=== PATIENT | female | born 1950 | race Two or more races ===

== ENCOUNTER 2022-10-13 12:31 | Inpatient (IN) | payer OTHER ==
[~2022-10-13] VITALS: Ht 165.1 cm; Wt 74.8 kg
--- NOTE | 2022-10-13 12:44 | NUR ---
DR OVIEDO AT BEDSIDE
[2022-10-13 13:43] LABS: BASOPHILS % (AUTO) 0.6 % (0.0-2.0); EOSINOPHILS % (AUTO) 2.6 % (0.0-6.0); HEMATOCRIT 32 % (33-45); HEMOGLOBIN 10.5 g/dL (11.5-14.8); LYMPHOCYTES # (AUTO) 0.6 K/uL (0.8-4.8); LYMPHOCYTES % (AUTO) 16.6 % (20.0-44.0); MEAN CORPUSCULAR HGB CONC 33 g/dl (31.0-36.0); MEAN CORPUSCULAR VOLUME 84 fL (82-100); MONOCYTES # (AUTO) 0.2 K/uL (0.1-1.30); MONOCYTES % (AUTO) 7.1 % (2.0-12.0); NEUTROPHILS # (AUTO) 2.4 K/uL (1.8-8.9); NEUTROPHILS % (AUTO) 73.1 % (43.0-81.0); PLATELET COUNT (AUTO) 292 K/uL (150-450); RED BLOOD CELL COUNT(AUTO) 3.83 MIL/uL (4.0-5.2); WHITE BLOOD COUNT (AUTO) 3.3 K/uL (4.3-11.0)
[2022-10-13 14:03] LABS: CARBON DIOXIDE 31 mmol/L (21-32); CHLORIDE 100 mmol/L (98-107); CREATININE 1.2 mg/dL (0.6-1.3); GLUCOSE 83 mg/dL (74-106); POTASSIUM 3.6 mmol/L (3.5-5.1); SODIUM SERUM 139 mmol/L (136-145); UREA NITROGEN, BLOOD 39 mg/dL (7-18)
[2022-10-13 14:08] LABS: ALANINE AMINOTRANSFERASE 30 U/L (12-78); ALBUMIN 2.3 g/dL (3.4-5.0); ALKALINE PHOSPHATASE 182 U/L (46-116); ASPARTATE AMINOTRANSFERASE 20 U/L (15-37); BILIRUBIN,DIRECT 0.1 mg/dL (0.0-0.2); BILIRUBIN,TOTAL 0.2 mg/dL (0.2-1.0); LIPASE 341 U/L (73-393); TOTAL PROTEIN, SERUM 6.7 g/dL (6.4-8.2)
[2022-10-13] MEDS ORDERED: GLIP5TAB13 PO (15:35)
[2022-10-13] MEDS ORDERED: METF-440 PO (15:35)
[2022-10-13] MEDS ORDERED: FURO-144 PO (15:35)
--- NOTE | 2022-10-13 16:31 | NUR ---
RAPID COVID SWAB DONE AND SENT TO LAB
--- NOTE | 2022-10-13 17:08 | NUR ---
SPOKE TRE RUIZ, ASKED US TO RESEND CLINICALS TO #[phone]
--- NOTE | 2022-10-13 18:11 | NUR ---
urine sample obtained sent to lab
[2022-10-13 18:14] LABS: BILIRUBIN,URINE NEGATIVE (NEGATIVE); COLOR,URINE YELLOW (YELLOW); LEUKOCYTE ESTERASE ,URINE NEGATIVE (NEGATIVE); NITRITE, URINE NEGATIVE (NEGATIVE); PROTEIN,URINE 2+ mg/dl (NEGATIVE); UGLUCOSE NEGATIVE (NEGATIVE); UROBILINOGEN,URINE 0.2 EU/dL (0.2)
[2022-10-13 18:39] LABS: BACTERIA,URINE None seen /HPF (None Seen); SQUAMOUS EPITHELIAL CELL,UR 0-2 /HPF (None Seen); WBC,URINE 0-2 /HPF (0-3)
--- NOTE | 2022-10-13 18:45 | NUR ---
Per vlad gonsalez pt will go to [facility], room pending, fax updated ED note (fax [phone])
--- NOTE | 2022-10-13 19:12 | NUR ---
AUTHORIZATION GIVEN TO STAY
[2022-10-13] MEDS ORDERED: DEXTROSE 50%-WATER 50 ML DISP.SYRIN IV PRN (21:00)
[2022-10-13] MEDS ORDERED: IV D5/ 0.9% NACL 1,000 ML IV PRN (21:00)
[2022-10-13] MEDS ORDERED: ACETAMINOPHEN 325 MG TABLET PO PRN (21:00)
[2022-10-13] MEDS ORDERED: *INSULIN REGULAR(HUMULIN R)HUM 100 UNIT/ML VIAL SQ PRN (21:00)
[2022-10-13] MEDS ORDERED: INSULIN REGULAR, HUMAN 100 UNIT/ML 3 ML VIAL SQ PRN (21:00)
[2022-10-13] MEDS ORDERED: ZOLPIDEM TARTRATE 5 MG TABLET PO PRN (21:00)
--- NOTE | 2022-10-13 21:06 | NUR ---
RECLAMATION WORKER AT PT'S BEDSIDE
[2022-10-13 22:19] LABS: CREATININE 1.2 mg/dL (0.6-1.3); POTASSIUM 4.1 mmol/L (3.5-5.1)
--- NOTE | 2022-10-13 22:39 | NUR ---
GOT BED 328-2.
--- NOTE | 2022-10-13 23:11 | NUR ---
REPORT GIVEN TO MELISSA HARRIS.
--- NOTE | 2022-10-13 23:27 | NUR ---
PT TRANSFERRING TO 3W 328-2 VIA ACLS PROTOCOL. VSS. ALL BELONGINGS WITH PT
[2022-10-13 23:30] VITALS: BP 210/97
[2022-10-13] MEDS: FUROSEMIDE 40 MG/4 ML VIAL IV SCH (23:56)
--- NOTE | 2022-10-14 00:11 | NUR ---
admitted from ER alert and orientated X4 Blood sugar 122 at this time no coverage ordered patient stated "yes" she wanted to be given the ordered Lasix when asked lasix given
--- NOTE | 2022-10-14 05:28 | NUR ---
RN CLOSING NOTES: ADMITTED 10/13 @ 2330 FROM THE ER BLOOD SUGAR AT THIS TIME 122 AMBULATES TO THE BATHROOM WITH STANDBY ASSIST CHANGES HER OWN POSITION IN THE BED CALL LIGHT WITHIN REACH AND SHE WILL USE IT TO NOTIFY THE NURSE THE NEED TO USE THE RESTROOM SHE IS ALERT AND ORIENTATED X4
[2022-10-14] MEDS: BLOOD SUGAR DIAGNOSTIC 1 EACH STRIP VI SCH ×5 (05:55→12:20)
[2022-10-14 06:32] LABS: BASOPHILS % (AUTO) 0.9 % (0.0-2.0); EOSINOPHILS % (AUTO) 3.4 % (0.0-6.0); HEMATOCRIT 29 % (33-45); HEMOGLOBIN 9.6 g/dL (11.5-14.8); LYMPHOCYTES % (AUTO) 18.9 % (20.0-44.0); MEAN CORPUSCULAR HGB CONC 33 g/dl (31.0-36.0); MEAN CORPUSCULAR VOLUME 84 fL (82-100); MONOCYTES # (AUTO) 0.4 K/uL (0.1-1.30); MONOCYTES % (AUTO) 8.5 % (2.0-12.0); NEUTROPHILS # (AUTO) 3.5 K/uL (1.8-8.9); NEUTROPHILS % (AUTO) 68.3 % (43.0-81.0); PLATELET COUNT (AUTO) 292 K/uL (150-450); RED BLOOD CELL COUNT(AUTO) 3.43 MIL/uL (4.0-5.2); WHITE BLOOD COUNT (AUTO) 5.2 K/uL (4.3-11.0)
[2022-10-14 07:00] VITALS: BP 146/67
--- NOTE | 2022-10-14 07:25 | NUR ---
MS RN OPENING NOTES RECEIVED PATIENT IN BED AWAKE AND ALERT. A/O X 4. ABLE TO MAKE NEEDS KNOWN. NO S/S OF RESPIRATORY DISTRESS NOTED, ON ROOM AIR.BREATHING EVEN AND UNLABORED. IV ACCESS ON RAC G#20 INTACT WITH IVF OF D5 NS @ 50ML/HR INFUSING WELL. SAFETY MEASURES GIVEN WITH BED LOCKED AND AT LOWEST POSITION. SIDE-RAILS UP X2, CALL LIGHT AND TRAY WITHIN REACH. WILL CONTINUE WITH THE PLAN OF CARE.
[2022-10-14] MEDS: FUROSEMIDE 40 MG/4 ML VIAL IV SCH (08:54)
--- NOTE | 2022-10-14 13:59 | NUR ---
MS UNDER PRESSER NOTES PATIENT DISCHARGE TO HOME IN MEDICALLY STABLE CONDITION, AWAKE, ALERT AND ORIENTED. A/O X 4. ABLE TO MAKE NEEDS KNOWN. NO S/S OF RESPIRATORY DISTRESS NOTED, ON ROOM AIR. BREATHING EVEN AND UNLABORED. PATIENT HAD VOIDED EARLIER OF THE DAY. ALL BELONGINGS UPON ADMISSION HAD BEEN ACCOUNTED FOR. DISCHARGE INSTRUCTIONS DISCUSSED WITH PATIENT AND DISCHARGE PACKET HANDED OVER. CHARGE NURSE AWARE OF THE DISCHARGE.
== END 2022-10-14 14:00 | disposition home or self-care (01) | DRG 639 ==
LOC: ER 12:43 → TELE 22:46 → MED 10-14 00:20
PROVIDERS: ADMIT Internal Medicine; ATTEND Internal Medicine
DX: E11.649 Type 2 diabetes mellitus with hypoglycemia without coma (principal); Z20.822 Contact with and (suspected) exposure to COVID-19; I10 Essential (primary) hypertension; Z79.84 Long term (current) use of oral hypoglycemic drugs; Z79.899 Other long term (current) drug therapy; D53.9 Nutritional anemia, unspecified
CPT/HCPCS: 36415; 70450-TC; 71045-TC; 80048-TC; 80076-TC; 81001; 82962-TC; 83690-TC; 83735-TC; 83880; 84484-TC; 85025-TC; 87081-TC; C9803; G0378; J1815; J1940; J7042

== ENCOUNTER 2022-11-05 21:19 | Inpatient (IN) | payer OTHER ==
[~2022-11-05] VITALS: Ht 152.4 cm; Wt 78.9 kg
--- NOTE | 2022-11-05 21:20 | NUR ---
BIB DAUGHTER FOR ALTERED MENTAL STATUS AN HOUR AGO. PATIENT IS AAOX0. KNOWN DIABETIC. NON RESPONSIVE TO VERBAL AND NON VERBAL STIMULI. ATTACHED TO MONITOR. VITALS CHECKED. BP 204/121mmHg. DR ANDERSON MADE AWARE
--- NOTE | 2022-11-05 21:23 | NUR ---
IV YAMILET G20 INSERTED ON LEFT AC. BLOOD DRAWN AND SENT TO LAB
--- NOTE | 2022-11-05 21:25 | NUR ---
ACCU CHECK DONE BS OF 19mg/dl. AWARE. TO GIVE D50 50CC IV PUSH
[2022-11-05] MEDS ORDERED: DEXTROSE 50%-WATER 50 ML DISP.SYRIN ONE (21:34)
[2022-11-05] MEDS ORDERED: IV NS 0.9% 250 ML IV ONE (21:47)
[2022-11-05] MEDS ORDERED: IOHEXOL-350 100 ML VIAL IV ONE (21:47)
[2022-11-05] MEDS ORDERED: DEXTROSE 50%-WATER 50 ML DISP.SYRIN IV ONE (22:00)
--- NOTE | 2022-11-05 22:00 | NUR ---
BACK FROM CT
[2022-11-05 22:08] LABS: BASOPHILS % (AUTO) 0.4 % (0.0-2.0); EOSINOPHILS % (AUTO) 2.1 % (0.0-6.0); HEMATOCRIT 34 % (33-45); LYMPHOCYTES # (AUTO) 1.5 K/uL (0.8-4.8); LYMPHOCYTES % (AUTO) 23.2 % (20.0-44.0); MEAN CORPUSCULAR HGB CONC 33 g/dl (31.0-36.0); MEAN CORPUSCULAR VOLUME 82 fL (82-100); MONOCYTES # (AUTO) 0.6 K/uL (0.1-1.30); MONOCYTES % (AUTO) 9.3 % (2.0-12.0); NEUTROPHILS # (AUTO) 4.3 K/uL (1.8-8.9); PLATELET COUNT (AUTO) 293 K/uL (150-450); RED BLOOD CELL COUNT(AUTO) 4.13 MIL/uL (4.0-5.2); WHITE BLOOD COUNT (AUTO) 6.7 K/uL (4.3-11.0)
[2022-11-05 22:17] LABS: CALCIUM, SERUM 8.8 mg/dL (8.5-10.1); CARBON DIOXIDE 33 mmol/L (21-32); CHLORIDE 95 mmol/L (98-107); CREATININE 1.1 mg/dL (0.6-1.3); POTASSIUM 4.2 mmol/L (3.5-5.1); SERUM AMMONIA 5 umol/L (11-32); SODIUM SERUM 132 mmol/L (136-145); UREA NITROGEN, BLOOD 33 mg/dL (7-18)
--- NOTE | 2022-11-05 22:17 | NUR ---
URINE SPECIMEN SENT TO LAB. PATIENT IS MORE ALERT NOW. AAOX4 AFTER D50 50CC IVP
[2022-11-05 22:30] LABS: ALANINE AMINOTRANSFERASE 33 U/L (12-78); ALBUMIN 2.6 g/dL (3.4-5.0); ALKALINE PHOSPHATASE 225 U/L (46-116); ASPARTATE AMINOTRANSFERASE 28 U/L (15-37); BILIRUBIN,DIRECT 0.1 mg/dL (0.0-0.2); BILIRUBIN,TOTAL 0.2 mg/dL (0.2-1.0); TOTAL PROTEIN, SERUM 7.5 g/dL (6.4-8.2)
--- NOTE | 2022-11-05 22:35 | NUR ---
STROKE REASSESSMENT DONE. PATIENT PASSED SWALLOWING EVAL ON REASSESSMENT. LATEST BS IS 55mg/dl
[2022-11-05 22:36] LABS: ALCOHOL, BLOOD < 3 mg/dL (0-0); GLUCOSE 26 mg/dL (74-106)
[2022-11-05 22:41] LABS: THYROID STIMULATING HORMONE 7.046 uIU/mL (0.358-3.74)
[2022-11-05 22:43] LABS: BILIRUBIN,URINE NEGATIVE (NEGATIVE); COLOR,URINE YELLOW (YELLOW); LEUKOCYTE ESTERASE ,URINE NEGATIVE (NEGATIVE); NITRITE, URINE NEGATIVE (NEGATIVE); PROTEIN,URINE 2+ mg/dl (NEGATIVE); UGLUCOSE NEGATIVE (NEGATIVE); UROBILINOGEN,URINE 0.2 EU/dL (0.2)
[2022-11-05 22:47] LABS: BACTERIA,URINE Rare /HPF (None Seen); SQUAMOUS EPITHELIAL CELL,UR Few /HPF (None Seen)
--- NOTE | 2022-11-05 22:50 | NUR ---
COVID SWAB DONE AND SENT TO LAB
[2022-11-05] MEDS ORDERED: IV D5/0.45 NACL 1,000 ML IV ONE (23:00)
[2022-11-05] MEDS ORDERED: LABETALOL HCL IV 100MG VIAL IV ONE (23:00)
--- NOTE | 2022-11-05 23:33 | NUR ---
LABETOLOL 20mg ivp GIVEN FOR BP 197/108mmHg, HR 99bpm
--- NOTE | 2022-11-05 23:49 | NUR ---
Regina kovacs in [facility] - 11/05/22 at 2351 by SILVIA REPORT GIVEN TO MELISSA TRIANA
--- NOTE | 2022-11-05 23:49 | NUR ---
Regina kovacs in ED - 11/05/22 at 2351 by SILVIA INFORMED DAUGHTER SANCHO THAT WE CANNOT TRANSFER PATIENT TO [facility] DUE TO UN AVAILABILITY OF BED. DAUGHTER REQUESTED UPDATE OF MOM'S CONDITION EVERY SHIFT.
--- NOTE | 2022-11-06 00:28 | NUR ---
REPORT GIVEN TO KIMBER LIVINGSTON CM AT [phone]
--- NOTE | 2022-11-06 00:30 | NUR ---
IVF OF D5 0.45NaCl INCREASED TO 150CC/HR.
--- NOTE | 2022-11-06 01:12 | NUR ---
VERBAL AUTH FROM KIMBER OLEARY
--- NOTE | 2022-11-06 02:09 | NUR ---
DR ANDERSON ON THE PHONE WITH DR GARCIA, HOSPITALIST
--- NOTE | 2022-11-06 03:15 | NUR ---
Report given to Demetrio Nuñez. Will transfer Pt to Rm 119-1.
--- NOTE | 2022-11-06 03:56 | NUR ---
SENIOR COPYWRITER NOTE ADMITTED PT FORM ER WITH THE DX OF HYPOGLYCEMIA AND HTN. ON 1L O2 VIA NC O2 SAT 98%. NO DISTRESS OR DISCOMFORT NOTED. DENIES PAIN. SKIN INTACT. A/O X 3. PT ABLE TO AMBULATE WITH ASSISTANCE. LAC # 20 G IVF D 5 1/2 NS INFUSING AT 100 ML/HR, NO S/S OF INFILTRATION NOTED. ALL NEEDS ATTENDED. CONTINUE TO MONITOR HER.
[2022-11-06 04:00] VITALS: BP 164/98
[2022-11-06] MEDS ORDERED: ACETAMINOPHEN 325 MG TABLET PO PRN (05:00)
[2022-11-06] MEDS ORDERED: IV 10% DEXTROSE 1,000 ML IV PRN (05:00)
[2022-11-06] MEDS ORDERED: HYDROCODONE/APAP 10/325MG TABLET PO PRN (05:00)
[2022-11-06] MEDS ORDERED: HYDROCODONE/APAP 5/325MG TABLET PO PRN (05:00)
[2022-11-06] MEDS ORDERED: CLONIDINE HCL 0.1 MG TABLET PO PRN (05:00)
[2022-11-06] MEDS ORDERED: ONDANSETRON HCL/PF 4 MG/2 ML VIAL IV PRN (05:00)
--- NOTE | 2022-11-06 05:00 | NUR ---
BATCH FREEZER OPERATOR NOTE DR GARCIA CALLED AND RECEIVED ADMITTING ORDERS. PT ADMITTED TO TELE AND DX WITH HYPOGLYCEMIA.
[2022-11-06] MEDS ORDERED: BLOOD SUGAR DIAGNOSTIC 1 EACH STRIP IN SCH (06:00)
[2022-11-06] MEDS: hydrALAZINE HCL IV 20 MG VIAL IV PRN (06:05)
[2022-11-06] MEDS: ENOXAPARIN SODIUM 40 MG/0.4 ML DISP.SYRIN SQ SCH (06:05)
[2022-11-06 06:17] LABS: BASOPHILS % (AUTO) 0.4 % (0.0-2.0); EOSINOPHILS % (AUTO) 1.1 % (0.0-6.0); HEMATOCRIT 28 % (33-45); HEMOGLOBIN 9.2 g/dL (11.5-14.8); LYMPHOCYTES # (AUTO) 1.1 K/uL (0.8-4.8); LYMPHOCYTES % (AUTO) 17.5 % (20.0-44.0); MEAN CORPUSCULAR HGB CONC 33 g/dl (31.0-36.0); MEAN CORPUSCULAR VOLUME 82 fL (82-100); MONOCYTES # (AUTO) 0.6 K/uL (0.1-1.30); MONOCYTES % (AUTO) 9.7 % (2.0-12.0); NEUTROPHILS # (AUTO) 4.6 K/uL (1.8-8.9); NEUTROPHILS % (AUTO) 71.3 % (43.0-81.0); PLATELET COUNT (AUTO) 230 K/uL (150-450); RED BLOOD CELL COUNT(AUTO) 3.39 MIL/uL (4.0-5.2); WHITE BLOOD COUNT (AUTO) 6.4 K/uL (4.3-11.0)
--- NOTE | 2022-11-06 06:31 | NUR ---
DINING ROOM HOST/HOSTESS NOTE PT IN NO DISTRESS OR DISCOMFORT, DENIES PAIN. ALL NEEDS ATTENDED. D 10% INFUSING AT 100 ML/HR. NO S/S OF INFILTRATION.
[2022-11-06 06:43] LABS: CALCIUM, SERUM 8.2 mg/dL (8.5-10.1); CARBON DIOXIDE 32 mmol/L (21-32); CHLORIDE 97 mmol/L (98-107); GLUCOSE 82 mg/dL (74-106); MAGNESIUM 1.9 mg/dL (1.8-2.4); PHOSPHORUS 4.4 mg/dL (2.5-4.9); SODIUM SERUM 133 mmol/L (136-145); UREA NITROGEN, BLOOD 33 mg/dL (7-18)
--- NOTE | 2022-11-06 07:45 | NUR ---
TELE OPENING RN NOTE RECEIVED PATIENT IN BED AWAKE, ALERT AND VERBALLY RESPONSIVE, ON 1L O2 VIA NC, TOLERATING WELL, NO DISTRESS OR DISCOMFORT NOTED. DENIES PAIN. SKIN INTACT. A/O X 3. PT ABLE TO AMBULATE WITH ASSISTANCE. LAC # 20 G IVF D 5 1/2 NS INFUSING AT 100 ML/HR, NO S/S OF INFILTRATION NOTED. ON TELE MONITOR WITH SR HR 86. SAFETY PRECAUTION IN PLACED. CALL LIGHT WITHIN REACH. PLAN OF CARE CONTINUE.
[2022-11-06 08:00] VITALS: BP 129/69
[2022-11-06] MEDS ORDERED: DEXTROSE 50%-WATER 50 ML DISP.SYRIN IV PRN (09:00)
--- NOTE | 2022-11-06 09:02 | NUR ---
RECEIVED NEW ORDER FROM DR. NOEL, TO D/C D10, AND RECHECK BLOOD SUGAR IN 1 HOUR, NOTED AND CARRIED OUT. PLAN OF CARE CONTINUE.
[2022-11-06] MEDS: LISINOPRIL (20MG) 20 MG TABLET PO SCH (09:17)
[2022-11-06] MEDS: AZITHROMYCIN 250 MG TABLET PO SCH (09:17)
[2022-11-06] MEDS ORDERED: METF-440 PO (09:44)
[2022-11-06] MEDS ORDERED: GLIP10TA11 PO (09:44)
[2022-11-06] MEDS ORDERED: ALBU18HF2 IH (09:44)
[2022-11-06] MEDS ORDERED: LISI20TA30 PO (09:44)
[2022-11-06] MEDS ORDERED: FURO40TA5 PO (09:44)
[2022-11-06] MEDS ORDERED: SIMV-46 PO (09:44)
--- NOTE | 2022-11-06 10:32 | NUR ---
RECHECKED BLOOD SUGAR NOTED 69MG/DL, PATIENT IS ALERT, INFORMED DR. NOEL, NO NEW ORDERS. PLAN OF CARE CONTINUE.
[2022-11-06 12:00] VITALS: BP 139/79
[2022-11-06] MEDS: BLOOD SUGAR DIAGNOSTIC 1 EACH STRIP VI SCH ×3 (12:01→21:37)
[2022-11-06] MEDS: PIPERACILLIN /TAZOBACTAM 3.375 G in IV D5W 50 ML IV SCH ×3 (12:19→23:23)
[2022-11-06 16:00] VITALS: BP 141/81
--- NOTE | 2022-11-06 18:51 | NUR ---
TELE CLOSING RN NOTE PATIENT IN BED AWAKE, ALERT AND VERBALLY RESPONSIVE, ON RA, TOLERATING WELL, NO DISTRESS OR DISCOMFORT NOTED. DENIES PAIN. SKIN INTACT. A/O X 3. PT ABLE TO AMBULATE WITH ASSISTANCE. LAC # 20 G PATENT AND INTACT, FLUSHES WELL, NO S/S OF INFILTRATION NOTED. ON TELE MONITOR WITH SR HR 97. SAFETY PRECAUTION IN PLACED. CALL LIGHT WITHIN REACH. WILL ENDORSE TO NIGHT NURSE FOR YUE.
--- NOTE | 2022-11-06 19:30 | NUR ---
TELE OPENING RN NOTE RECEIVED PATIENT IN BED AWAKE, ALERT AND VERBALLY RESPONSIVE, FAMILY ON BEDSIDE. CURRENTLY ON RA, TOLERATING WELL. SATING @ 96%. NO S/SX OF ACUTE RESPI DISTRESS NOTED AT THIS TIME. NO SOB; DENIES PAIN. TELE MONITOR READS SR WITH HR IN THE 90s. IV ACCESS ON LAC # 20g, PATENT, INTACT AND FLUSHES WELL. SL ONLY. ALL SAFETY PRECAUTIONS IN PLACE: BED LOCKED IN LOW POSITION, BED ALARM ON. CALL LIGHT WITHIN REACH. WILL CONTINUE TO MONITOR PT.
[2022-11-06 20:00] VITALS: BP 153/85
[2022-11-06] MEDS: *INSULIN REGULAR(HUMULIN R)HUM 100 UNIT/ML VIAL SQ PRN (21:38)
[2022-11-07] VITALS: BP 143/80
[2022-11-07 04:00] VITALS: BP 141/69
[2022-11-07] MEDS: PIPERACILLIN /TAZOBACTAM 3.375 G in IV D5W 50 ML IV SCH ×4 (05:15→23:05)
[2022-11-07] MEDS: ENOXAPARIN SODIUM 40 MG/0.4 ML DISP.SYRIN SQ SCH (05:21)
--- NOTE | 2022-11-07 06:24 | NUR ---
RN NOTE NO SIGNIFICANT CHANGE T/O THE NIGHT. ALL VSS. DUE MEDS GIVEN. NEEDS MET. TURNED AND REPOSITIONED. WILL ENDORSE TO AM SHIFT NURSE FOR YUE.
--- NOTE | 2022-11-07 07:25 | NUR ---
DIE GRINDER OPENING NOTES Received ipt asleep in bed AOX3. No complaints of pain or discomfort at this time. Pt is currently on RA and tolerating it well. IV access on LAC #20G SL. HOB elevated to pts comfort. Siderails up at all times x2. Bed at its lowest setting and locked. Call light within reach. Will continue current plan of care.
[2022-11-07 07:34] LABS: BASOPHILS % (AUTO) 0.8 % (0.0-2.0); EOSINOPHILS % (AUTO) 2.3 % (0.0-6.0); HEMATOCRIT 27 % (33-45); LYMPHOCYTES % (AUTO) 18.4 % (20.0-44.0); MEAN CORPUSCULAR HGB CONC 33 g/dl (31.0-36.0); MEAN CORPUSCULAR VOLUME 82 fL (82-100); MONOCYTES # (AUTO) 0.7 K/uL (0.1-1.30); MONOCYTES % (AUTO) 12.6 % (2.0-12.0); NEUTROPHILS # (AUTO) 3.7 K/uL (1.8-8.9); NEUTROPHILS % (AUTO) 65.9 % (43.0-81.0); PLATELET COUNT (AUTO) 240 K/uL (150-450); RED BLOOD CELL COUNT(AUTO) 3.29 MIL/uL (4.0-5.2); WHITE BLOOD COUNT (AUTO) 5.6 K/uL (4.3-11.0)
[2022-11-07 07:46] LABS: CALCIUM, SERUM 8.2 mg/dL (8.5-10.1); CARBON DIOXIDE 29 mmol/L (21-32); CHLORIDE 98 mmol/L (98-107); CREATININE 1.4 mg/dL (0.6-1.3); GLUCOSE 99 mg/dL (74-106); MAGNESIUM 2.2 mg/dL (1.8-2.4); POTASSIUM 4.4 mmol/L (3.5-5.1); SODIUM SERUM 133 mmol/L (136-145); UREA NITROGEN, BLOOD 40 mg/dL (7-18)
[2022-11-07 08:00] VITALS: BP 148/86
[2022-11-07] MEDS: BLOOD SUGAR DIAGNOSTIC 1 EACH STRIP VI SCH ×4 (08:01→21:52)
[2022-11-07 08:04] LABS: IRON, SERUM 18 ug/dl (50-175); TOTAL IRON BINDING CAPACITY 248 ug/dl (250-450)
[2022-11-07 08:13] LABS: THYROID STIMULATING HORMONE 5.282 uIU/mL (0.358-3.74)
[2022-11-07] MEDS ORDERED: IV 1/2NS 1000 ML 1,000 ML IV SCH (08:30)
[2022-11-07] MEDS ORDERED: FUROSEMIDE 40 MG/4 ML VIAL IV ONE (09:00)
[2022-11-07] MEDS: FERROUS SULFATE (325 MG) 325 MG/TAB TABLET PO SCH ×2 (09:21→16:53)
[2022-11-07] MEDS: AZITHROMYCIN 250 MG TABLET PO SCH (09:21)
[2022-11-07] MEDS: LISINOPRIL (20MG) 20 MG TABLET PO SCH (09:21)
[2022-11-07] MEDS: INSULIN REGULAR, HUMAN 100 UNIT/ML 3 ML VIAL SQ PRN ×2 (11:40→16:59)
[2022-11-07 12:00] VITALS: BP 146/82
[2022-11-07 16:00] VITALS: BP 144/83
--- NOTE | 2022-11-07 18:30 | NUR ---
CARD CUTTER CLOSING NOTES All due meds and tx given as ordered. Pt tolerated everything well. All needs attended to. Pt is RA and tolerating it well. IV access on LAC 20G patent and intact. HOB elevated to pts comfort. Siderails up at all times x2. Bed at its lowest setting and locked. Call light within reach. Will endorse to oncoming nurse.
--- NOTE | 2022-11-07 19:30 | NUR ---
TELE OPENING RN NOTE RECEIVED PATIENT IN BED AWAKE, ALERT AND VERBALLY RESPONSIVE. CURRENTLY ON RA, TOLERATING WELL. SATING @ 96%. NO S/SX OF ACUTE RESPI DISTRESS NOTED AT THIS TIME. NO SOB; DENIES PAIN. TELE MONITOR READS SR WITH HR IN THE 90s. IV ACCESS ON LAC # 20g, PATENT, INTACT AND FLUSHES WELL. SL ONLY. ALL SAFETY PRECAUTIONS IN PLACE: BED LOCKED IN LOW POSITION, BED ALARM ON. CALL LIGHT WITHIN REACH. WILL CONTINUE TO MONITOR PT.
[2022-11-07 20:00] VITALS: BP 160/70
[2022-11-07] MEDS: *INSULIN REGULAR(HUMULIN R)HUM 100 UNIT/ML VIAL SQ PRN (21:55)
[2022-11-07] MEDS: hydrALAZINE HCL IV 20 MG VIAL IV PRN (22:31)
--- NOTE | 2022-11-07 23:47 | NUR ---
GAVE REPORT TO MELISSA BAJWA.
[2022-11-08] VITALS: BP 139/75
--- NOTE | 2022-11-08 00:26 | NUR ---
RN NOTE RECEIVED PT FROM VAISHALI TORRES.
[2022-11-08 04:00] VITALS: BP 120/66
--- NOTE | 2022-11-08 05:29 | NUR ---
RN NOTE PT REFUSING BED BATH AND LINEN CHANGE AT THIS TIME AND HAS REFUSED ALL SHIFT. EXPLAINED BENEFITS OF BED BATH AND LINEN CHANGE AND PT STILL REFUSED.
[2022-11-08] MEDS: PIPERACILLIN /TAZOBACTAM 3.375 G in IV D5W 50 ML IV SCH (05:45)
--- NOTE | 2022-11-08 06:51 | NUR ---
DIRECTOR DRUG SAFETY CLOSING NOTE PATIENT IN BED AWAKE. A/O X4 AND ABLE TO MAKE NEEDS KNOWN. PT STABLE ON RA, TOLERATING WELL. NO SOB OR S/S OF RESPIRATORY DISTRESS AT THIS TIME. BREATHING EVEN AND UNLABORED. ON EXTERNAL CHARGE GANG WEIGHER READING SR 92 BPM. IV ACCESS LAC 20G SL, INTACT AND PATENT. ALL DUE MEDS GIVEN ORDERED. SAFETY PRECAUTIONS IN PLACE. BED IN LOWEST LOCKED POSITION, HOB ELEVATED, SIDE RAILS UP X2, AND CALL LIGHT AND TABLE WITHIN REACH. ALL NEEDS MET AT THIS TIME AND WILL ENDORSE TO ONCOMING NURSE FOR YUE.
--- NOTE | 2022-11-08 07:30 | NUR ---
OPENING NOTES Received pt asleep in bed AOX3. No complaints of pain or discomfort at this time. Pt is currently on RA and tolerating it well. IV access on LAC #20G SL. HOB elevated to pts comfort. Siderails up at all times x2. Bed at its lowest setting and locked. Call light within reach. Will continue current plan of care.
[2022-11-08 07:57] LABS: CALCIUM, SERUM 8.3 mg/dL (8.5-10.1); CARBON DIOXIDE 29 mmol/L (21-32); CHLORIDE 99 mmol/L (98-107); CREATININE 1.6 mg/dL (0.6-1.3); GLUCOSE 98 mg/dL (74-106); POTASSIUM 4.1 mmol/L (3.5-5.1); SODIUM SERUM 134 mmol/L (136-145); UREA NITROGEN, BLOOD 49 mg/dL (7-18)
[2022-11-08 08:00] VITALS: BP 130/66
[2022-11-08] MEDS: FERROUS SULFATE (325 MG) 325 MG/TAB TABLET PO SCH ×2 (08:17→16:29)
[2022-11-08] MEDS: LISINOPRIL (20MG) 20 MG TABLET PO SCH (08:19)
[2022-11-08] MEDS: BLOOD SUGAR DIAGNOSTIC 1 EACH STRIP VI SCH ×4 (08:27→21:00)
[2022-11-08] MEDS ORDERED: FUROSEMIDE 20 MG/2 ML VIAL IV SCH (09:00)
[2022-11-08] MEDS ORDERED: AMLODIPINE BESYLATE 5 MG TABLET PO SCH (09:00)
[2022-11-08] MEDS ORDERED: FUROSEMIDE 40 MG/4 ML VIAL IV SCH (09:00)
[2022-11-08] MEDS: AMOX/CLAVULANATE 875 MG TABLET PO SCH ×2 (09:20→21:00)
--- NOTE | 2022-11-08 10:45 | NUR ---
THORACENTESIS IS DONE ,12OOCC OUT AND SENT TO THE LAB, CHEST XRAY STAT PER ORDER. PATIENT IS STABLE.
[2022-11-08] MEDS: *INSULIN REGULAR(HUMULIN R)HUM 100 UNIT/ML VIAL SQ PRN ×3 (11:51→21:04)
[2022-11-08 12:00] VITALS: BP 123/70
[2022-11-08 16:00] VITALS: BP 145/71
--- NOTE | 2022-11-08 18:26 | NUR ---
CLOSING NOTE PATIENT IN BED AWAKE. A/O X4 AND ABLE TO MAKE NEEDS KNOWN. PT STABLE ON RA, TOLERATING WELL. NO SOB OR S/S OF RESPIRATORY DISTRESS AT THIS TIME. BREATHING EVEN AND UNLABORED. ON EXTERNAL DECORATIVE GREENS CUTTER READING SR 92 BPM. IV ACCESS LAC 20G SL, INTACT AND PATENT. ALL DUE MEDS GIVEN ORDERED. SAFETY PRECAUTIONS IN PLACE. BED IN LOWEST LOCKED POSITION, HOB ELEVATED, SIDE RAILS UP X2, AND CALL LIGHT AND TABLE WITHIN REACH. ALL NEEDS MET.
[2022-11-08 20:00] VITALS: BP 169/95
[2022-11-09 04:00] VITALS: BP 142/85
[2022-11-09] MEDS: BLOOD SUGAR DIAGNOSTIC 1 EACH STRIP VI SCH ×4 (07:10→21:57)
[2022-11-09 07:14] LABS: BASOPHILS % (AUTO) 0.4 % (0.0-2.0); EOSINOPHILS % (AUTO) 1.8 % (0.0-6.0); HEMATOCRIT 29 % (33-45); HEMOGLOBIN 9.4 g/dL (11.5-14.8); LYMPHOCYTES % (AUTO) 15.1 % (20.0-44.0); MEAN CORPUSCULAR HGB CONC 33 g/dl (31.0-36.0); MEAN CORPUSCULAR VOLUME 82 fL (82-100); MONOCYTES # (AUTO) 0.7 K/uL (0.1-1.30); MONOCYTES % (AUTO) 10.8 % (2.0-12.0); NEUTROPHILS # (AUTO) 4.6 K/uL (1.8-8.9); NEUTROPHILS % (AUTO) 71.9 % (43.0-81.0); PLATELET COUNT (AUTO) 251 K/uL (150-450); WHITE BLOOD COUNT (AUTO) 6.4 K/uL (4.3-11.0)
[2022-11-09 07:24] LABS: CALCIUM, SERUM 8.5 mg/dL (8.5-10.1); CARBON DIOXIDE 31 mmol/L (21-32); CHLORIDE 100 mmol/L (98-107); CREATININE 1.7 mg/dL (0.6-1.3); GLUCOSE 125 mg/dL (74-106); POTASSIUM 4.8 mmol/L (3.5-5.1); SODIUM SERUM 135 mmol/L (136-145); UREA NITROGEN, BLOOD 58 mg/dL (7-18)
[2022-11-09 08:00] VITALS: BP 138/63
[2022-11-09] MEDS ORDERED: FUROSEMIDE 20 MG/2 ML VIAL IV SCH (09:00)
[2022-11-09] MEDS: FERROUS SULFATE (325 MG) 325 MG/TAB TABLET PO SCH ×2 (09:03→16:24)
[2022-11-09] MEDS: AMOX/CLAVULANATE 875 MG TABLET PO SCH ×2 (09:03→21:56)
[2022-11-09] MEDS: AMLODIPINE BESYLATE 5 MG TABLET PO SCH (09:06)
[2022-11-09] MEDS: LINAGLIPTIN 5 MG TABLET PO SCH (09:08)
[2022-11-09] MEDS: INSULIN REGULAR, HUMAN 100 UNIT/ML 3 ML VIAL SQ PRN ×2 (11:56→22:05)
[2022-11-09 12:00] VITALS: BP 151/76
[2022-11-09] MEDS: ATORVASTATIN 40 MG TABLET PO SCH ×2 (13:35→21:57)
[2022-11-09] MEDS: ASPIRIN EC 81 MG TABLET.DR PO SCH (13:35)
[2022-11-09] MEDS: METOPROLOL TARTRATE 25 MG TABLET PO SCH ×2 (13:36→21:56)
[2022-11-09 16:00] VITALS: BP 137/66
[2022-11-09] MEDS: *INSULIN REGULAR(HUMULIN R)HUM 100 UNIT/ML VIAL SQ PRN (16:31)
--- NOTE | 2022-11-09 18:13 | NUR ---
CLOSING NOTE PATIENT IN BED AWAKE. A/O X4 AND ABLE TO MAKE NEEDS KNOWN. PT STABLE ON RA, TOLERATING WELL. NO SOB OR S/S OF RESPIRATORY DISTRESS AT THIS TIME. BREATHING EVEN AND UNLABORED. ON EXTERNAL BURRITO MAKER READING SR 92 BPM. IV ACCESS LAC 20G SL, INTACT AND PATENT. ALL DUE MEDS GIVEN ORDERED. SAFETY PRECAUTIONS IN PLACE. BED IN LOWEST LOCKED POSITION, HOB ELEVATED, SIDE RAILS UP X2, AND CALL LIGHT AND TABLE WITHIN REACH. ALL NEEDS MET.
[2022-11-09 20:00] VITALS: BP 128/78
[2022-11-10] VITALS: BP 128/69
[2022-11-10 04:00] VITALS: BP 136/78
[2022-11-10] MEDS: BLOOD SUGAR DIAGNOSTIC 1 EACH STRIP VI SCH ×2 (06:39→12:14)
[2022-11-10 07:24] LABS: CALCIUM, SERUM 8.3 mg/dL (8.5-10.1); CARBON DIOXIDE 30 mmol/L (21-32); CHLORIDE 99 mmol/L (98-107); CREATININE 1.5 mg/dL (0.6-1.3); GLUCOSE 148 mg/dL (74-106); POTASSIUM 4.5 mmol/L (3.5-5.1); SODIUM SERUM 134 mmol/L (136-145); UREA NITROGEN, BLOOD 62 mg/dL (7-18)
[2022-11-10 08:00] VITALS: BP 126/65
[2022-11-10] MEDS ORDERED: METO25TA20 PO (09:02)
[2022-11-10] MEDS ORDERED: AMOX1TAB16 PO (09:02)
[2022-11-10] MEDS ORDERED: AMLO-212 PO (09:02)
[2022-11-10] MEDS ORDERED: Aspirin Ec PO (09:02)
[2022-11-10] MEDS ORDERED: LINA5TAB PO (09:02)
[2022-11-10] MEDS ORDERED: FERR325T28 PO (09:02)
--- NOTE | 2022-11-10 11:41 | NUR ---
RN NOTE PATIENT WILL BE PICKED UP FOR HOME AT 1400.
[2022-11-10 12:00] VITALS: BP 131/76
[2022-11-10] MEDS: AMOX/CLAVULANATE 875 MG TABLET PO SCH (12:24)
[2022-11-10] MEDS: LINAGLIPTIN 5 MG TABLET PO SCH (12:24)
[2022-11-10] MEDS: ASPIRIN EC 81 MG TABLET.DR PO SCH (12:24)
[2022-11-10 12:25] VITALS: BP 126/65
[2022-11-10] MEDS: AMLODIPINE BESYLATE 5 MG TABLET PO SCH (12:25)
[2022-11-10] MEDS: METOPROLOL TARTRATE 25 MG TABLET PO SCH (12:25)
[2022-11-10] MEDS: FERROUS SULFATE (325 MG) 325 MG/TAB TABLET PO SCH (12:25)
--- NOTE | 2022-11-10 15:01 | NUR ---
RN NOTE PATIENT DISCHARGED HOME IN STABLE CONDITION. IV ACCESS REMOVED, TELE MONITOR REMOVED. DISCHARGE PACKET AND BELONGING LIST SIGNED. HOME MEDICATION RETURNED. PATIENT VERBALIZED UNDERSTANDING OF DISCHARGE INSTRUCTIONS AND MEDICATIONS. CHANTALE GIL ESCORTED PATIENT VIA WHEELCHAIR TO FRONT OF HOSPITAL WHERE NEPHEW PICKED PATIENT UP. CHARGE NURSE AWARE.
== END 2022-11-10 15:24 | disposition home or self-care (01) | DRG 177 ==
LOC: ER 21:24 → TELE1 11-06 02:55
PROVIDERS: ADMIT Internal Medicine; ATTEND Internal Medicine
PROC: 0W993ZZ Drainage of Right Pleural Cavity, Percutaneous Approach (ICD-10-PCS; principal; 2022-11-08)
DX: J69.0 Pneumonitis due to inhalation of food and vomit (principal); I50.43 Acute on chronic combined systolic (congestive) and diastolic (congestive) heart failure; N17.0 Acute kidney failure with tubular necrosis; J90 Pleural effusion, not elsewhere classified; I13.0 Hypertensive heart and chronic kidney disease with heart failure and stage 1 through stage 4 chronic kidney disease, or unspecified chronic kidney disease; I42.9 Cardiomyopathy, unspecified; E11.649 Type 2 diabetes mellitus with hypoglycemia without coma; Z20.822 Contact with and (suspected) exposure to COVID-19; N18.9 Chronic kidney disease, unspecified; E11.22 Type 2 diabetes mellitus with diabetic chronic kidney disease; Z79.84 Long term (current) use of oral hypoglycemic drugs; Z79.899 Other long term (current) drug therapy; D50.9 Iron deficiency anemia, unspecified; I65.22 Occlusion and stenosis of left carotid artery; I25.10 Atherosclerotic heart disease of native coronary artery without angina pectoris
CPT/HCPCS: 36415; 70450-TC; 70496-TC; 70498-TC; 71045-TC; 80048-TC; 80076-TC; 81001; 82140-TC; 82962-TC; 83540-TC; 83605-TC; 83735-TC; 84100-TC; 84439-TC; 84443-TC; 84481; 85025-TC; 85610-TC; 85730-TC; 87081-TC; 87086-TC; 88108-TC; 88305-TC; 88312-TC; 89051-TC; 93307-TC; C9803; G0378; G0480; J0360; J1650; J1815; J1940; J2405; J2543; J3490; J7050; J7060; Q9967

== ENCOUNTER 2022-11-23 13:31 | Inpatient (IN) | payer OTHER ==
[~2022-11-23] VITALS: Ht 165.1 cm; Wt 83.5 kg
[~2022-11-23 13:31] MED LIST: ALBU18HF2 IH; AMLO-212 PO; AMOX1TAB16 PO; Aspirin Ec PO; FERR325T28 PO; FURO40TA5 PO; LINA5TAB PO; METF-440 PO; METO25TA20 PO; SIMV-46 PO
--- NOTE | 2022-11-23 14:00 | NUR ---
PT IN BED BREATHING IS SHALLOW, AND EVEN, AUSCULTATION OF LUNGS REVEALED CRACKLES. PT HAS A HISTORY OF CHF. LEGS ARE EDEMATOUS +3 PITTING EDEMA. PEDAL PULSES ARE WEAK CAP REFILL <3 SEC. RADIAL PULSES +2. S1 AND S2 HEART SOUNDS AUSCLUTATED. A/O X4 FINNISH SPEAKING CONNECTED TO BEDSIDE MONITOR 3 LEAD EKG, O2 SAT, RESPIRATIONS AND BP. SIDE RAILS UP DAUGHTER IN ROOM. AWAITING ORDERS.
--- NOTE | 2022-11-23 14:03 | NUR ---
IV ESTABLISHED. L AC 20G
--- NOTE | 2022-11-23 14:03 | NUR ---
BLOOD DRAWN AND SENT TO LAB
[2022-11-23 14:42] LABS: BASOPHILS % (AUTO) 0.5 % (0.0-2.0); EOSINOPHILS % (AUTO) 2.2 % (0.0-6.0); HEMATOCRIT 32 % (33-45); LYMPHOCYTES # (AUTO) 0.9 K/uL (0.8-4.8); LYMPHOCYTES % (AUTO) 16.6 % (20.0-44.0); MEAN CORPUSCULAR HGB CONC 32 g/dl (31.0-36.0); MEAN CORPUSCULAR VOLUME 82 fL (82-100); MONOCYTES # (AUTO) 0.4 K/uL (0.1-1.30); MONOCYTES % (AUTO) 7.2 % (2.0-12.0); NEUTROPHILS # (AUTO) 3.8 K/uL (1.8-8.9); NEUTROPHILS % (AUTO) 73.5 % (43.0-81.0); PLATELET COUNT (AUTO) 299 K/uL (150-450); RED BLOOD CELL COUNT(AUTO) 3.85 MIL/uL (4.0-5.2); WHITE BLOOD COUNT (AUTO) 5.1 K/uL (4.3-11.0)
[2022-11-23 14:54] LABS: CALCIUM, SERUM 8.6 mg/dL (8.5-10.1); CARBON DIOXIDE 30 mmol/L (21-32); CHLORIDE 98 mmol/L (98-107); CREATININE 1.1 mg/dL (0.6-1.3); GLUCOSE 122 mg/dL (74-106); POTASSIUM 4.9 mmol/L (3.5-5.1); SODIUM SERUM 131 mmol/L (136-145); UREA NITROGEN, BLOOD 38 mg/dL (7-18)
[2022-11-23 15:07] LABS: ALANINE AMINOTRANSFERASE 30 U/L (12-78); ALBUMIN 2.6 g/dL (3.4-5.0); ALKALINE PHOSPHATASE 216 U/L (46-116); ASPARTATE AMINOTRANSFERASE 23 U/L (15-37); BILIRUBIN,DIRECT 0.2 mg/dL (0.0-0.2); BILIRUBIN,TOTAL 0.3 mg/dL (0.2-1.0); TOTAL PROTEIN, SERUM 6.9 g/dL (6.4-8.2)
[2022-11-23] MEDS ORDERED: FERR325T24 PO (15:12)
[2022-11-23] MEDS ORDERED: FUROSEMIDE 40 MG/4 ML VIAL IV ONE (15:30)
[2022-11-23] MEDS ORDERED: FUROSEMIDE 40 MG/4 ML VIAL ONE (15:39)
--- NOTE | 2022-11-23 17:05 | NUR ---
COVID SWAB TAKEN AND SENT TO LAB
--- NOTE | 2022-11-23 17:11 | NUR ---
AFTER BLADER SCAN 300+ FOUND IN BALDDER SCAN MD SARKAR LIM CATHETER INSERTED.
--- NOTE | 2022-11-23 17:21 | NUR ---
550ML DRAINED FROM LIM.
--- NOTE | 2022-11-23 21:08 | NUR ---
[facility], CM: [phone]
--- NOTE | 2022-11-23 21:22 | NUR ---
PAGED DR GARCIA, [facility]/ [facility]
--- NOTE | 2022-11-23 21:35 | NUR ---
REPORT GIVEN TO ORION TORRES FOR INPATIENT ADMISSION.
--- NOTE | 2022-11-23 21:43 | NUR ---
DR CHAPPELL ON THE PHONE WITH DR GARCIA
[2022-11-23] MEDS ORDERED: BUMETANIDE INJ 0.25 MG/ML VIAL ONE (21:58)
[2022-11-23] MEDS ORDERED: BUMETANIDE INJ 1 MG in IV NS 0.9% 40 ML IV ONE (22:00)
[2022-11-23] MEDS ORDERED: HYDROCODONE/APAP 5/325MG TABLET PO PRN (23:30)
[2022-11-23] MEDS ORDERED: ACETAMINOPHEN 325 MG TABLET PO PRN (23:30)
[2022-11-23] MEDS ORDERED: ONDANSETRON HCL/PF 4 MG/2 ML VIAL IV PRN (23:30)
[2022-11-23] MEDS ORDERED: HYDROCODONE/APAP 10/325MG TABLET PO PRN (23:30)
--- NOTE | 2022-11-23 23:33 | NUR ---
PT TRANSPORTED W/ ACLS PROTOCOL TO INPATIENT ROOM A/O X4 BREATHING EVENLY AND UNLABORED. BUMETANIDE INFUSION COMPLETED PTS BP WAS SLIGHTLY ELVATED SBP IN THE 160/78. LIM INTACT AND DRAINING PT DEINIES PAIN. TRANSPORTED TO BED NO ADVERSE EVENTS NOTED.
[2022-11-24] VITALS: BP 155/85
[2022-11-24] MEDS ORDERED: ALBUTEROL FS 2.5 MG/0.5 ML VIAL.NEB NEB PRN
[2022-11-24] MEDS ORDERED: INSULIN REGULAR, HUMAN 100 UNIT/ML 3 ML VIAL SQ PRN
[2022-11-24] MEDS ORDERED: IPRATROPIUM NEB FS 0.5 MG/2.5 ML AMPUL.NEB NEB PRN
--- NOTE | 2022-11-24 | NUR ---
MECHANICAL MAINTENANCEVAMP LINER NOTE RECEIVED REPORT FROM ANA VAZQUEZRN AND PATIENT WAS BROUGHT TO THE UNIT AT AROUND 2320 VIA STRETCHER, ACCOMPANIED BY 2 STAFFS. PATIENT CAME D/T SWOLLEN LEGS, EASY FATIGABILITY AND OLIGURIA. PATIENT WAS ADMITTED IN THE HOSPITAL 2 WEEKS AGO. PATIENT IS ALERT AND ORIENTED X4. [place]ER SPEAKING BUT CAN UNDERSTAND TURKM[place]. ABLE TO MAKE NEEDS KNOWN. AFEBRILE AND NOT IN ANY FORM OF ACUTE DISTRESS. NO C/O PAIN OR DISCOMFORT. PLACED ON O2 VIA NASAL CANNULA AT 2LPM. EXPLAINED ADMISSION PROCESS INCLUDING SKIN ASSESSMENT AND PATIENT AGREED. PATIENT WAS NOTED WITH SCABS ON BLE AND OLD ABDOMINAL SURGICAL SCAR. ALSO NOTED WITH SLIGHT BLADDER DISTENTION. HAS INTACT LIM CATHETER, DRAINING WELL WITH YELLOW URINE OUTPUT. WITH IV ACCESS ON PABLO 20G-SL. BELONGINGS AND VALUABLE WERE PROPERLY DOCUMENTED AND PATIENT HAS NOVA ($723.00) AND WAS SURRENDERED TO TRAFFIC AGENT AND STORED IN THE LOCK BOX FOR SAFE KEEPING. SAFETY MEASURES IN PLACE. KEPT BED IN LOCKED AND IN LOW POSITION. SIDE RAILS UP X2. ADVISED TO USE THE CALL LIGHT WHEN IN NEED OF ASSISTANCE.
[2022-11-24 04:00] VITALS: BP 159/76
--- NOTE | 2022-11-24 06:30 | NUR ---
WINDING INSPECTOR CLOSING NOTE PATIENT IN BED, ASLEEP BUT EASY TO AROUSE AND RESPONSIVE. ALERT AND ORIENTED X4. AFEBRILE AND NOT IN ANY FORM OF ACUTE DISTRESS. ON O2 INHALATION VIA NASAL CANNULA AT 2LPM. ON TELE MONITORING WITH CURRENT READING OF SR 76. WITH IV ACCESS ON PABLO 20G-SL. WITH INTACT LIM CATHETER, DRAINING WELL WITH YELLOW URINE OUTPUT, NO HEMATURIA OR SEDIMENTS NOTED WITH APPROX 1800ML URINE OUTPUT DURING THE SHIFT. MONITORED FOR ANY S/SX. OF HYPO/HYPERGLYCEMIA. SAFETY MEASURES IN PLACE. KEPT BED IN LOCKED AND IN LOW POSITION. SIDE RAILS UP X2. ADVISED TO USE THE CALL LIGHT WHEN IN NEED OF ASSISTANCE. ALL NURSING NEEDS ATTENDED. ENDORSED TO INCOMING SHIFT FOR CONTINUITY OF CARE.
[2022-11-24 06:37] LABS: BASOPHILS % (AUTO) 0.8 % (0.0-2.0); EOSINOPHILS % (AUTO) 2.7 % (0.0-6.0); HEMATOCRIT 29 % (33-45); HEMOGLOBIN 9.6 g/dL (11.5-14.8); LYMPHOCYTES # (AUTO) 0.8 K/uL (0.8-4.8); LYMPHOCYTES % (AUTO) 15.4 % (20.0-44.0); MEAN CORPUSCULAR HGB CONC 33 g/dl (31.0-36.0); MEAN CORPUSCULAR VOLUME 81 fL (82-100); MONOCYTES # (AUTO) 0.4 K/uL (0.1-1.30); MONOCYTES % (AUTO) 8.5 % (2.0-12.0); NEUTROPHILS # (AUTO) 3.7 K/uL (1.8-8.9); NEUTROPHILS % (AUTO) 72.6 % (43.0-81.0); PLATELET COUNT (AUTO) 255 K/uL (150-450); RED BLOOD CELL COUNT(AUTO) 3.63 MIL/uL (4.0-5.2); WHITE BLOOD COUNT (AUTO) 5.1 K/uL (4.3-11.0)
[2022-11-24 06:59] LABS: CALCIUM, SERUM 8.6 mg/dL (8.5-10.1); CREATININE 1.1 mg/dL (0.6-1.3); POTASSIUM 4.5 mmol/L (3.5-5.1)
--- NOTE | 2022-11-24 07:20 | NUR ---
MS RN RECEIVED ON BED, AWAKE,ALERT,ORIENTED X4,NOT IN ANY FORM OF DISTRESS , RESPIRATIONS EVEN AND UNLABORED,NO SOB NOTED, LUNGS ARE DIMINISH, ABDOMEN SOFT,POSITIVE BOWEL SOUNDS,REPOSITIONED FOR COMFORT,ALL NEEDS ATTENDED.
[2022-11-24] MEDS: BLOOD SUGAR DIAGNOSTIC 1 EACH STRIP IN SCH ×4 (07:30→21:43)
[2022-11-24 08:00] VITALS: BP 153/85
[2022-11-24] MEDS ORDERED: METOPROLOL TARTRATE 25 MG TABLET PO SCH (09:00)
[2022-11-24] MEDS ORDERED: METOPROLOL SUCCINATE 50 MG TAB.SR.24H PO SCH (09:00)
[2022-11-24] MEDS ORDERED: AMLODIPINE BESYLATE 10 MG TABLET PO SCH (09:00)
[2022-11-24] MEDS ORDERED: FUROSEMIDE 40 MG/4 ML VIAL IV SCH (09:00)
[2022-11-24] MEDS: ASPIRIN 81 MG TAB.CHEW PO SCH (09:08)
[2022-11-24] MEDS ORDERED: DEXTROSE 50%-WATER 50 ML DISP.SYRIN IV PRN ×2 (09:30)
[2022-11-24] MEDS: FUROSEMIDE 40 MG/4 ML VIAL IV SCH ×2 (10:32→16:32)
[2022-11-24] MEDS: LISINOPRIL (20MG) 20 MG TABLET PO SCH (10:34)
[2022-11-24] MEDS: POTASSIUM CHLORIDE 20 MEQ TAB.PRT.SR PO SCH (10:35)
[2022-11-24] MEDS: ENOXAPARIN SODIUM 40 MG/0.4 ML DISP.SYRIN SQ SCH (10:37)
[2022-11-24] MEDS: *INSULIN REGULAR(HUMULIN R)HUM 100 UNIT/ML VIAL SQ PRN ×2 (11:22→17:10)
[2022-11-24] MEDS: BLOOD SUGAR DIAGNOSTIC 1 EACH STRIP VI SCH ×3 (11:24→21:45)
[2022-11-24] MEDS ORDERED: hydrALAZINE HCL 10 MG TABLET PO PRN (11:30)
[2022-11-24 12:00] VITALS: BP 124/83
[2022-11-24 16:00] VITALS: BP 142/78
[2022-11-24] MEDS: FERROUS SULFATE (325 MG) 325 MG/TAB TABLET PO SCH (16:34)
[2022-11-24] MEDS: METFORMIN 500 MG TABLET PO SCH (16:35)
[2022-11-24] MEDS: CARVEDILOL 12.5 MG TABLET PO SCH (16:35)
[2022-11-24 20:00] VITALS: BP 142/76
--- NOTE | 2022-11-24 20:00 | NUR ---
Pt.awake and alert, denies any pain or discomfort , no shortness of breath observed, cooperative with care, may catheter intact with light michaela urine in drainage bag.
[2022-11-24] MEDS: INSULIN REGULAR, HUMAN 100 UNIT/ML 3 ML VIAL SQ PRN (23:16)
[2022-11-25] VITALS: BP 148/68
--- NOTE | 2022-11-25 | NUR ---
Pt. sleeping, no acute distress observed, will cintinue to monitor.
[2022-11-25] MEDS: FUROSEMIDE 40 MG/4 ML VIAL IV SCH ×3 (01:23→17:31)
[2022-11-25 04:00] VITALS: BP 139/85
[2022-11-25] MEDS: BLOOD SUGAR DIAGNOSTIC 1 EACH STRIP VI SCH ×4 (06:48→21:31)
[2022-11-25] MEDS: BLOOD SUGAR DIAGNOSTIC 1 EACH STRIP IN SCH ×3 (06:50→17:30)
[2022-11-25 07:08] LABS: BASOPHILS % (AUTO) 0.7 % (0.0-2.0); EOSINOPHILS % (AUTO) 2.3 % (0.0-6.0); HEMATOCRIT 29 % (33-45); HEMOGLOBIN 9.3 g/dL (11.5-14.8); LYMPHOCYTES # (AUTO) 0.7 K/uL (0.8-4.8); LYMPHOCYTES % (AUTO) 17.5 % (20.0-44.0); MEAN CORPUSCULAR HGB CONC 32 g/dl (31.0-36.0); MEAN CORPUSCULAR VOLUME 81 fL (82-100); MONOCYTES # (AUTO) 0.3 K/uL (0.1-1.30); NEUTROPHILS # (AUTO) 2.9 K/uL (1.8-8.9); NEUTROPHILS % (AUTO) 71.5 % (43.0-81.0); PLATELET COUNT (AUTO) 243 K/uL (150-450); RED BLOOD CELL COUNT(AUTO) 3.54 MIL/uL (4.0-5.2)
[2022-11-25 07:24] LABS: CREATININE 1.1 mg/dL (0.6-1.3); POTASSIUM 4.6 mmol/L (3.5-5.1)
[2022-11-25 07:37] LABS: THYROID STIMULATING HORMONE 12.574 uIU/mL (0.358-3.74)
--- NOTE | 2022-11-25 07:40 | NUR ---
HIV PREVENTION SPECIALIST OPENING NOTE PATIENT IN BED, ASLEEP BUT EASY TO AROUSE AND RESPONSIVE. ALERT AND ORIENTED X4. AFEBRILE AND NOT IN ANY FORM OF ACUTE DISTRESS. ON O2 INHALATION VIA NASAL CANNULA AT 2LPM. ON TELE MONITORING . WITH IV ACCESS ON PABLO 20G-SL. WITH INTACT LIM CATHETER, DRAINING WELL WITH YELLOW URINE OUTPUT, NO HEMATURIA OR SEDIMENTS NOTED. SAFETY MEASURES IN PLACE. KEPT BED IN LOCKED AND IN LOW POSITION. SIDE RAILS UP X2. ADVISED TO USE THE CALL LIGHT WHEN IN NEED OF ASSISTANCE.
[2022-11-25 08:00] VITALS: BP 144/71
[2022-11-25] MEDS: ENOXAPARIN SODIUM 40 MG/0.4 ML DISP.SYRIN SQ SCH (09:00)
[2022-11-25] MEDS: ASPIRIN 81 MG TAB.CHEW PO SCH (09:00)
--- NOTE | 2022-11-25 09:08 | NUR ---
RN NOTE PATIENT HAVING THORACENTESIS PROCEDURE WILL HOLD ALL ANTICOAGULANTS
[2022-11-25] MEDS: FERROUS SULFATE (325 MG) 325 MG/TAB TABLET PO SCH ×2 (09:16→17:24)
[2022-11-25] MEDS: POTASSIUM CHLORIDE 20 MEQ TAB.PRT.SR PO SCH (09:16)
[2022-11-25] MEDS: LINAGLIPTIN 5 MG TABLET PO SCH (09:16)
[2022-11-25] MEDS: METFORMIN 500 MG TABLET PO SCH ×2 (09:16→17:22)
[2022-11-25] MEDS: LISINOPRIL (20MG) 20 MG TABLET PO SCH (09:18)
[2022-11-25] MEDS: CARVEDILOL 12.5 MG TABLET PO SCH ×2 (09:18→17:29)
[2022-11-25] MEDS: LEVOTHYROXINE SODIUM 50 MCG TABLET PO SCH (11:14)
[2022-11-25] MEDS: INSULIN REGULAR, HUMAN 100 UNIT/ML 3 ML VIAL SQ PRN ×2 (11:52→17:34)
[2022-11-25 12:00] VITALS: BP 122/74
[2022-11-25 16:00] VITALS: BP 141/70
[2022-11-25] MEDS ORDERED: FERROUS SULFATE (325 MG) 325 MG/TAB TABLET PO SCH (17:00)
--- NOTE | 2022-11-25 18:43 | NUR ---
RN closing notes PATIENT IN BED, ALERT AND ORIENTED X4. AFEBRILE AND NOT IN ANY FORM OF ACUTE DISTRESS. ON RA. ON TELE MONITORING. WITH IV ACCESS ON PABLO 20G-SL. WITH LIM CATHETER, DRAINING WELL WITH YELLOW URINE OUTPUT, NO HEMATURIA OR SEDIMENTS NOTED WITH APPROX 800 URINE OUTPUT DURING THE SHIFT. MONITORED FOR ANY S/SX. OF HYPO/HYPERGLYCEMIA. SAFETY MEASURES IN PLACE. KEPT BED IN LOCKED AND IN LOW POSITION. SIDE RAILS UP X2. ADVISED TO USE THE CALL LIGHT WHEN IN NEED OF ASSISTANCE. ALL NURSING NEEDS ATTENDED. ENDORSED TO INCOMING SHIFT FOR CONTINUITY OF CARE.
--- NOTE | 2022-11-25 19:30 | NUR ---
INFORMATICS ANALYST OPENING NOTES - RECEIVED PATIENT AWAKE IN BED, FAMILY IN ROOM. A/O X4. BREATHING EVEN AND NON-LABORED ON ROOM AIR. NOT IN APPARENT DISTRESS. DENIES PAIN/SOB/ AT THIS TIME. ON TELE MONITOR READING SINUS RHYTHM WITH PAC AT 80 BPM. HAS LEFT ANTECUBITAL IV ACCESS AND SALINE LOCKED. NO S/S OF INFILTRATION NOTED. HAS INDWELLING LIM CATHETER DRAINING CLEAR YELLOW URINE TO BAG BY GRAVITY. SAFETY PRECAUTIONS IN PLACE: BED LOCKED AND IN LOW POSITION, SIDE RAILS UP X2, CALL LIGHT WITHIN REACH. WILL CONTINUE PLAN OF CARE.
--- NOTE | 2022-11-25 20:39 | NUR ---
HAS MILD AND MODERATE ISS. PER DR. NOEL, CONTINUE MODERATE. NOTED AND CARRIED OUT.
[2022-11-25] MEDS: SIMVASTATIN 20 MG TABLET PO SCH (21:26)
[2022-11-25] MEDS: *INSULIN REGULAR(HUMULIN R)HUM 100 UNIT/ML VIAL SQ PRN (21:37)
[2022-11-26] VITALS (7 sets, daily range): BP systolic 108–155; BP diastolic 61–86
[2022-11-26] MEDS: FUROSEMIDE 40 MG/4 ML VIAL IV SCH ×3 (01:57→16:30)
--- NOTE | 2022-11-26 07:08 | NUR ---
METAL PICKLING EQUIPMENT OPERATOR CLOSING NOTES - PATIENT SLEEPING, EASY TO AROUSE. NO ACUTE DISTRESS THROUGHOUT THE NIGHT. NO SOB OR NOTED. NO C/O PAIN OR DISCOMFORT AT THIS TIME. AFEBRILE. ON TELE MONITOR READING SINUS RHYTHM WITH PAC AT 76 BPM. LEFT ANTECUBITAL IV ACCESS INTACT, PATENT AND FLUSHING. OUTPUT OF CLEAR YELLOW URINE NOTED. NO SEDIMENTS OR HEMATURIA. ALL DUE MEDS GIVEN AND NEEDS ATTENDED. BLOOD SUGAR MONITORED PER MD ORDER. SAFETY PRECAUTIONS MAINTAINED. WILL ENDORSE TO NEXT SHIFT FOR YUE.
[2022-11-26 07:18] LABS: BASOPHILS % (AUTO) 0.9 % (0.0-2.0); CALCIUM, SERUM 8.6 mg/dL (8.5-10.1); CREATININE 1.2 mg/dL (0.6-1.3); EOSINOPHILS % (AUTO) 3.2 % (0.0-6.0); HEMATOCRIT 27 % (33-45); HEMOGLOBIN 8.7 g/dL (11.5-14.8); LYMPHOCYTES # (AUTO) 0.9 K/uL (0.8-4.8); LYMPHOCYTES % (AUTO) 20.7 % (20.0-44.0); MEAN CORPUSCULAR HGB CONC 33 g/dl (31.0-36.0); MEAN CORPUSCULAR VOLUME 81 fL (82-100); MONOCYTES # (AUTO) 0.4 K/uL (0.1-1.30); MONOCYTES % (AUTO) 9.7 % (2.0-12.0); NEUTROPHILS # (AUTO) 2.8 K/uL (1.8-8.9); NEUTROPHILS % (AUTO) 65.5 % (43.0-81.0); PLATELET COUNT (AUTO) 226 K/uL (150-450); POTASSIUM 4.7 mmol/L (3.5-5.1); WHITE BLOOD COUNT (AUTO) 4.3 K/uL (4.3-11.0)
[2022-11-26] MEDS: BLOOD SUGAR DIAGNOSTIC 1 EACH STRIP VI SCH ×4 (07:40→21:11)
--- NOTE | 2022-11-26 07:54 | NUR ---
CAUSTICS LOADER OPENING NOTE PATIENT IN BED, ASLEEP BUT EASY TO AROUSE AND RESPONSIVE. ALERT AND ORIENTED X4. AFEBRILE AND NOT IN ANY FORM OF ACUTE DISTRESS. ON ROOM AIR, TOLERATING WELL, NOT IN DISTRESS, ON TELE MONITORING SR HR 75. WITH IV ACCESS ON PABLO 20G-SL, PATENT AND INTACT, FLUSHES WELL. WITH INTACT LIM CATHETER, DRAINING WELL WITH YELLOW URINE OUTPUT, NO HEMATURIA OR SEDIMENTS NOTED. SAFETY MEASURES IN PLACE. KEPT BED IN LOCKED AND IN LOW POSITION. SIDE RAILS UP X2. ADVISED TO USE THE CALL LIGHT WHEN IN NEED OF ASSISTANCE.PLAN OF CARE CONTINUE.
[2022-11-26] MEDS: ENOXAPARIN SODIUM 40 MG/0.4 ML DISP.SYRIN SQ SCH (08:02)
[2022-11-26] MEDS: LINAGLIPTIN 5 MG TABLET PO SCH (08:27)
[2022-11-26] MEDS: METFORMIN 500 MG TABLET PO SCH ×2 (08:27→17:00)
[2022-11-26] MEDS: FERROUS SULFATE (325 MG) 325 MG/TAB TABLET PO SCH ×2 (08:29→16:19)
[2022-11-26] MEDS: CARVEDILOL 12.5 MG TABLET PO SCH ×2 (08:29→16:42)
[2022-11-26] MEDS: POTASSIUM CHLORIDE 20 MEQ TAB.PRT.SR PO SCH (08:29)
[2022-11-26] MEDS: LEVOTHYROXINE SODIUM 50 MCG TABLET PO SCH (08:29)
[2022-11-26] MEDS: LISINOPRIL (20MG) 20 MG TABLET PO SCH (08:29)
[2022-11-26] MEDS: ASPIRIN 81 MG TAB.CHEW PO SCH (08:38)
--- NOTE | 2022-11-26 10:12 | NUR ---
DR. NOEL AT BEDSIDE ASKING ABOUT WHEN THE US GUIDED THORACENTESIS AND CT ANGIOGRAM WILL BE DONE, CALLED SERVICER COIN MACHINES AND ULTRASOUND DEPT, PER SERVICER COIN MACHINES AND ULTRASOUND THEY WILL DO IT [place]. 11/27/22, CHARGE NURSE SOON AWARE, PLAN OF CARE CONTINUE.
--- NOTE | 2022-11-26 13:42 | NUR ---
sent a message to Dr. Dillon, Radiologist cotton header. Haven't received any response. Informed the RN, Abby Leonard. Thoracentesis will be done tomorrow.
[2022-11-26] MEDS: INSULIN REGULAR, HUMAN 100 UNIT/ML 3 ML VIAL SQ PRN (16:54)
--- NOTE | 2022-11-26 18:30 | NUR ---
FLOUR DISTRIBUTOR CLOSING NOTE PATIENT IN BED AWAKE, FMILY AT BEDSIDE, ALERT AND ORIENTED X4. AFEBRILE AND NOT IN ANY FORM OF ACUTE DISTRESS. ON ROOM AIR, TOLERATING WELL, NOT IN DISTRESS, ON TELE MONITORING SR. WITH IV ACCESS ON LEFT AC 20G-SL, PATENT AND INTACT, FLUSHES WELL. WITH INTACT LIM CATHETER, DRAINING WELL WITH YELLOW URINE OUTPUT, NO HEMATURIA OR SEDIMENTS NOTED. SAFETY MEASURES IN PLACE. KEPT BED IN LOCKED AND IN LOW POSITION. SIDE RAILS UP X2. ADVISED TO USE THE CALL LIGHT WHEN IN NEED OF ASSISTANCE.PLAN OF CARE CONTINUE. WILL ENDORSE TO NIGHT NURSE FOR YUE.
--- NOTE | 2022-11-26 19:30 | NUR ---
DOCK SUPERINTENDENT OPENING NOTE RECEIVED PATIENT IN BED AWAKE, ALERT AND ORIENTED X4. AFEBRILE AND NOT IN ANY FORM OF ACUTE DISTRESS. ON ROOM AIR, TOLERATING WELL, NOT IN DISTRESS, ON TELE MONITORING SR. WITH IV ACCESS ON LEFT AC 20G-SL, PATENT AND INTACT, FLUSHES WELL. WITH LIM CATHETER, DRAINING WELL WITH YELLOW URINE OUTPUT, NO HEMATURIA OR SEDIMENTS NOTED. SAFETY MEASURES IN PLACE. KEPT BED IN LOCKED AND IN LOW POSITION. SIDE RAILS UP X2. CALL LIGHT WITHIN REACH. WILL CONTINUE TO MONITOR THROUGHOUT THE SHIFT.
[2022-11-26] MEDS: SIMVASTATIN 20 MG TABLET PO SCH (21:11)
[2022-11-26] MEDS: *INSULIN REGULAR(HUMULIN R)HUM 100 UNIT/ML VIAL SQ PRN (21:28)
[2022-11-27] VITALS: BP 127/73
[2022-11-27] MEDS: FUROSEMIDE 40 MG/4 ML VIAL IV SCH ×3 (01:54→16:32)
[2022-11-27 04:00] VITALS: BP 133/83
--- NOTE | 2022-11-27 06:46 | NUR ---
CONSTRUCTION TRADES CONTRACTOR CLOSING NOTE PATIENT IN BED SLEEPING BUT EASILY AROUSABLE TO TOUCH AND VOICE, ALERT AND ORIENTED X4. AFEBRILE AND NOT IN ANY FORM OF ACUTE DISTRESS. ON ROOM AIR, TOLERATING WELL, NOT IN DISTRESS, ON TELE MONITORING SR AT 81. WITH IV ACCESS ON LEFT AC 20G-SL, PATENT AND INTACT, FLUSHES WELL. WITH INTACT LIM CATHETER, DRAINING WELL WITH YELLOW URINE OUTPUT, NO HEMATURIA OR SEDIMENTS NOTED. ALL DUE MEDS GIVEN, KEPT DRY AND CLEAN, SAFETY MEASURES IN PLACE. KEPT BED IN LOCKED AND IN LOW POSITION. SIDE RAILS UP X2, CALL LIGHT WITHIN REACH. WILL ENDORSE TO AM SHIFT NURSE FOR CONTINUITY OF CARE.
--- NOTE | 2022-11-27 07:32 | NUR ---
CAGE LOADER OPENING NOTE PATIENT IN BED SLEEPING BUT EASILY AROUSABLE TO TOUCH AND VOICE, ALERT AND ORIENTED X4. AFEBRILE AND NOT IN ANY FORM OF ACUTE DISTRESS. ON ROOM AIR, TOLERATING WELL, NOT IN DISTRESS, ON TELE MONITORING SR AT 81. WITH IV ACCESS ON LEFT AC 20G-SL, PATENT AND INTACT, FLUSHES WELL. ON TELE MONITOR WITH SR HR 75. WITH INTACT LIM CATHETER, DRAINING WELL WITH YELLOW URINE OUTPUT, NO HEMATURIA OR SEDIMENTS NOTED. ALL DUE MEDS GIVEN, KEPT DRY AND CLEAN, SAFETY MEASURES IN PLACE. KEPT BED IN LOCKED AND IN LOW POSITION. SIDE RAILS UP X2, CALL LIGHT WITHIN REACH. PLAN OF CARE CONTINUE.
[2022-11-27] MEDS: BLOOD SUGAR DIAGNOSTIC 1 EACH STRIP VI SCH ×4 (07:38→22:36)
[2022-11-27 08:00] VITALS: BP 158/92
[2022-11-27] MEDS: POTASSIUM CHLORIDE 20 MEQ TAB.PRT.SR PO SCH (08:06)
[2022-11-27] MEDS: ASPIRIN 81 MG TAB.CHEW PO SCH (08:06)
[2022-11-27] MEDS: ENOXAPARIN SODIUM 40 MG/0.4 ML DISP.SYRIN SQ SCH (08:06)
[2022-11-27] MEDS: METFORMIN 500 MG TABLET PO SCH ×2 (08:06→17:01)
[2022-11-27] MEDS: LINAGLIPTIN 5 MG TABLET PO SCH (08:07)
[2022-11-27] MEDS: LEVOTHYROXINE SODIUM 50 MCG TABLET PO SCH (08:07)
[2022-11-27] MEDS: FERROUS SULFATE (325 MG) 325 MG/TAB TABLET PO SCH ×2 (08:07→16:15)
[2022-11-27] MEDS: CARVEDILOL 12.5 MG TABLET PO SCH ×2 (08:10→16:16)
[2022-11-27] MEDS: LISINOPRIL (20MG) 20 MG TABLET PO SCH (08:11)
--- NOTE | 2022-11-27 10:30 | NUR ---
CALLED CT AND FOLLOW UP REGARDING THE CTA, PER CT PERSONNEL LIANNA WILL CALL ME IN COUPLE OF SECONDS TO LET ME KNOW WHAT TIME THE CTA WILL BE DONE.
--- NOTE | 2022-11-27 10:55 | NUR ---
CALLED CT TO FOLLOW UP CTA PER CT DEPARTMENT THEY WILL DO IT IN 1 HOUR. PLAN OF CARE CONTINUE.
--- NOTE | 2022-11-27 11:10 | NUR ---
US GUIDED ULTRASOUND OF RIGHT PLEURAL SPACE DONE BY DR. VILLAFUERTE, OUTPUT 1200ML TOMI COLORED PLEURAL SPACE, SENT TO THE LAB FOR PATHOLOGY, STAT CHEST XRAY DONE. PLAN OF CARE CONTINUE.
[2022-11-27 12:00] VITALS: BP 110/49
--- NOTE | 2022-11-27 14:00 | NUR ---
CALLED CT AND FOLLOW UP WITH CTA PER CT PERSONNEL THEY'RE STILL DOING OTHER PATIENT AND THEY WILL GET THE PATIENT ONCE ITS AVAILABLE.
--- NOTE | 2022-11-27 15:30 | NUR ---
CALLED CT TO FOLLOW UP CTA PER CT PERSONNEL THEY'RE STILL BUSY WITH OTHER PATIENT, INFORMED CHARGE NURSE.
[2022-11-27 16:00] VITALS: BP 140/81
[2022-11-27] MEDS: INSULIN REGULAR, HUMAN 100 UNIT/ML 3 ML VIAL SQ PRN (16:57)
--- NOTE | 2022-11-27 18:42 | NUR ---
MMD UNIT TEACHER CLOSING NOTE PATIENT IN BED SLEEPING BUT EASILY AROUSABLE TO TOUCH AND VOICE, ALERT AND ORIENTED X4. AFEBRILE AND NOT IN ANY FORM OF ACUTE DISTRESS. ON ROOM AIR, TOLERATING WELL, NOT IN DISTRESS, ON TELE MONITORING SR HR 78, WITH IV ACCESS ON LEFT AC 20G-SL AND RIGHT AC 18G SL, PATENT AND INTACT, FLUSHES WELL. WITH INTACT LIM CATHETER, DRAINING WELL WITH YELLOW URINE OUTPUT, NO HEMATURIA OR SEDIMENTS NOTED. KEPT DRY AND CLEAN, SAFETY MEASURES IN PLACE. KEPT BED IN LOCKED AND IN LOW POSITION. SIDE RAILS UP X2, CALL LIGHT WITHIN REACH. WILL ENDORSE TO NIGHT NURSE FOR YUE.
--- NOTE | 2022-11-27 19:30 | NUR ---
LEATHER TANNER OPENING NOTE RECEIVED PATIENT IN BED AWAKE, ALERT AND ORIENTED X4. AFEBRILE AND NOT IN ANY FORM OF ACUTE DISTRESS. ON ROOM AIR, TOLERATING WELL, NOT IN DISTRESS, ON TELE MONITORING SR. WITH IV ACCESS ON LEFT AC 20G-SL AND RAC#18G, PATENT AND INTACT, FLUSHES WELL. WITH LIM CATHETER, DRAINING WELL WITH YELLOW URINE OUTPUT, NO HEMATURIA OR SEDIMENTS NOTED. SAFETY MEASURES IN PLACE. KEPT BED IN LOCKED AND IN LOW POSITION. SIDE RAILS UP X2. CALL LIGHT WITHIN REACH. WILL CONTINUE TO MONITOR THROUGHOUT THE SHIFT.
[2022-11-27 20:00] VITALS: BP 150/81
--- NOTE | 2022-11-27 21:00 | NUR ---
RN NOTE CALLED CT TO FOLLOW UP CTA X2, NOBODY ANSWERED PHONE CALL. CN MADE AWARE.
[2022-11-27] MEDS: SIMVASTATIN 20 MG TABLET PO SCH (22:36)
[2022-11-27] MEDS: *INSULIN REGULAR(HUMULIN R)HUM 100 UNIT/ML VIAL SQ PRN (22:53)
[2022-11-28] VITALS: BP 137/70
[2022-11-28] MEDS: FUROSEMIDE 40 MG/4 ML VIAL IV SCH ×3 (01:51→16:35)
[2022-11-28 04:00] VITALS: BP 152/81
--- NOTE | 2022-11-28 06:54 | NUR ---
ICE SCRAPER CLOSING NOTE PATIENT IN BED SLEEPING BUT EASILY AROUSABLE TO TOUCH AND VOICE, ALERT AND ORIENTED X4. AFEBRILE AND NOT IN ANY FORM OF ACUTE DISTRESS. ON NC AT 2LPM, TOLERATING WELL, NOT IN DISTRESS, ON TELE MONITORING SR AT 78. WITH IV ACCESS ON LEFT AC 20G-SL AND RAC #18G, PATENT AND INTACT, FLUSHES WELL. WITH INTACT LIM CATHETER, DRAINING WELL WITH YELLOW URINE OUTPUT, NO HEMATURIA OR SEDIMENTS NOTED. ALL DUE MEDS GIVEN, KEPT DRY AND CLEAN, SAFETY MEASURES IN PLACE. KEPT BED IN LOCKED AND IN LOW POSITION. SIDE RAILS UP X2, CALL LIGHT WITHIN REACH. WILL ENDORSE TO AM SHIFT NURSE FOR CONTINUITY OF CARE.
[2022-11-28] MEDS: BLOOD SUGAR DIAGNOSTIC 1 EACH STRIP VI SCH ×4 (07:39→21:53)
--- NOTE | 2022-11-28 07:53 | NUR ---
FACILITIES MAINTENANCE WORKER OPENING NOTE PATIENT IN BED AWAKE, ALERT AND ORIENTED X4. AFEBRILE AND NOT IN ANY FORM OF ACUTE DISTRESS. ON ROOM AIR, TOLERATING WELL, NOT IN DISTRESS, ON TELE MONITORING SR 76. WITH IV ACCESS ON LEFT AC 20G AND R AC #18, PATENT AND INTACT. ON TELE MONITOR WITH SR HR 76. WITH INTACT LIM CATHETER, DRAINING WELL WITH YELLOW URINE OUTPUT, NO HEMATURIA OR SEDIMENTS NOTED. SAFETY MEASURES IN PLACE. KEPT BED IN LOCKED AND IN LOW POSITION. SIDE RAILS UP X2, CALL LIGHT WITHIN REACH. PLAN OF CARE CONTINUE. Addendum: 11/28/22 at 1549 by NIKKIE JOE RN WEIGHT= 184 LBS
[2022-11-28 08:00] VITALS: BP 146/73
[2022-11-28] MEDS: ASPIRIN 81 MG TAB.CHEW PO SCH (08:25)
[2022-11-28] MEDS: ENOXAPARIN SODIUM 40 MG/0.4 ML DISP.SYRIN SQ SCH (08:26)
[2022-11-28] MEDS: METFORMIN 500 MG TABLET PO SCH (08:36)
[2022-11-28] MEDS: POTASSIUM CHLORIDE 20 MEQ TAB.PRT.SR PO SCH (08:36)
[2022-11-28] MEDS: LEVOTHYROXINE SODIUM 50 MCG TABLET PO SCH (08:36)
[2022-11-28] MEDS: FERROUS SULFATE (325 MG) 325 MG/TAB TABLET PO SCH ×2 (08:36→16:11)
[2022-11-28] MEDS: CARVEDILOL 12.5 MG TABLET PO SCH ×2 (08:37→16:12)
[2022-11-28] MEDS: LISINOPRIL (20MG) 20 MG TABLET PO SCH (08:37)
--- NOTE | 2022-11-28 08:40 | NUR ---
DR. NOEL AT THE BEDSIDE, INFORMED CTCA IS NOT DONE DUE TO WRONG ORDER, BUFFING WHEEL INSPECTOR NURSE AND XRAY DEPARTMENT INFORMED THE CTCA ORDER, CONSENT IS OBTAINED, AWAITING FOR XRAY TO BLOWER MECHANIC PATIENT.
[2022-11-28] MEDS: LINAGLIPTIN 5 MG TABLET PO SCH (08:49)
[2022-11-28] MEDS ORDERED: METOLAZONE 2.5 MG TABLET PO ONE (09:00)
--- NOTE | 2022-11-28 10:29 | NUR ---
CALLED DR. NOEL TO CLARIFY OF THE CTCA, PER DR. NOEL WITH CALCIUM, INFORMED MOTORBIKE COURIER
[2022-11-28] MEDS ORDERED: IOHEXOL-350 100 ML VIAL IV ONE (10:54)
[2022-11-28] MEDS ORDERED: CT SWABBABLE VALVE TRANS SET 1 EA INFUS.SET MC ONE (10:54)
[2022-11-28] MEDS ORDERED: IV NS 0.9% 250 ML IV ONE (10:54)
--- NOTE | 2022-11-28 11:08 | NUR ---
PATIENT WENT TO NIPPLE THREADER DEPARTMENT FOR CTCA
[2022-11-28] MEDS: METOPROLOL TARTRATE INJ 5 MG/5 ML AMPUL IVP PRN ×4 (11:20→11:35)
[2022-11-28] MEDS ORDERED: METOPROLOL TARTRATE INJ 5 MG/5 ML AMPUL ONE (11:22)
[2022-11-28] MEDS ORDERED: NITROGLYCERIN 0.4 MG/TAB BOTTLE SL ONE (11:30)
--- NOTE | 2022-11-28 11:39 | NUR ---
PROCEDURE WELL TOLERATED BY THE PT. PT IS AAOX4, NOT IN RESPIRATORY DISTRESS, V/S STABLE, KEPT RESTED AND COMFORTABLE. REPORT GIVEN TO MELISSA CHAVARRIA FOR YUE.
--- NOTE | 2022-11-28 11:50 | NUR ---
PATIENT BACK FROM CTCA, PATIENT STABLE, PLAN OF CARE CONTINUE.
[2022-11-28 12:00] VITALS: BP 144/77
--- NOTE | 2022-11-28 12:30 | NUR ---
INFORMED DR. NOEL OF THE INSTRUCTIONS OF DO NOT TAKE METFORMIN FOR 48 HOURS AFTER CTCA, WITH ORDER TO STOP METFORMIN, NOTED AND CARRIED OUT, INFORMED PATIENT AND EDUCATE, PATIENT CONFIRMED UNDERSTANDING. PLAN OF CARE CONTINUE.
[2022-11-28] MEDS: INSULIN REGULAR, HUMAN 100 UNIT/ML 3 ML VIAL SQ PRN (13:11)
--- NOTE | 2022-11-28 14:29 | NUR ---
INFORMED DR. NOEL OF THE CTCA RESULT, AWAITING FOR ORDERS.
--- NOTE | 2022-11-28 14:50 | NUR ---
RECEIVED NEW ORDER FROM DR. NOEL TO CHANGED PATIENT STATUS FROM TELEMETRY TO MED SURG, NOTED AND CARRIED OUT, PLAN OF CARE CONTINUE.
[2022-11-28 16:00] VITALS: BP 136/73
--- NOTE | 2022-11-28 18:11 | NUR ---
RN CLOSING NOTE PATIENT IN BED AWAKE, FAMILY AT BEDSIDE, AFEBRILE AND NOT IN ANY FORM OF ACUTE DISTRESS. ON ROOM AIR, TOLERATING WELL, NOT IN DISTRESS, DENIES ANY PAIN. WITH IV ACCESS ON LEFT AC 20G AND R AC #18, PATENT AND INTACT, FLUSHES WELL. WITH INTACT LIM CATHETER, DRAINING WELL WITH YELLOW URINE OUTPUT, NO HEMATURIA OR SEDIMENTS NOTED. SAFETY MEASURES IN PLACE. KEPT BED IN LOCKED AND IN LOW POSITION. SIDE RAILS UP X2, CALL LIGHT WITHIN REACH. WILL ENDORSE TO NIGHT NURSE FOR YUE.
--- NOTE | 2022-11-28 19:30 | NUR ---
MS RN OPENING NOTE RECEIVED PATIENT IN BED AWAKE, ALERT AND ORIENTED X4. AFEBRILE AND NOT IN ANY FORM OF ACUTE DISTRESS. ON ROOM AIR, TOLERATING WELL, NOT IN DISTRESS, WITH IV ACCESS ON LEFT AC 20G-SL AND RAC#18G, PATENT AND INTACT, FLUSHES WELL. WITH LIM CATHETER, DRAINING WELL WITH YELLOW URINE OUTPUT, NO HEMATURIA OR SEDIMENTS NOTED. SAFETY MEASURES IN PLACE. KEPT BED IN LOCKED AND IN LOW POSITION. SIDE RAILS UP X2. CALL LIGHT WITHIN REACH. WILL CONTINUE TO MONITOR THROUGHOUT THE SHIFT.
--- NOTE | 2022-11-28 20:38 | NUR ---
RN NOTE NOTED PT DESATING AT 89%, PLACED PT ON NC AT 2LPM, PT TOLERATING WELL SATING 95%, WILL CONT TO MONITOR.
[2022-11-28] MEDS: SIMVASTATIN 20 MG TABLET PO SCH (21:53)
[2022-11-28] MEDS: *INSULIN REGULAR(HUMULIN R)HUM 100 UNIT/ML VIAL SQ PRN (21:54)
[2022-11-29] MEDS: FUROSEMIDE 40 MG/4 ML VIAL IV SCH ×2 (01:29→10:16)
[2022-11-29 04:00] VITALS: BP 156/79
[2022-11-29 07:35] LABS: CALCIUM, SERUM 8.7 mg/dL (8.5-10.1); CREATININE 1.1 mg/dL (0.6-1.3); POTASSIUM 3.7 mmol/L (3.5-5.1)
--- NOTE | 2022-11-29 07:40 | NUR ---
MS RN OPENING NOTE RECEIVED PATIENT IN BED AWAKE, ALERT AND ORIENTED X4. AFEBRILE AND NOT IN ANY FORM OF ACUTE DISTRESS. ON ROOM AIR, TOLERATING WELL, NOT IN DISTRESS, WITH IV ACCESS ON LEFT AC 20G-SL AND RAC#18G, PATENT AND INTACT, FLUSHES WELL. WITH LIM CATHETER, DRAINING WELL WITH YELLOW URINE OUTPUT, NO HEMATURIA OR SEDIMENTS NOTED. ALL SAFETY MEASURES IN PLACE. KEPT BED IN LOCKED AND IN LOW POSITION. SIDE RAILS UP X2. CALL LIGHT WITHIN REACH. BED ALARM ON
[2022-11-29] MEDS: BLOOD SUGAR DIAGNOSTIC 1 EACH STRIP VI SCH (07:55)
[2022-11-29 08:00] VITALS: BP 137/64
[2022-11-29] MEDS: POTASSIUM CHLORIDE 20 MEQ TAB.PRT.SR PO SCH (08:22)
[2022-11-29] MEDS: ASPIRIN 81 MG TAB.CHEW PO SCH (08:22)
[2022-11-29] MEDS: FERROUS SULFATE (325 MG) 325 MG/TAB TABLET PO SCH (08:22)
[2022-11-29] MEDS: ENOXAPARIN SODIUM 40 MG/0.4 ML DISP.SYRIN SQ SCH (08:23)
[2022-11-29] MEDS: LEVOTHYROXINE SODIUM 50 MCG TABLET PO SCH (08:23)
[2022-11-29] MEDS: LINAGLIPTIN 5 MG TABLET PO SCH (08:23)
[2022-11-29] MEDS ORDERED: SPIRONOLACTONE 25 MG TABLET PO SCH (09:00)
[2022-11-29] MEDS ORDERED: AMLODIPINE BESYLATE 5 MG TABLET PO SCH (09:00)
[2022-11-29] MEDS ORDERED: LEVOFLOXACIN (250MG) 250 MG TABLET PO SCH (09:00)
[2022-11-29] MEDS ORDERED: CARV12.52 PO (09:06)
[2022-11-29] MEDS ORDERED: LEVO250T59 PO (09:07)
[2022-11-29] MEDS ORDERED: SPIR25TA6 PO (09:07)
[2022-11-29] MEDS ORDERED: LISI20TA30 PO (09:07)
[2022-11-29] MEDS ORDERED: AMLO5TAB4 PO (09:08)
[2022-11-29] MEDS: CARVEDILOL 12.5 MG TABLET PO SCH (10:15)
[2022-11-29 10:16] VITALS: BP 137/64
[2022-11-29] MEDS: LISINOPRIL (20MG) 20 MG TABLET PO SCH (10:16)
--- NOTE | 2022-11-29 12:38 | NUR ---
ENAMEL SPRAYER NOTE PT LEFT IN STABLE CONDITION. WENT OVER DISCHARGE INSTRUCTIONS WITH PT. PT VERBALIZED UNDERSTANDING AND SIGNED PAPERWORK. REMOVED 2 IV SITES AND LIM CATHETHER. ESCORTED OUT BY WHEELCHAIR ACCOMPANIED BY FAMILY MEMBER. PT DISCHARGED WITH ALL PATIENT BELONGINGS
--- NOTE | 2022-11-29 13:13 | NUR ---
rn note pt family member returned to hospital asking about pt money. went to [employer] and picked up pt rich. counted money with Tamie TORRES and pt family member present. all money is there. pt asked about credit card and wallet. pt family member called other family member credit card, wallet is with other family members
== END 2022-11-29 13:21 | disposition home or self-care (01) | DRG 291 ==
LOC: ER 13:48 → TELE1 21:31 → MEDSG1 11-28 16:51
PROVIDERS: ADMIT Internal Medicine; ATTEND Internal Medicine
PROC: 0W993ZX Drainage of Right Pleural Cavity, Percutaneous Approach, Diagnostic (ICD-10-PCS; principal; 2022-11-27)
DX: I13.0 Hypertensive heart and chronic kidney disease with heart failure and stage 1 through stage 4 chronic kidney disease, or unspecified chronic kidney disease (principal); I50.43 Acute on chronic combined systolic (congestive) and diastolic (congestive) heart failure; J15.9 Unspecified bacterial pneumonia; J90 Pleural effusion, not elsewhere classified; J98.11 Atelectasis; E03.9 Hypothyroidism, unspecified; I25.10 Atherosclerotic heart disease of native coronary artery without angina pectoris; N18.9 Chronic kidney disease, unspecified; Z20.822 Contact with and (suspected) exposure to COVID-19; E11.22 Type 2 diabetes mellitus with diabetic chronic kidney disease; Z79.82 Long term (current) use of aspirin; Z79.51 Long term (current) use of inhaled steroids; Z79.84 Long term (current) use of oral hypoglycemic drugs; Z79.899 Other long term (current) drug therapy; D50.9 Iron deficiency anemia, unspecified
CPT/HCPCS: 36415; 71045-TC; 75574; 80048-TC; 80076-TC; 82728-TC; 82962-TC; 83540-TC; 83880; 84443-TC; 84484-TC; 85025-TC; 85730-TC; 87081-TC; 89051-TC; 97112-TC; 97116-TC; 97530-TC; C9803; G0378; J1650; J1815; J1940; J3490; J7050; Q9967

== ENCOUNTER 2022-12-17 15:49 | Inpatient (IN) | payer OTHER ==
[~2022-12-17] VITALS: Ht 157.5 cm; Wt 63.5 kg
[~2022-12-17 15:49] MED LIST changes: -AMLO-212 PO; +AMLO5TAB4 PO; -AMOX1TAB16 PO; +CARV12.52 PO; +FERR325T24 PO; -FERR325T28 PO; +LEVO250T59 PO; +LISI20TA30 PO; -METO25TA20 PO; +SPIR25TA6 PO
--- NOTE | 2022-12-17 16:52 | NUR ---
PT IN BED 6, A/O X4, BREATHING IS EVEN UNLABORED. C/O DIZZYNESS AND HYPOTENSION. PT'S DAUGHTER SAYS THAT BP MEDS WERE HELD TODAY BECUASE HER BP HAS BEEN LOW. PT WAS DISCHARGED FROM THE HOSPITAL 11/29 ACCORDING TO THE DAUGHTER. PT HAS BEEN CONNECTED TO BP AND PULSE OX MONITORING. BED LOCKED IN LOWEST POSITION IN [place] FOWL[place]. DAUGHTER AT BEDSIDE.
[2022-12-17] MEDS ORDERED: IV NS 0.9% 1,000 ML BAG IV ONE (17:00)
--- NOTE | 2022-12-17 17:16 | NUR ---
BLOOD, CULTURES, AND URINE COLLECTED AND SENT TO LAB
[2022-12-17 17:22] LABS: BASOPHILS % (AUTO) 0.7 % (0.0-2.0); HEMATOCRIT 36 % (33-45); HEMOGLOBIN 11.6 g/dL (11.5-14.8); LYMPHOCYTES # (AUTO) 1.2 K/uL (0.8-4.8); LYMPHOCYTES % (AUTO) 23.2 % (20.0-44.0); MEAN CORPUSCULAR HGB CONC 32 g/dl (31.0-36.0); MEAN CORPUSCULAR VOLUME 79 fL (82-100); MONOCYTES # (AUTO) 0.4 K/uL (0.1-1.30); MONOCYTES % (AUTO) 7.5 % (2.0-12.0); NEUTROPHILS # (AUTO) 3.3 K/uL (1.8-8.9); NEUTROPHILS % (AUTO) 66.6 % (43.0-81.0); PLATELET COUNT (AUTO) 229 K/uL (150-450); RED BLOOD CELL COUNT(AUTO) 4.53 MIL/uL (4.0-5.2)
[2022-12-17 17:24] LABS: BILIRUBIN,URINE NEGATIVE (NEGATIVE); COLOR,URINE YELLOW (YELLOW); LEUKOCYTE ESTERASE ,URINE NEGATIVE (NEGATIVE); NITRITE, URINE NEGATIVE (NEGATIVE); PROTEIN,URINE 2+ mg/dl (NEGATIVE); UGLUCOSE TRACE mg/dL (NEGATIVE); UROBILINOGEN,URINE 0.2 EU/dL (0.2)
[2022-12-17 17:29] LABS: BACTERIA,URINE None seen /HPF (None Seen); MUCUS,URINE Few /LPF (None Seen); WBC,URINE 0-2 /HPF (0-3)
--- NOTE | 2022-12-17 17:38 | NUR ---
BG 227
[2022-12-17 17:39] LABS: CALCIUM, SERUM 9.3 mg/dL (8.5-10.1); CARBON DIOXIDE 31 mmol/L (21-32); CHLORIDE 99 mmol/L (98-107); CREATININE 2.1 mg/dL (0.6-1.3); GLUCOSE 238 mg/dL (74-106); POTASSIUM 5.1 mmol/L (3.5-5.1); SODIUM SERUM 135 mmol/L (136-145); UREA NITROGEN, BLOOD 67 mg/dL (7-18)
[2022-12-17 17:52] LABS: ALANINE AMINOTRANSFERASE 28 U/L (12-78); ALBUMIN 2.9 g/dL (3.4-5.0); ALKALINE PHOSPHATASE 106 U/L (46-116); ASPARTATE AMINOTRANSFERASE 22 U/L (15-37); BILIRUBIN,DIRECT 0.1 mg/dL (0.0-0.2); BILIRUBIN,TOTAL 0.3 mg/dL (0.2-1.0); TOTAL PROTEIN, SERUM 7.1 g/dL (6.4-8.2)
--- NOTE | 2022-12-17 18:30 | NUR ---
MOVE SHEET SUBMITTED.
--- NOTE | 2022-12-17 20:05 | NUR ---
COVID SWAB COLLECTED AND SENT TO LAB.
[2022-12-17] MEDS ORDERED: hydrALAZINE HCL IV 20 MG VIAL ONE (20:31)
[2022-12-17] MEDS ORDERED: hydrALAZINE HCL IV 20 MG VIAL IV ONE (21:00)
--- NOTE | 2022-12-17 22:06 | NUR ---
ACCEPTED BY DR. RESENDIZ AT [facility] AWAITING BED.
--- NOTE | 2022-12-17 22:51 | NUR ---
[facility] REQUESTING DOCTOR NOTE STATING THE PT IS STABLE [facility] FAX # [phone] [facility] FAX# [phone]
--- NOTE | 2022-12-18 01:33 | NUR ---
ADLS DONE; PT AMBULATORY TO RESTROOM WITH STEADY GAIT. ALL NEEDS MET AT THIS TIME
--- NOTE | 2022-12-18 01:33 | NUR ---
PER YARA CM, NO BEDS AVAILABLE UNTIL AFTER 0700
--- NOTE | 2022-12-18 08:31 | NUR ---
CM [phone] DEON
--- NOTE | 2022-12-18 09:14 | NUR ---
PT APPEARS TO BE SLEEPING COMFORTABLY IN BED. BREATHING EVEN AND UNLABORED. VSS. SAFETY PRECAUTIONS IN PLACE.
[2022-12-18 11:00] VITALS: BP 126/69
--- NOTE | 2022-12-18 11:14 | NUR ---
CALLED SLOT MACHINE DEPARTMENT FLOORPERSON FOR [facility]. AND WAS NOTIFIED THAT IF [facility] IS NOT ABLE TO ACCEPT THE PT DUE TO BED CAPACITY. THEY GIVE AUTH FOR THE PT TO STAY HERE. AWAITING A CALL BACK WITH UPDATE
--- NOTE | 2022-12-18 11:25 | NUR ---
DR. HOWARD PRESENTED TO DR. NOEL
--- NOTE | 2022-12-18 11:29 | NUR ---
CALLED NURSING SUP REGARDING PT BED
--- NOTE | 2022-12-18 11:43 | NUR ---
BED GIVEN 327-2
--- NOTE | 2022-12-18 11:55 | NUR ---
REPORT GIVEN TO PRIMITIVO FOR YUE
--- NOTE | 2022-12-18 12:23 | NUR ---
PT TRANSPORTED TO MED SURG FLOOR IN STABLE CONDITION.
--- NOTE | 2022-12-18 13:00 | NUR ---
MS UNDERWRITING ACCOUNT REPRESENTATIVE NOTE At 12:40 hours, patient arrived via gurney from the Emergency Dept. accompanied by ER nurse, Rosa. Patient was able to independently get up off the gurney and walk with steady gait from the gurney to bed 2 of room 327 without any dizziness, light headedness, nor c/o pain. Patient is Telugu speaking without some Yoruba fluency and alert and oriented x 4, on room air, vital signs stable, afebrile. Admitted diagnosis of Acute Kidney Injury with suspected dehydration. Patient has clean, dry, intact, patent, flushed, # 20 gauge peripheral IV catheter saline locked to right antecubital space. Home meds given to med reconciliation nurse in pharmacy with meds to be returned to family. Patient oriented to [address] and room, bed controls and call harrison/light. Safety precautions in place: bed side rails up x 3; bed brakes locked on; bed in lowest position; call bel/light within pt's reach. Will continue to care for and monitor patient per MD's POC.
[2022-12-18] MEDS ORDERED: DEXTROSE 50%-WATER 50 ML DISP.SYRIN IV PRN (13:30)
[2022-12-18] MEDS ORDERED: ACETAMINOPHEN 325 MG TABLET PO PRN (13:30)
[2022-12-18] MEDS ORDERED: ALBUTEROL FS 2.5 MG/3 ML VIAL.NEB NEB PRN (13:30)
[2022-12-18] MEDS ORDERED: *INSULIN REGULAR(HUMULIN R)HUM 100 UNIT/ML VIAL SQ PRN (13:30)
[2022-12-18] MEDS ORDERED: INSULIN REGULAR, HUMAN 100 UNIT/ML 3 ML VIAL SQ PRN (13:30)
[2022-12-18] MEDS ORDERED: AMLODIPINE BESYLATE 5 MG TABLET PO SCH (14:00)
[2022-12-18] MEDS: GLIMEPIRIDE 1 MG TABLET PO SCH (14:06)
[2022-12-18] MEDS ORDERED: AMLODIPINE BESYLATE 5 MG TABLET PO ONE (17:00)
[2022-12-18] MEDS: BLOOD SUGAR DIAGNOSTIC 1 EACH STRIP VI SCH ×2 (17:01→22:49)
[2022-12-18] MEDS: FERROUS SULFATE (325 MG) 325 MG/TAB TABLET PO SCH (17:02)
[2022-12-18] MEDS: CARVEDILOL 12.5 MG TABLET PO SCH (17:04)
--- NOTE | 2022-12-18 18:49 | NUR ---
MS RN CLOSING NOTE (DAYSHIFT) PATIENT AND DAUGHTER OF PATIENT ABLE TO ANSWER ALL ADMISSION ASSESSMENT/MEDICAL HISTORY QUESTIONS. MD ORDERED PATIENT DIABETIC C. CHO. DIET FOR PATIENT AND HOME MEDICATIONS TO TAKE. HOLDING DIURETICS FOR NOW. PATIENT CURRENTLY HAS GOOD APPETITE EATING 100% OF BOTH LUNCH AND DINNER MEALS. SAFETY FROM FALL PRECAUTIONS MAINTAINED. DAUGHTER REPORTED PATIENT HAD THREE FALLS WITHIN LAST 2 MONTHS. NO INJURIES SUSTAINED FROM FALLS. SKIN IS INTACT. HAD ELEVATED BP THIS AFTERNOON, DR NOEL ORDERED REPETE DOSE OF AMLODIPINE 5MG PO WHICH WAS GIVEN ORDERED. VTE RISK OF 2, APPLIED SCDs to BLEto PREVENT BLOOD CLOTS. WILL ENDORSE TO MANAGER VOICE NURSE, TRAVIS, FOR YUE.
[2022-12-18 20:00] VITALS: BP 146/72
--- NOTE | 2022-12-18 20:30 | NUR ---
RN MS OPENING NOTES RECEIVED PATIENT IN BED, A/O X 4 ABLE TO VERBALIZED CONCERNS. ON MODERATE HIGH BACK REST POSITION. ON ROOM AIR SATURATING WELL. AMBULATORY WITH STEADY GAIT. WITH IV ACCESS AT RAC #18G SL PATENT AND INTACT. NO COMPLAIN OF PAIN OR ANY DISCOMFORT AT THIS TIME. WITH ACTIVE BOWEL SOUNDS CONTINENT. KEPT BED ON LOWER LOCKED POSITION KEPT SIDE RAILS UP X 2 ALL THE TIME. KEPT CALL LIGHT WITHIN T REACH. WILL CONTINUE TO MONITOR.
[2022-12-18] MEDS ORDERED: SIMVASTATIN 20 MG TABLET PO SCH (22:00)
--- NOTE | 2022-12-19 06:00 | NUR ---
RN NOTES UPON CHECKING OF BLOOD SUGAR, 77MG/DL. PATIENT IS AWAKE AND RESPONSIVE. NO S/S OF HYPOGLYCEMIA NOTED. 3 CUPS OF APPLE JUICE GIVEN AND WELL TOLERATED BY THE PATIENT.
[2022-12-19] MEDS: BLOOD SUGAR DIAGNOSTIC 1 EACH STRIP VI SCH ×2 (06:21→12:39)
--- NOTE | 2022-12-19 06:31 | NUR ---
RN MS CLOSING NOTES PATIENT IS IN BED, A/O X 4 ABLE TO VERBALIZED CONCERNS. ON MODERATE HIGH BACK REST POSITION. PATIENT IS AMBULATORY WITH STEADY GAIT. PATIENT IS CONTINENT WITH BRP. WITH IV ACCESS AT RAC #18G SL PATENT AND INTACT. ALL DUE MEDICATIONS GIVEN, ALL NEEDS ATTENDED. ENCOURAGE INCREASED ORAL FLUID INTAKE. KEPT BED ON LOWER LOCKED POSITION KEPT SIDE RAILS UP X 2 ALL THE TIME. SAFETY PRECAUTIONS MAINTAINED. KEPT CALL LIGHT WITHIN AT REACH. WILL ENDORSED TO AM SHIFT FOR YUE.
[2022-12-19 07:30] LABS: BASOPHILS % (AUTO) 0.6 % (0.0-2.0); EOSINOPHILS % (AUTO) 2.7 % (0.0-6.0); HEMATOCRIT 35 % (33-45); HEMOGLOBIN 11.3 g/dL (11.5-14.8); LYMPHOCYTES # (AUTO) 1.4 K/uL (0.8-4.8); LYMPHOCYTES % (AUTO) 26.7 % (20.0-44.0); MEAN CORPUSCULAR HGB CONC 32 g/dl (31.0-36.0); MEAN CORPUSCULAR VOLUME 81 fL (82-100); MONOCYTES # (AUTO) 0.4 K/uL (0.1-1.30); MONOCYTES % (AUTO) 8.7 % (2.0-12.0); NEUTROPHILS # (AUTO) 3.2 K/uL (1.8-8.9); NEUTROPHILS % (AUTO) 61.3 % (43.0-81.0); PLATELET COUNT (AUTO) 221 K/uL (150-450); WHITE BLOOD COUNT (AUTO) 5.2 K/uL (4.3-11.0)
--- NOTE | 2022-12-19 07:30 | NUR ---
MS RN OPENING NOTE RECEIVED PATIENT ON BED, RESTING , A/O X4, VERBALLY RESPONSIVE. ON ROOM AIR TOLERATING WELL. NO SOB NOTED. NOT IN DISTRESS. WITH NO C/O PAIN AT THIS TIME. WITH IV ACCESS ON RIGHT ANTECUBITAL #18G, INTACT AND PATENT, SALINE LOCKED. SAFETY MEASURE IN PLACE. BED IN LOW AND LOCKED POSITION, SIDE RAILS UP X2, CALL LIGHT PLACED WITHIN EASY REACH. WILL CONTINUE TO MONITOR PATIENT.
[2022-12-19 08:00] VITALS: BP 154/87
[2022-12-19 08:07] LABS: CALCIUM, SERUM 9.2 mg/dL (8.5-10.1); CARBON DIOXIDE 27 mmol/L (21-32); CHLORIDE 103 mmol/L (98-107); CREATININE 1.4 mg/dL (0.6-1.3); GLUCOSE 145 mg/dL (74-106); POTASSIUM 4.5 mmol/L (3.5-5.1); SODIUM SERUM 137 mmol/L (136-145); UREA NITROGEN, BLOOD 54 mg/dL (7-18)
[2022-12-19] MEDS: GLIMEPIRIDE 1 MG TABLET PO SCH (08:28)
[2022-12-19] MEDS: FERROUS SULFATE (325 MG) 325 MG/TAB TABLET PO SCH (08:29)
[2022-12-19] MEDS: CARVEDILOL 12.5 MG TABLET PO SCH (08:29)
[2022-12-19 08:30] VITALS: BP 154/87
[2022-12-19] MEDS ORDERED: GLIM1TAB PO (08:33)
[2022-12-19] MEDS ORDERED: FURO-145 PO (08:35)
[2022-12-19] MEDS ORDERED: FUROSEMIDE 20 MG TABLET PO SCH (09:00)
[2022-12-19] MEDS ORDERED: LINAGLIPTIN 5 MG TABLET PO SCH (09:00)
[2022-12-19] MEDS ORDERED: ASPIRIN EC 81 MG TABLET.DR PO SCH (09:00)
[2022-12-19] MEDS ORDERED: LISINOPRIL (20MG) 20 MG TABLET PO SCH (09:00)
--- NOTE | 2022-12-19 13:45 | NUR ---
FRONT END ARCHITECT NOTES PATIENT WAS ORDERED FOR DISCHARGE DR. NOEL TO HOME. DISCHARGE AND MEDICATION EDUCATION/INSTRUCTIONS PROVIDED TO THE PATIENT. PATIENT VERBALIZED UNDERSTANDING. REMOVED IV LINE AND NAME WRIST BAND. ASSISTED PATIENT VIA WHEELCHAIR TO THE LOBBY AND LEFT VIA PRIVATE CAR WITH IN STABLE CONDITION. MD AND CHARGE NURSE ARE AWARE OF THE DISCHARGE.
== END 2022-12-19 13:45 | disposition home health service (06) | DRG 640 ==
LOC: ER 16:04 → MED 12-18 12:03
PROVIDERS: ADMIT Internal Medicine; ATTEND Internal Medicine
DX: E86.0 Dehydration (principal); N17.0 Acute kidney failure with tubular necrosis; I50.42 Chronic combined systolic (congestive) and diastolic (congestive) heart failure; I11.0 Hypertensive heart disease with heart failure; E03.9 Hypothyroidism, unspecified; E11.65 Type 2 diabetes mellitus with hyperglycemia; I25.10 Atherosclerotic heart disease of native coronary artery without angina pectoris; Z79.84 Long term (current) use of oral hypoglycemic drugs; D50.9 Iron deficiency anemia, unspecified; Z20.822 Contact with and (suspected) exposure to COVID-19
CPT/HCPCS: 36415; 70450-TC; 71045-TC; 80048-TC; 80076-TC; 81001; 82962-TC; 83605-TC; 84484-TC; 85025-TC; 85730-TC; 87040-TC; 87081-TC; 87086-TC; C9803; G0378; J0360; J1815; J7030

== ENCOUNTER 2023-05-31 11:08 | Inpatient (IN) | payer OTHER ==
[~2023-05-31] VITALS: Ht 152.4 cm; Wt 71.7 kg
[2023-05-31 03:15] VITALS: BP 190/56; TEMP 98; O2SAT 94
[~2023-05-31 11:08] MED LIST changes: -AMLO5TAB4 PO; +FURO-145 PO; -FURO40TA5 PO; +GLIM1TAB PO; -LEVO250T59 PO; -METF-440 PO; -SPIR25TA6 PO
[2023-05-31 12:09] LABS: BASOPHILS # (AUTO) 0.1 K/uL (0.0-0.2); BASOPHILS % (AUTO) 1.2 % (0.0-2.0); EOSINOPHILS # (AUTO) 0.3 K/uL (0.0-0.7); HEMATOCRIT 31 % (33-45); HEMOGLOBIN 10.1 g/dL (11.5-14.8); LYMPHOCYTES # (AUTO) 0.6 K/uL (0.8-4.8); MEAN CORPUSCULAR HEMOGLOBIN 27 PG (26.0-33.0); MEAN CORPUSCULAR HGB CONC 33 g/dl (31.0-36.0); MEAN CORPUSCULAR VOLUME 83 fL (82-100); MONOCYTES # (AUTO) 0.4 K/uL (0.1-1.30); MONOCYTES % (AUTO) 8.3 % (2.0-12.0); NEUTROPHILS % (AUTO) 69.5 % (43.0-81.0); PLATELET COUNT (AUTO) 225 K/uL (150-450); RED BLOOD CELL COUNT(AUTO) 3.71 MIL/uL (4.0-5.2); RED CELL DISTRIBUTION WIDTH 16.8 % (11.5-15.0); WHITE BLOOD COUNT (AUTO) 4.3 K/uL (4.3-11.0)
[2023-05-31 12:35] LABS: CALCIUM, SERUM 8.7 mg/dL (8.5-10.1); CARBON DIOXIDE 21 mmol/L (21-32); CHLORIDE 103 mmol/L (98-107); CREATININE 1.6 mg/dL (0.6-1.3); GLUCOSE 87 mg/dL (74-106); POTASSIUM 5.8 mmol/L (3.5-5.1); SODIUM SERUM 133 mmol/L (136-145); UREA NITROGEN, BLOOD 46 mg/dL (7-18)
[2023-05-31 12:41] LABS: ALANINE AMINOTRANSFERASE 29 U/L (12-78); ALBUMIN 2.2 g/dL (3.4-5.0); ALKALINE PHOSPHATASE 188 U/L (46-116); ASPARTATE AMINOTRANSFERASE 44 U/L (15-37); BILIRUBIN,DIRECT 0.1 mg/dL (0.0-0.2); BILIRUBIN,TOTAL 0.4 mg/dL (0.2-1.0); LIPASE 53 U/L (73-393); TOTAL PROTEIN, SERUM 6.6 g/dL (6.4-8.2)
[2023-05-31 13:13] LABS: PREGNANCY TEST URINE QUAL NEGATIVE (NEGATIVE)
[2023-05-31 13:16] LABS: APPEARANCE,URINE CLEAR (CLEAR); BILIRUBIN,URINE NEGATIVE (NEGATIVE); BLOOD, URINE 2+ Ery/uL (NEGATIVE); COLOR,URINE YELLOW (YELLOW); KETONES,URINE NEGATIVE (NEGATIVE); LEUKOCYTE ESTERASE ,URINE 1+ (NEGATIVE); NITRITE, URINE NEGATIVE (NEGATIVE); PH,URINE 6.5 (5.0-8.0); PROTEIN,URINE 2+ mg/dl (NEGATIVE); UGLUCOSE 1+ mg/dL (NEGATIVE); UROBILINOGEN,URINE 0.2 EU/dL (0.2)
[2023-05-31 13:22] LABS: ADD URINE CULTURE YES; BACTERIA,URINE Rare /HPF (None Seen); SQUAMOUS EPITHELIAL CELL,UR Few /HPF (None Seen)
[2023-05-31] MEDS ORDERED: CARV25TA2 PO (13:51)
[2023-05-31] MEDS ORDERED: HYDR-4077 PO (13:51)
[2023-05-31] MEDS ORDERED: EMPA10TA PO (13:51)
[2023-05-31] MEDS ORDERED: METF-440 PO (13:51)
[2023-05-31] MEDS ORDERED: LISI20TA30 PO (13:51)
[2023-05-31] MEDS ORDERED: SPIR25TA6 PO (13:51)
[2023-05-31] MEDS ORDERED: LINA5TAB PO (13:51)
[2023-05-31] MEDS ORDERED: ASPI-1169 PO (13:51)
[2023-05-31] MEDS ORDERED: BUME2TAB7 PO (13:51)
[2023-05-31] MEDS ORDERED: hydrALAZINE HCL 50 MG TABLET ONE (20:15)
[2023-05-31] MEDS ORDERED: DEXTROSE 50%-WATER 50 ML DISP.SYRIN IV PRN (20:30)
[2023-05-31] MEDS ORDERED: SODIUM POLYSTYRENE SULFONATE 15 G/60 ML BOTTLE PO ONE (21:20)
[2023-05-31] MEDS ORDERED: CEFTRIAXONE 1 G in IV D5W 50 ML IV SCH (22:00)
[2023-06-01] VITALS (8 sets, daily range): BP systolic 106–193; BP diastolic 48–90; TEMP 97.7–98.6; O2SAT 93–96
[2023-06-01] MEDS: AMLODIPINE BESYLATE 5 MG TABLET PO SCH ×2 (00:20→08:22)
[2023-06-01] MEDS ORDERED: CEFTRIAXONE 1GM BAG (ER ONLY) 50 ML IV ONE (00:27)
[2023-06-01] MEDS: BLOOD SUGAR DIAGNOSTIC 1 EACH STRIP VI SCH ×5 (00:29→21:23)
[2023-06-01] MEDS: hydrALAZINE HCL 50 MG TABLET PO SCH ×4 (01:10→16:33)
[2023-06-01] MEDS: FUROSEMIDE 40 MG/4 ML VIAL IV SCH ×3 (01:46→16:33)
[2023-06-01] MEDS ORDERED: SODIUM POLYSTYRENE SULFONATE 15 G/60 ML BOTTLE ONE ×3 (02:23→02:30)
[2023-06-01] MEDS: METOLAZONE 2.5 MG TABLET PO SCH ×2 (02:31→08:22)
[2023-06-01 06:16] LABS: EOSINOPHILS # (AUTO) 0.3 K/uL (0.0-0.7); EOSINOPHILS % (AUTO) 5.6 % (0.0-6.0); HEMATOCRIT 30 % (33-45); HEMOGLOBIN 9.8 g/dL (11.5-14.8); LYMPHOCYTES # (AUTO) 0.8 K/uL (0.8-4.8); LYMPHOCYTES % (AUTO) 15.6 % (20.0-44.0); MEAN CORPUSCULAR HEMOGLOBIN 27 PG (26.0-33.0); MEAN CORPUSCULAR HGB CONC 33 g/dl (31.0-36.0); MEAN CORPUSCULAR VOLUME 82 fL (82-100); MONOCYTES # (AUTO) 0.5 K/uL (0.1-1.30); MONOCYTES % (AUTO) 10.1 % (2.0-12.0); NEUTROPHILS # (AUTO) 3.4 K/uL (1.8-8.9); NEUTROPHILS % (AUTO) 67.7 % (43.0-81.0); PLATELET COUNT (AUTO) 211 K/uL (150-450); RED BLOOD CELL COUNT(AUTO) 3.63 MIL/uL (4.0-5.2); RED CELL DISTRIBUTION WIDTH 16.5 % (11.5-15.0)
[2023-06-01 06:28] LABS: ALANINE AMINOTRANSFERASE 28 U/L (12-78); ALBUMIN 2.3 g/dL (3.4-5.0); ALKALINE PHOSPHATASE 192 U/L (46-116); ASPARTATE AMINOTRANSFERASE 20 U/L (15-37); BILIRUBIN,TOTAL 0.3 mg/dL (0.2-1.0); CALCIUM, SERUM 9.5 mg/dL (8.5-10.1); CARBON DIOXIDE 27 mmol/L (21-32); CHLORIDE 105 mmol/L (98-107); CREATININE 1.7 mg/dL (0.6-1.3); GLUCOSE 120 mg/dL (74-106); POTASSIUM 4.1 mmol/L (3.5-5.1); SODIUM SERUM 138 mmol/L (136-145); TOTAL PROTEIN, SERUM 6.4 g/dL (6.4-8.2); UREA NITROGEN, BLOOD 47 mg/dL (7-18)
[2023-06-01 06:35] LABS: THYROID STIMULATING HORMONE 6.601 uIU/mL (0.358-3.74)
[2023-06-01] MEDS: LINAGLIPTIN 5 MG TABLET PO SCH (08:21)
[2023-06-01] MEDS: ASPIRIN 81 MG TAB.CHEW PO SCH (08:21)
[2023-06-01] MEDS: CARVEDILOL 12.5 MG TABLET PO SCH ×2 (08:22→16:34)
[2023-06-01] MEDS ORDERED: hydrALAZINE HCL 50 MG TABLET PO SCH (09:00)
[2023-06-01] MEDS ORDERED: SPIRONOLACTONE 25 MG TABLET PO SCH (09:00)
[2023-06-01] MEDS ORDERED: METFORMIN 500 MG TABLET PO SCH (09:00)
[2023-06-01] MEDS ORDERED: LISINOPRIL (20MG) 20 MG TABLET PO SCH (09:00)
[2023-06-01] MEDS: INSULIN REGULAR, HUMAN 100 UNIT/ML 3 ML VIAL SQ PRN ×2 (11:24→16:32)
[2023-06-01] MEDS: CEFTRIAXONE 2 G in IV D5W 100 ML IV SCH (12:08)
[2023-06-01] MEDS ORDERED: hydrALAZINE HCL 25 MG TABLET PO SCH ×2 (13:00)
[2023-06-01] MEDS: DOXAZOSIN MESYLATE (1 MG) 1 MG TABLET PO SCH (16:34)
[2023-06-01] MEDS: *INSULIN REGULAR(HUMULIN R)HUM 100 UNIT/ML VIAL SQ PRN (21:24)
[2023-06-02] VITALS (7 sets, daily range): BP systolic 106–160; BP diastolic 48–73; TEMP 97.5–99; O2SAT 92–96
[2023-06-02 07:22] LABS: EOSINOPHILS # (AUTO) 0.2 K/uL (0.0-0.7); EOSINOPHILS % (AUTO) 5.1 % (0.0-6.0); HEMATOCRIT 28 % (33-45); HEMOGLOBIN 9.2 g/dL (11.5-14.8); LYMPHOCYTES # (AUTO) 0.6 K/uL (0.8-4.8); LYMPHOCYTES % (AUTO) 14.3 % (20.0-44.0); MEAN CORPUSCULAR HEMOGLOBIN 27 PG (26.0-33.0); MEAN CORPUSCULAR HGB CONC 33 g/dl (31.0-36.0); MEAN CORPUSCULAR VOLUME 82 fL (82-100); MONOCYTES # (AUTO) 0.4 K/uL (0.1-1.30); NEUTROPHILS # (AUTO) 3.1 K/uL (1.8-8.9); NEUTROPHILS % (AUTO) 69.6 % (43.0-81.0); PLATELET COUNT (AUTO) 199 K/uL (150-450); RED BLOOD CELL COUNT(AUTO) 3.43 MIL/uL (4.0-5.2); RED CELL DISTRIBUTION WIDTH 16.6 % (11.5-15.0); WHITE BLOOD COUNT (AUTO) 4.4 K/uL (4.3-11.0)
[2023-06-02 07:51] LABS: ALANINE AMINOTRANSFERASE 22 U/L (12-78); ALBUMIN 2.2 g/dL (3.4-5.0); ALKALINE PHOSPHATASE 163 U/L (46-116); ASPARTATE AMINOTRANSFERASE 17 U/L (15-37); BILIRUBIN,TOTAL 0.2 mg/dL (0.2-1.0); CALCIUM, SERUM 8.6 mg/dL (8.5-10.1); CARBON DIOXIDE 27 mmol/L (21-32); CHLORIDE 102 mmol/L (98-107); CREATININE 1.9 mg/dL (0.6-1.3); GLUCOSE 117 mg/dL (74-106); MAGNESIUM 1.9 mg/dL (1.8-2.4); NT-PRO BNP > 25000 pg/mL (0-125); PHOSPHORUS 5.4 mg/dL (2.5-4.9); POTASSIUM 3.7 mmol/L (3.5-5.1); SODIUM SERUM 137 mmol/L (136-145); UREA NITROGEN, BLOOD 46 mg/dL (7-18)
[2023-06-02 07:53] LABS: CREATINE KINASE, TOTAL 110 U/L (26-192); THYROID STIMULATING HORMONE 4.779 uIU/mL (0.358-3.74)
[2023-06-02] MEDS: BLOOD SUGAR DIAGNOSTIC 1 EACH STRIP VI SCH ×4 (08:03→21:31)
[2023-06-02] MEDS: FUROSEMIDE 40 MG/4 ML VIAL IV SCH (11:11)
[2023-06-02] MEDS: hydrALAZINE HCL 50 MG TABLET PO SCH ×3 (11:12→17:00)
[2023-06-02] MEDS: ASPIRIN 81 MG TAB.CHEW PO SCH (11:12)
[2023-06-02] MEDS: DOXAZOSIN MESYLATE (1 MG) 1 MG TABLET PO SCH ×2 (11:13→17:00)
[2023-06-02] MEDS: CARVEDILOL 12.5 MG TABLET PO SCH ×2 (11:13→17:00)
[2023-06-02] MEDS: LINAGLIPTIN 5 MG TABLET PO SCH (11:14)
[2023-06-02] MEDS: AMLODIPINE BESYLATE 5 MG TABLET PO SCH (11:14)
[2023-06-02] MEDS: LEVOTHYROXINE SODIUM 25 MCG TABLET PO SCH (11:14)
[2023-06-02] MEDS: METOLAZONE 2.5 MG TABLET PO SCH (11:15)
[2023-06-02] MEDS: CEFTRIAXONE 2 G in IV D5W 100 ML IV SCH (11:15)
[2023-06-02] MEDS: INSULIN REGULAR, HUMAN 100 UNIT/ML 3 ML VIAL SQ PRN ×2 (12:30→18:43)
[2023-06-02] MEDS: *INSULIN REGULAR(HUMULIN R)HUM 100 UNIT/ML VIAL SQ PRN (21:31)
[2023-06-03] VITALS: BP 137/60; TEMP 97.8; O2SAT 94
[2023-06-03 05:00] VITALS: BP 142/61; TEMP 98; O2SAT 93
[2023-06-03] MEDS: INSULIN REGULAR, HUMAN 100 UNIT/ML 3 ML VIAL SQ PRN ×3 (06:51→18:15)
[2023-06-03] MEDS: BLOOD SUGAR DIAGNOSTIC 1 EACH STRIP VI SCH ×3 (06:51→18:15)
[2023-06-03 07:30] VITALS: BP 157/70; TEMP 98.1; O2SAT 90
[2023-06-03] MEDS ORDERED: DOXA1TAB4 PO (07:59)
[2023-06-03] MEDS ORDERED: HYDR-4077 PO (07:59)
[2023-06-03] MEDS ORDERED: AMLO-212 PO (07:59)
[2023-06-03] MEDS: FUROSEMIDE 40 MG/4 ML VIAL IV SCH (09:18)
[2023-06-03] MEDS: hydrALAZINE HCL 50 MG TABLET PO SCH ×3 (09:18→17:00)
[2023-06-03] MEDS: LEVOTHYROXINE SODIUM 25 MCG TABLET PO SCH (09:19)
[2023-06-03] MEDS: LINAGLIPTIN 5 MG TABLET PO SCH (09:19)
[2023-06-03] MEDS: ASPIRIN 81 MG TAB.CHEW PO SCH (09:19)
[2023-06-03] MEDS: CARVEDILOL 12.5 MG TABLET PO SCH ×2 (09:20→17:00)
[2023-06-03] MEDS: AMLODIPINE BESYLATE 5 MG TABLET PO SCH (09:20)
[2023-06-03] MEDS: DOXAZOSIN MESYLATE (1 MG) 1 MG TABLET PO SCH ×2 (09:21→17:00)
[2023-06-03] MEDS: CEFTRIAXONE 2 G in IV D5W 100 ML IV SCH (10:05)
[2023-06-03 11:38] LABS: BASOPHILS % (AUTO) 0.9 % (0.0-2.0); EOSINOPHILS # (AUTO) 0.2 K/uL (0.0-0.7); EOSINOPHILS % (AUTO) 4.8 % (0.0-6.0); HEMATOCRIT 27 % (33-45); HEMOGLOBIN 8.8 g/dL (11.5-14.8); LYMPHOCYTES # (AUTO) 0.6 K/uL (0.8-4.8); MEAN CORPUSCULAR HEMOGLOBIN 27 PG (26.0-33.0); MEAN CORPUSCULAR HGB CONC 33 g/dl (31.0-36.0); MEAN CORPUSCULAR VOLUME 82 fL (82-100); MONOCYTES # (AUTO) 0.4 K/uL (0.1-1.30); MONOCYTES % (AUTO) 8.7 % (2.0-12.0); NEUTROPHILS % (AUTO) 71.6 % (43.0-81.0); PLATELET COUNT (AUTO) 178 K/uL (150-450); RED BLOOD CELL COUNT(AUTO) 3.28 MIL/uL (4.0-5.2); RED CELL DISTRIBUTION WIDTH 16.3 % (11.5-15.0); WHITE BLOOD COUNT (AUTO) 4.2 K/uL (4.3-11.0)
[2023-06-03 11:57] LABS: CARBON DIOXIDE 28 mmol/L (21-32); CHLORIDE 99 mmol/L (98-107); CREATININE 1.6 mg/dL (0.6-1.3); GLUCOSE 210 mg/dL (74-106); POTASSIUM 3.4 mmol/L (3.5-5.1); SODIUM SERUM 135 mmol/L (136-145); UREA NITROGEN, BLOOD 46 mg/dL (7-18)
[2023-06-03] MEDS ORDERED: POTASSIUM CHLORIDE 20 MEQ TAB.PRT.SR PO ONE (14:00)
[2023-06-03 16:00] VITALS: BP 107/91; TEMP 97.5; O2SAT 92
[2023-06-03] MEDS ORDERED: AMOX-430 PO (16:21)
[2023-06-03] MEDS ORDERED: POTA10TA PO (16:24)
[2023-06-03 17:00] VITALS: BP 102/78
[2023-06-04 07:06] LABS: CORTISOL SERUM 11.4 ug/dL (6.2-19.4); PTH, INTACT 55 pg/mL (15-65)
[2023-06-05 08:07] LABS: *SPE A/G RATIO 0.7 (0.7-1.7); *SPE ALBUMIN 2.2 g/dL (2.9-4.4); *SPE ALPHA-1-GLOBULIN 0.3 g/dL (0.0-0.4); *SPE ALPHA-2-GLOBULIN 0.8 g/dL (0.4-1.0); *SPE GLOBULIN, TOTAL 3.1 g/dL (2.2-3.9); *SPE M-SPIKE Not Observed g/dL (Not Observed); *SPE PROTEIN TOTAL 5.3 g/dL (6.0-8.5); *SPEGAMMA GLOBULIN 1.1 g/dL (0.4-1.8)
== END 2023-06-03 18:30 | disposition home or self-care (01) | DRG 291 ==
LOC: ER 11:41 → TELE 21:07 → MED 06-03 09:53
PROVIDERS: ADMIT Internal Medicine; ATTEND Internal Medicine
DX: I13.0 Hypertensive heart and chronic kidney disease with heart failure and stage 1 through stage 4 chronic kidney disease, or unspecified chronic kidney disease (principal); I50.43 Acute on chronic combined systolic (congestive) and diastolic (congestive) heart failure; N17.0 Acute kidney failure with tubular necrosis; N39.0 Urinary tract infection, site not specified; B96.20 Unspecified Escherichia coli [E. coli] as the cause of diseases classified elsewhere; D50.9 Iron deficiency anemia, unspecified; E87.5 Hyperkalemia; E88.09 Other disorders of plasma-protein metabolism, not elsewhere classified; I25.10 Atherosclerotic heart disease of native coronary artery without angina pectoris; I27.20 Pulmonary hypertension, unspecified; Z79.84 Long term (current) use of oral hypoglycemic drugs; Z79.82 Long term (current) use of aspirin; Z20.822 Contact with and (suspected) exposure to COVID-19; N18.9 Chronic kidney disease, unspecified; I42.9 Cardiomyopathy, unspecified
CPT/HCPCS: 36415; 71045-TC; 72192-TC; 80048-TC; 80053-TC; 80076-TC; 81001; 82533; 82550-TC; 82962-TC; 83690-TC; 83735-TC; 83880; 83970; 84100-TC; 84155; 84165; 84443-TC; 84484-TC; 84703-TC; 85025-TC; 87086-TC; 93307-TC; A4223; C9803; G0378; J0696; J1815; J1940; J7030; J7060

== ENCOUNTER 2023-11-14 13:48 | Inpatient (IN) | payer OTHER ==
[~2023-11-14] VITALS: Ht 160 cm; Wt 75.3 kg
[~2023-11-14 13:48] MED LIST changes: -ALBU18HF2 IH; +AMLO-212 PO; +AMOX-430 PO; +ASPI-1169 PO; -Aspirin Ec PO; -CARV12.52 PO; +CARV25TA2 PO; +DOXA1TAB4 PO; +EMPA10TA PO; -FERR325T24 PO; -FURO-145 PO; -GLIM1TAB PO; +HYDR-4077 PO; -LISI20TA30 PO; +POTA10TA PO; -SIMV-46 PO
[2023-11-14 15:14] LABS: BASOPHILS % (AUTO) 0.5 % (0.0-2.0); EOSINOPHILS % (AUTO) 0.4 % (0.0-6.0); HEMATOCRIT 27 % (33-45); HEMOGLOBIN 8.7 g/dL (11.5-14.8); LYMPHOCYTES # (AUTO) 0.4 K/uL (0.8-4.8); MEAN CORPUSCULAR HEMOGLOBIN 29 PG (26.0-33.0); MEAN CORPUSCULAR HGB CONC 33 g/dl (31.0-36.0); MEAN CORPUSCULAR VOLUME 87 fL (82-100); MONOCYTES # (AUTO) 0.2 K/uL (0.1-1.30); MONOCYTES % (AUTO) 5.6 % (2.0-12.0); NEUTROPHILS # (AUTO) 2.9 K/uL (1.8-8.9); NEUTROPHILS % (AUTO) 83.5 % (43.0-81.0); PLATELET COUNT (AUTO) 136 K/uL (150-450); RED BLOOD CELL COUNT(AUTO) 3.05 MIL/uL (4.0-5.2); RED CELL DISTRIBUTION WIDTH 15.8 % (11.5-15.0); WHITE BLOOD COUNT (AUTO) 3.5 K/uL (4.3-11.0)
[2023-11-14 15:38] LABS: ALANINE AMINOTRANSFERASE 40 U/L (12-78); ALBUMIN 2.5 g/dL (3.4-5.0); ALKALINE PHOSPHATASE 208 U/L (46-116); ASPARTATE AMINOTRANSFERASE 27 U/L (15-37); BILIRUBIN,DIRECT 0.1 mg/dL (0.0-0.2); BILIRUBIN,TOTAL 0.3 mg/dL (0.2-1.0); CALCIUM, SERUM 8.3 mg/dL (8.5-10.1); CARBON DIOXIDE 21 mmol/L (21-32); CHLORIDE 105 mmol/L (98-107); CREATININE 2.1 mg/dL (0.6-1.3); GLUCOSE 138 mg/dL (74-106); NT-PRO BNP > 25000 pg/mL (0-125); POTASSIUM 6.1 mmol/L (3.5-5.1); SODIUM SERUM 134 mmol/L (136-145); TOTAL PROTEIN, SERUM 6.4 g/dL (6.4-8.2); UREA NITROGEN, BLOOD 72 mg/dL (7-18)
[2023-11-14] MEDS ORDERED: FUROSEMIDE 40 MG/4 ML VIAL ONE (15:59)
[2023-11-14] MEDS ORDERED: HYDR-4077 PO (15:59)
[2023-11-14] MEDS: FUROSEMIDE 40 MG/4 ML VIAL IV ONE (16:00)
[2023-11-14] MEDS ORDERED: SODIUM POLYSTYRENE SULFONATE 15 G/60 ML BOTTLE ONE (18:09)
[2023-11-14] MEDS: SODIUM POLYSTYRENE SULFONATE 15 G/60 ML BOTTLE PO ONE (18:15)
[2023-11-14] MEDS ORDERED: ZOLPIDEM TARTRATE 5 MG TABLET PO PRN (19:00)
[2023-11-14] MEDS ORDERED: BUMETANIDE (1 MG) 1 MG TABLET ONE (20:04)
[2023-11-14] MEDS: BUMETANIDE (1 MG) 1 MG TABLET PO ONE (20:06)
[2023-11-14] MEDS: METOLAZONE 2.5 MG TABLET PO ONE (22:39)
[2023-11-14] MEDS: METOLAZONE 2.5 MG TABLET ONE (22:40)
[2023-11-14 23:16] VITALS: BP 150/74; TEMP 98.1; O2SAT 98
[2023-11-15] VITALS: BP 146/65; TEMP 98.1; O2SAT 100
[2023-11-15 04:00] VITALS: BP 156/70; TEMP 97.5; O2SAT 100
[2023-11-15 06:54] LABS: BASOPHILS % (AUTO) 0.9 % (0.0-2.0); EOSINOPHILS # (AUTO) 0.1 K/uL (0.0-0.7); EOSINOPHILS % (AUTO) 2.3 % (0.0-6.0); HEMATOCRIT 26 % (33-45); HEMOGLOBIN 8.7 g/dL (11.5-14.8); LYMPHOCYTES # (AUTO) 0.5 K/uL (0.8-4.8); LYMPHOCYTES % (AUTO) 17.3 % (20.0-44.0); MEAN CORPUSCULAR HEMOGLOBIN 29 PG (26.0-33.0); MEAN CORPUSCULAR HGB CONC 33 g/dl (31.0-36.0); MEAN CORPUSCULAR VOLUME 87 fL (82-100); MONOCYTES # (AUTO) 0.3 K/uL (0.1-1.30); MONOCYTES % (AUTO) 11.4 % (2.0-12.0); NEUTROPHILS # (AUTO) 1.8 K/uL (1.8-8.9); NEUTROPHILS % (AUTO) 68.1 % (43.0-81.0); PLATELET COUNT (AUTO) 136 K/uL (150-450); RED BLOOD CELL COUNT(AUTO) 3.01 MIL/uL (4.0-5.2); RED CELL DISTRIBUTION WIDTH 16.3 % (11.5-15.0); WHITE BLOOD COUNT (AUTO) 2.7 K/uL (4.3-11.0)
[2023-11-15 07:08] LABS: ALANINE AMINOTRANSFERASE 40 U/L (12-78); ALBUMIN 2.4 g/dL (3.4-5.0); ALKALINE PHOSPHATASE 206 U/L (46-116); ASPARTATE AMINOTRANSFERASE 28 U/L (15-37); BILIRUBIN,TOTAL 0.4 mg/dL (0.2-1.0); CALCIUM, SERUM 8.5 mg/dL (8.5-10.1); CARBON DIOXIDE 22 mmol/L (21-32); CHLORIDE 107 mmol/L (98-107); CREATININE 2.2 mg/dL (0.6-1.3); GLUCOSE 107 mg/dL (74-106); POTASSIUM 4.9 mmol/L (3.5-5.1); SODIUM SERUM 139 mmol/L (136-145); TOTAL PROTEIN, SERUM 6.2 g/dL (6.4-8.2); UREA NITROGEN, BLOOD 73 mg/dL (7-18)
[2023-11-15 08:00] VITALS: BP 178/80; TEMP 97.3; O2SAT 100
[2023-11-15] MEDS: METOLAZONE 2.5 MG TABLET PO SCH (08:46)
[2023-11-15] MEDS: BUMETANIDE (1 MG) 1 MG TABLET PO SCH (08:46)
[2023-11-15] MEDS: hydrALAZINE HCL 50 MG TABLET PO SCH (08:46)
[2023-11-15] MEDS: AMLODIPINE BESYLATE 5 MG TABLET PO SCH (08:47)
[2023-11-15] MEDS: LINAGLIPTIN 5 MG TABLET PO SCH (08:47)
[2023-11-15] MEDS: CARVEDILOL 12.5 MG TABLET PO SCH (08:47)
[2023-11-15] MEDS: ASPIRIN 81 MG TAB.CHEW PO SCH (08:48)
[2023-11-15] MEDS: PIPERACILLIN /TAZOBACTAM 2.25 G in IV D5W 50 ML IV SCH (08:55)
[2023-11-15] MEDS ORDERED: METOLAZONE 2.5 MG TABLET PO SCH (09:00)
[2023-11-15 12:00] VITALS: BP 129/73; TEMP 97.2; O2SAT 93
[2023-11-15 12:34] LABS: INR 1.13 (0.91-1.10); PROTHROMBIN TIME 11.9 SECS (9.2-11.1)
[2023-11-15 16:00] VITALS: BP 99/65; TEMP 98.1; O2SAT 94
[2023-11-15 16:19] LABS: PROTEIN, BODY FLUID 2.4 G/DL
[2023-11-15 19:07] LABS: APPEARANCE,SPUN,BODY FLUID CLEAR (CLEAR); TOTAL VOLUME,BODY FLUID 1700 mL; WBC, BODY FLUID 126 /cu. mm. (0-200)
[2023-11-15 19:09] LABS: MACROPHAGES, BODY FLUID 43; POLYNUCLEAR, BODY FLUID 5 % (0-25)
[2023-11-15 22:10] VITALS: BP 136/70; TEMP 98; O2SAT 94
[2023-11-16 00:09] VITALS: BP 138/70; TEMP 98.1; O2SAT 98
[2023-11-16 04:18] VITALS: BP 129/75; TEMP 98.1; O2SAT 98
[2023-11-16 07:10] LABS: BASOPHILS % (AUTO) 0.9 % (0.0-2.0); EOSINOPHILS # (AUTO) 0.1 K/uL (0.0-0.7); EOSINOPHILS % (AUTO) 1.5 % (0.0-6.0); HEMATOCRIT 26 % (33-45); HEMOGLOBIN 8.6 g/dL (11.5-14.8); LYMPHOCYTES # (AUTO) 0.4 K/uL (0.8-4.8); LYMPHOCYTES % (AUTO) 7.8 % (20.0-44.0); MEAN CORPUSCULAR HEMOGLOBIN 29 PG (26.0-33.0); MEAN CORPUSCULAR HGB CONC 33 g/dl (31.0-36.0); MEAN CORPUSCULAR VOLUME 87 fL (82-100); MONOCYTES # (AUTO) 0.4 K/uL (0.1-1.30); NEUTROPHILS # (AUTO) 4.1 K/uL (1.8-8.9); NEUTROPHILS % (AUTO) 81.8 % (43.0-81.0); PLATELET COUNT (AUTO) 139 K/uL (150-450); RED CELL DISTRIBUTION WIDTH 15.9 % (11.5-15.0)
[2023-11-16 07:48] LABS: CALCIUM, SERUM 8.3 mg/dL (8.5-10.1); CARBON DIOXIDE 23 mmol/L (21-32); CHLORIDE 106 mmol/L (98-107); CREATININE 2.3 mg/dL (0.6-1.3); GLUCOSE 140 mg/dL (74-106); POTASSIUM 4.6 mmol/L (3.5-5.1); SODIUM SERUM 137 mmol/L (136-145); UREA NITROGEN, BLOOD 74 mg/dL (7-18)
[2023-11-16 08:00] VITALS: BP 159/77; TEMP 97.7; O2SAT 98
[2023-11-16 12:00] VITALS: BP 159/77; TEMP 97.7; O2SAT 98
[2023-11-16 16:00] VITALS: BP 129/56; TEMP 98.7; O2SAT 98
[2023-11-16 20:00] VITALS: BP 102/53; TEMP 97.8; O2SAT 98
[2023-11-17] VITALS: BP 109/60; TEMP 97.9; O2SAT 98
[2023-11-17 04:00] VITALS: BP 105/50; TEMP 97.9; O2SAT 98
[2023-11-17 06:01] LABS: BASOPHILS % (AUTO) 1.1 % (0.0-2.0); EOSINOPHILS # (AUTO) 0.1 K/uL (0.0-0.7); EOSINOPHILS % (AUTO) 2.8 % (0.0-6.0); HEMATOCRIT 25 % (33-45); HEMOGLOBIN 8.2 g/dL (11.5-14.8); LYMPHOCYTES # (AUTO) 0.5 K/uL (0.8-4.8); LYMPHOCYTES % (AUTO) 14.6 % (20.0-44.0); MEAN CORPUSCULAR HEMOGLOBIN 29 PG (26.0-33.0); MEAN CORPUSCULAR HGB CONC 33 g/dl (31.0-36.0); MEAN CORPUSCULAR VOLUME 87 fL (82-100); MONOCYTES # (AUTO) 0.4 K/uL (0.1-1.30); MONOCYTES % (AUTO) 10.1 % (2.0-12.0); NEUTROPHILS # (AUTO) 2.5 K/uL (1.8-8.9); NEUTROPHILS % (AUTO) 71.4 % (43.0-81.0); PLATELET COUNT (AUTO) 129 K/uL (150-450); RED BLOOD CELL COUNT(AUTO) 2.84 MIL/uL (4.0-5.2); RED CELL DISTRIBUTION WIDTH 16.2 % (11.5-15.0); WHITE BLOOD COUNT (AUTO) 3.5 K/uL (4.3-11.0)
[2023-11-17 06:15] LABS: CARBON DIOXIDE 25 mmol/L (21-32); CHLORIDE 104 mmol/L (98-107); CREATININE 2.5 mg/dL (0.6-1.3); GLUCOSE 145 mg/dL (74-106); POTASSIUM 4.4 mmol/L (3.5-5.1); SODIUM SERUM 135 mmol/L (136-145); UREA NITROGEN, BLOOD 79 mg/dL (7-18)
[2023-11-17 08:00] VITALS: BP 135/65; TEMP 97.8; O2SAT 98
[2023-11-17] MEDS ORDERED: AMOX-430 PO (09:03)
[2023-11-17] MEDS: BUMETANIDE (1 MG) 1 MG TABLET PO SCH (09:55)
[2023-11-17 12:00] VITALS: BP 108/48; TEMP 97.8; O2SAT 98
[2023-11-17 16:00] VITALS: BP 114/47; TEMP 97.8; O2SAT 98
[2023-11-17 20:00] VITALS: BP 125/66; TEMP 97.5; O2SAT 98
[2023-11-18] VITALS: BP 96/44; TEMP 98; O2SAT 96
[2023-11-18 04:00] VITALS: BP 126/61; TEMP 97.8; O2SAT 98
[2023-11-18 07:53] LABS: INR 1.05 (0.91-1.10); PARTIAL THROMBOPLASTIN TIME 35.3 SEC (24.3-34.3); PROTHROMBIN TIME 11.1 SECS (9.2-11.1)
[2023-11-18 08:00] VITALS: BP 136/61; TEMP 97.5; O2SAT 98
[2023-11-18 12:00] VITALS: BP 103/49; TEMP 97.5; O2SAT 98
[2023-11-18 16:00] VITALS: BP 103/49; TEMP 97.5; O2SAT 98
[2023-11-18 20:00] VITALS: BP 125/62; TEMP 97.5; O2SAT 97
[2023-11-19] VITALS: BP 127/55; TEMP 97.8; O2SAT 98
[2023-11-19 04:00] VITALS: BP 120/62; TEMP 97.5; O2SAT 96
[2023-11-19 07:05] LABS: EOSINOPHILS # (AUTO) 0.1 K/uL (0.0-0.7); EOSINOPHILS % (AUTO) 2.4 % (0.0-6.0); HEMATOCRIT 25 % (33-45); HEMOGLOBIN 8.1 g/dL (11.5-14.8); LYMPHOCYTES # (AUTO) 0.4 K/uL (0.8-4.8); LYMPHOCYTES % (AUTO) 12.6 % (20.0-44.0); MEAN CORPUSCULAR HEMOGLOBIN 28 PG (26.0-33.0); MEAN CORPUSCULAR HGB CONC 32 g/dl (31.0-36.0); MEAN CORPUSCULAR VOLUME 87 fL (82-100); MONOCYTES # (AUTO) 0.3 K/uL (0.1-1.30); MONOCYTES % (AUTO) 9.6 % (2.0-12.0); NEUTROPHILS # (AUTO) 2.6 K/uL (1.8-8.9); NEUTROPHILS % (AUTO) 74.4 % (43.0-81.0); PLATELET COUNT (AUTO) 129 K/uL (150-450); RED BLOOD CELL COUNT(AUTO) 2.91 MIL/uL (4.0-5.2); RED CELL DISTRIBUTION WIDTH 16.2 % (11.5-15.0); WHITE BLOOD COUNT (AUTO) 3.5 K/uL (4.3-11.0)
[2023-11-19 07:31] LABS: CALCIUM, SERUM 7.9 mg/dL (8.5-10.1); CHLORIDE 103 mmol/L (98-107); CREATININE 2.4 mg/dL (0.6-1.3); GLUCOSE 165 mg/dL (74-106); POTASSIUM 4.2 mmol/L (3.5-5.1); SODIUM SERUM 136 mmol/L (136-145)
[2023-11-19 08:00] VITALS: BP 142/72; TEMP 97.9; O2SAT 96
[2023-11-19 08:27] LABS: CARBON DIOXIDE 23 mmol/L (21-32)
[2023-11-19 08:29] LABS: UREA NITROGEN, BLOOD 81 mg/dL (7-18)
[2023-11-19 12:00] VITALS: BP 122/76; TEMP 97.7; O2SAT 96
[2023-11-19 16:00] VITALS: BP 118/59; TEMP 97.9; O2SAT 96
[2023-11-19 20:00] VITALS: BP 125/57; TEMP 97.7; O2SAT 96
[2023-11-20] VITALS: BP 129/63; TEMP 97.4; O2SAT 95
[2023-11-20 04:00] VITALS: BP 134/59; TEMP 97.7; O2SAT 96
[2023-11-20 07:03] LABS: BASOPHILS % (AUTO) 0.9 % (0.0-2.0); EOSINOPHILS # (AUTO) 0.1 K/uL (0.0-0.7); EOSINOPHILS % (AUTO) 3.1 % (0.0-6.0); HEMATOCRIT 25 % (33-45); HEMOGLOBIN 8.1 g/dL (11.5-14.8); LYMPHOCYTES # (AUTO) 0.5 K/uL (0.8-4.8); LYMPHOCYTES % (AUTO) 12.1 % (20.0-44.0); MEAN CORPUSCULAR HEMOGLOBIN 28 PG (26.0-33.0); MEAN CORPUSCULAR HGB CONC 33 g/dl (31.0-36.0); MEAN CORPUSCULAR VOLUME 86 fL (82-100); MONOCYTES # (AUTO) 0.4 K/uL (0.1-1.30); MONOCYTES % (AUTO) 10.2 % (2.0-12.0); NEUTROPHILS # (AUTO) 2.8 K/uL (1.8-8.9); NEUTROPHILS % (AUTO) 73.7 % (43.0-81.0); PLATELET COUNT (AUTO) 126 K/uL (150-450); RED BLOOD CELL COUNT(AUTO) 2.86 MIL/uL (4.0-5.2); RED CELL DISTRIBUTION WIDTH 15.6 % (11.5-15.0); WHITE BLOOD COUNT (AUTO) 3.9 K/uL (4.3-11.0)
[2023-11-20 07:27] LABS: CALCIUM, SERUM 8.2 mg/dL (8.5-10.1); CARBON DIOXIDE 23 mmol/L (21-32); CHLORIDE 100 mmol/L (98-107); CREATININE 2.5 mg/dL (0.6-1.3); GLUCOSE 175 mg/dL (74-106); POTASSIUM 4.1 mmol/L (3.5-5.1); SODIUM SERUM 135 mmol/L (136-145); UREA NITROGEN, BLOOD 79 mg/dL (7-18)
[2023-11-20 08:00] VITALS: BP 156/63; TEMP 97.9; O2SAT 96
[2023-11-20] MEDS: AMLODIPINE BESYLATE 5 MG TABLET PO SCH (08:10)
[2023-11-20 12:00] VITALS: BP 127/58; TEMP 97.9; O2SAT 96
[2023-11-20 16:00] VITALS: BP 127/53; TEMP 97.9; O2SAT 96
[2023-11-20 20:00] VITALS: BP 110/60; TEMP 97.7; O2SAT 94
[2023-11-21] VITALS: BP 128/55; TEMP 98.1; O2SAT 95
[2023-11-21 04:00] VITALS: BP 128/62; TEMP 98.2; O2SAT 94
[2023-11-21 08:00] VITALS: BP 129/61; TEMP 97.9; O2SAT 94
[2023-11-21 08:01] LABS: CARBON DIOXIDE 24 mmol/L (21-32); CHLORIDE 99 mmol/L (98-107); CREATININE 2.4 mg/dL (0.6-1.3); GLUCOSE 118 mg/dL (74-106); SODIUM SERUM 133 mmol/L (136-145); UREA NITROGEN, BLOOD 77 mg/dL (7-18)
[2023-11-21 12:00] VITALS: BP 152/66; TEMP 97.7; O2SAT 94
[2023-11-21 16:00] VITALS: BP 118/60; TEMP 97.9; O2SAT 94
[2023-11-21 20:00] VITALS: BP 128/57; TEMP 98.2; O2SAT 95
[2023-11-22] VITALS: BP 124/56; TEMP 99.1; O2SAT 95
[2023-11-22 04:00] VITALS: BP 125/59; TEMP 99.1; O2SAT 94
[2023-11-22 08:00] VITALS: BP 147/63; TEMP 97.5; O2SAT 96
[2023-11-22 12:00] VITALS: BP 117/59; TEMP 97.9; O2SAT 95
[2023-11-22 16:00] VITALS: BP 121/63; TEMP 97.7; O2SAT 94
[2023-11-22 20:00] VITALS: BP 120/48; TEMP 98.2; O2SAT 94
[2023-11-23] VITALS: BP 133/65; TEMP 98.8; O2SAT 98
[2023-11-23 04:00] VITALS: BP 133/60; TEMP 98.7; O2SAT 95
[2023-11-23 07:41] LABS: BASOPHILS % (AUTO) 0.6 % (0.0-2.0); EOSINOPHILS # (AUTO) 0.1 K/uL (0.0-0.7); EOSINOPHILS % (AUTO) 1.6 % (0.0-6.0); HEMATOCRIT 23 % (33-45); HEMOGLOBIN 7.8 g/dL (11.5-14.8); LYMPHOCYTES # (AUTO) 0.5 K/uL (0.8-4.8); LYMPHOCYTES % (AUTO) 9.2 % (20.0-44.0); MEAN CORPUSCULAR HEMOGLOBIN 29 PG (26.0-33.0); MEAN CORPUSCULAR HGB CONC 34 g/dl (31.0-36.0); MEAN CORPUSCULAR VOLUME 85 fL (82-100); MONOCYTES # (AUTO) 0.7 K/uL (0.1-1.30); MONOCYTES % (AUTO) 12.3 % (2.0-12.0); NEUTROPHILS # (AUTO) 4.1 K/uL (1.8-8.9); NEUTROPHILS % (AUTO) 76.3 % (43.0-81.0); PLATELET COUNT (AUTO) 119 K/uL (150-450); RED BLOOD CELL COUNT(AUTO) 2.73 MIL/uL (4.0-5.2); RED CELL DISTRIBUTION WIDTH 15.4 % (11.5-15.0); WHITE BLOOD COUNT (AUTO) 5.4 K/uL (4.3-11.0)
[2023-11-23 08:00] VITALS: BP 134/63; TEMP 99; O2SAT 95
[2023-11-23 08:15] LABS: ALANINE AMINOTRANSFERASE 22 U/L (12-78); ALBUMIN 1.8 g/dL (3.4-5.0); ALKALINE PHOSPHATASE 142 U/L (46-116); ASPARTATE AMINOTRANSFERASE 19 U/L (15-37); BILIRUBIN,TOTAL 0.4 mg/dL (0.2-1.0); CALCIUM, SERUM 8.2 mg/dL (8.5-10.1); CARBON DIOXIDE 24 mmol/L (21-32); CHLORIDE 99 mmol/L (98-107); CREATININE 2.3 mg/dL (0.6-1.3); GLUCOSE 125 mg/dL (74-106); POTASSIUM 3.7 mmol/L (3.5-5.1); SODIUM SERUM 134 mmol/L (136-145); TOTAL PROTEIN, SERUM 5.7 g/dL (6.4-8.2); UREA NITROGEN, BLOOD 79 mg/dL (7-18)
[2023-11-23 12:00] VITALS: BP 140/59; TEMP 98.5; O2SAT 95
[2023-11-23 16:00] VITALS: BP 147/59; TEMP 98.6; O2SAT 95
[2023-11-23 20:00] VITALS: BP 110/57; TEMP 97.5; O2SAT 88
[2023-11-24] VITALS: BP 112/56; TEMP 98; O2SAT 95
[2023-11-24 04:00] VITALS: BP 133/56; TEMP 97.9; O2SAT 98
[2023-11-24 08:00] VITALS: BP 121/52; TEMP 98.2; O2SAT 98
[2023-11-24 08:16] LABS: BASOPHILS % (AUTO) 0.7 % (0.0-2.0); EOSINOPHILS # (AUTO) 0.1 K/uL (0.0-0.7); EOSINOPHILS % (AUTO) 2.7 % (0.0-6.0); HEMATOCRIT 23 % (33-45); HEMOGLOBIN 7.5 g/dL (11.5-14.8); LYMPHOCYTES # (AUTO) 0.4 K/uL (0.8-4.8); LYMPHOCYTES % (AUTO) 8.1 % (20.0-44.0); MEAN CORPUSCULAR HEMOGLOBIN 28 PG (26.0-33.0); MEAN CORPUSCULAR HGB CONC 33 g/dl (31.0-36.0); MEAN CORPUSCULAR VOLUME 85 fL (82-100); MONOCYTES # (AUTO) 0.6 K/uL (0.1-1.30); MONOCYTES % (AUTO) 11.5 % (2.0-12.0); NEUTROPHILS # (AUTO) 3.8 K/uL (1.8-8.9); PLATELET COUNT (AUTO) 120 K/uL (150-450); RED BLOOD CELL COUNT(AUTO) 2.66 MIL/uL (4.0-5.2); RED CELL DISTRIBUTION WIDTH 15.6 % (11.5-15.0); WHITE BLOOD COUNT (AUTO) 4.9 K/uL (4.3-11.0)
[2023-11-24 08:40] LABS: CALCIUM, SERUM 8.1 mg/dL (8.5-10.1); CARBON DIOXIDE 25 mmol/L (21-32); CHLORIDE 99 mmol/L (98-107); CREATININE 2.4 mg/dL (0.6-1.3); GLUCOSE 129 mg/dL (74-106); POTASSIUM 3.8 mmol/L (3.5-5.1); SODIUM SERUM 133 mmol/L (136-145); UREA NITROGEN, BLOOD 83 mg/dL (7-18)
[2023-11-24 12:00] VITALS: BP 129/60; TEMP 98.2; O2SAT 98
[2023-11-24 16:00] VITALS: BP 138/68; TEMP 98.9; O2SAT 98
[2023-11-24 20:00] VITALS: BP 135/57; TEMP 98.2; O2SAT 97
[2023-11-25] VITALS: BP 122/55; TEMP 99; O2SAT 94
[2023-11-25 04:00] VITALS: BP 140/55; TEMP 97.9; O2SAT 95
[2023-11-25 08:00] VITALS: BP 134/61; TEMP 97.9; O2SAT 95
[2023-11-25 12:00] VITALS: BP 125/61; TEMP 97.8; O2SAT 95
[2023-11-25 16:00] VITALS: BP 112/45; TEMP 97.8; O2SAT 95
[2023-11-25 20:00] VITALS: BP 129/52; TEMP 97.9; O2SAT 97
[2023-11-26] VITALS: BP 132/55; TEMP 98; O2SAT 96
[2023-11-26 04:00] VITALS: BP 131/62; TEMP 98; O2SAT 97
[2023-11-26 08:00] VITALS: BP 146/60; TEMP 97.7; O2SAT 96
[2023-11-26 12:00] VITALS: BP 114/59; TEMP 97.7; O2SAT 98
[2023-11-26 16:00] VITALS: BP 106/56; TEMP 97.7; O2SAT 92
[2023-11-26 20:00] VITALS: BP 113/50; TEMP 98.3; O2SAT 90
[2023-11-27] VITALS: BP 122/54; TEMP 97.7; O2SAT 91
[2023-11-27 04:00] VITALS: BP 120/58; TEMP 97.8; O2SAT 91
[2023-11-27 07:23] LABS: BASOPHILS # (AUTO) 0.1 K/uL (0.0-0.2); BASOPHILS % (AUTO) 1.4 % (0.0-2.0); EOSINOPHILS # (AUTO) 0.2 K/uL (0.0-0.7); EOSINOPHILS % (AUTO) 5.4 % (0.0-6.0); HEMATOCRIT 22 % (33-45); HEMOGLOBIN 7.5 g/dL (11.5-14.8); LYMPHOCYTES # (AUTO) 0.4 K/uL (0.8-4.8); LYMPHOCYTES % (AUTO) 8.7 % (20.0-44.0); MEAN CORPUSCULAR HEMOGLOBIN 28 PG (26.0-33.0); MEAN CORPUSCULAR HGB CONC 33 g/dl (31.0-36.0); MEAN CORPUSCULAR VOLUME 85 fL (82-100); MONOCYTES # (AUTO) 0.5 K/uL (0.1-1.30); MONOCYTES % (AUTO) 10.8 % (2.0-12.0); NEUTROPHILS # (AUTO) 3.1 K/uL (1.8-8.9); NEUTROPHILS % (AUTO) 73.7 % (43.0-81.0); PLATELET COUNT (AUTO) 155 K/uL (150-450); RED BLOOD CELL COUNT(AUTO) 2.63 MIL/uL (4.0-5.2); RED CELL DISTRIBUTION WIDTH 15.6 % (11.5-15.0); WHITE BLOOD COUNT (AUTO) 4.2 K/uL (4.3-11.0)
[2023-11-27 07:29] LABS: CALCIUM, SERUM 8.4 mg/dL (8.5-10.1); CARBON DIOXIDE 24 mmol/L (21-32); CHLORIDE 99 mmol/L (98-107); CREATININE 2.4 mg/dL (0.6-1.3); GLUCOSE 160 mg/dL (74-106); POTASSIUM 4.2 mmol/L (3.5-5.1); SODIUM SERUM 133 mmol/L (136-145)
[2023-11-27 08:00] VITALS: BP 135/62; TEMP 98.4; O2SAT 94
[2023-11-27 08:04] LABS: UREA NITROGEN, BLOOD 90 mg/dL (7-18)
[2023-11-27 12:00] VITALS: BP 120/51; TEMP 98.4; O2SAT 94
[2023-11-27 16:00] VITALS: BP 105/55; TEMP 98; O2SAT 92
[2023-11-27] MEDS: ACETAMINOPHEN 325 MG TABLET PO PRN (17:36)
[2023-11-27 20:00] VITALS: BP 133/61; TEMP 98.6; O2SAT 92
[2023-11-28] VITALS: BP 134/65; TEMP 99; O2SAT 94
[2023-11-28 04:00] VITALS: BP 133/62; TEMP 98.4; O2SAT 94
[2023-11-28 08:00] VITALS: BP 137/64; TEMP 98.1; O2SAT 93
[2023-11-28 12:00] VITALS: BP 130/68; TEMP 97.3; O2SAT 91
[2023-11-28] MEDS: LEVOFLOXACIN (250MG) 250 MG TABLET PO SCH (14:57)
[2023-11-28 16:00] VITALS: BP 117/60; TEMP 98; O2SAT 91
[2023-11-28 20:00] VITALS: BP 105/51; TEMP 98; O2SAT 93
[2023-11-29] VITALS: BP 106/55; TEMP 97.8; O2SAT 94
[2023-11-29 04:00] VITALS: BP 123/62; TEMP 97.9; O2SAT 94
[2023-11-29 07:46] LABS: BASOPHILS # (AUTO) 0.1 K/uL (0.0-0.2); BASOPHILS % (AUTO) 1.2 % (0.0-2.0); EOSINOPHILS # (AUTO) 0.2 K/uL (0.0-0.7); EOSINOPHILS % (AUTO) 4.5 % (0.0-6.0); HEMATOCRIT 21 % (33-45); HEMOGLOBIN 7.2 g/dL (11.5-14.8); LYMPHOCYTES # (AUTO) 0.3 K/uL (0.8-4.8); LYMPHOCYTES % (AUTO) 7.1 % (20.0-44.0); MEAN CORPUSCULAR HEMOGLOBIN 29 PG (26.0-33.0); MEAN CORPUSCULAR HGB CONC 34 g/dl (31.0-36.0); MEAN CORPUSCULAR VOLUME 85 fL (82-100); MONOCYTES # (AUTO) 0.5 K/uL (0.1-1.30); MONOCYTES % (AUTO) 10.2 % (2.0-12.0); NEUTROPHILS # (AUTO) 3.6 K/uL (1.8-8.9); PLATELET COUNT (AUTO) 163 K/uL (150-450); RED BLOOD CELL COUNT(AUTO) 2.53 MIL/uL (4.0-5.2); RED CELL DISTRIBUTION WIDTH 15.4 % (11.5-15.0); WHITE BLOOD COUNT (AUTO) 4.6 K/uL (4.3-11.0)
[2023-11-29 08:00] VITALS: BP 145/63; TEMP 98.2; O2SAT 93
[2023-11-29 08:19] LABS: CALCIUM, SERUM 8.7 mg/dL (8.5-10.1); CARBON DIOXIDE 23 mmol/L (21-32); CHLORIDE 99 mmol/L (98-107); CREATININE 2.1 mg/dL (0.6-1.3); GLUCOSE 138 mg/dL (74-106); POTASSIUM 4.2 mmol/L (3.5-5.1); SODIUM SERUM 133 mmol/L (136-145)
[2023-11-29 08:29] LABS: UREA NITROGEN, BLOOD 91 mg/dL (7-18)
[2023-11-29] MEDS: HEPARIN SODIUM, PORCINE 5000 UNITS/1 ML VIAL SQ SCH (09:00)
[2023-11-29] MEDS: BUMETANIDE (1 MG) 1 MG TABLET PO SCH (10:24)
[2023-11-29 12:00] VITALS: BP 147/68
[2023-11-29 16:00] VITALS: BP 122/70; TEMP 98.1; O2SAT 93
[2023-11-29] MEDS: BUMETANIDE INJ 0.25 MG/ML VIAL IV SCH (17:16)
[2023-11-29 20:00] VITALS: BP 147/60; TEMP 97.7; O2SAT 95
[2023-11-30] VITALS (8 sets, daily range): BP systolic 102–143; BP diastolic 42–69; TEMP 98–98.6; O2SAT 91–98
[2023-11-30 07:58] LABS: ALANINE AMINOTRANSFERASE 59 U/L (12-78); ALBUMIN 1.8 g/dL (3.4-5.0); ALKALINE PHOSPHATASE 365 U/L (46-116); ASPARTATE AMINOTRANSFERASE 47 U/L (15-37); BILIRUBIN,TOTAL 0.4 mg/dL (0.2-1.0); CALCIUM, SERUM 8.4 mg/dL (8.5-10.1); CARBON DIOXIDE 25 mmol/L (21-32); CHLORIDE 99 mmol/L (98-107); CREATININE 2.1 mg/dL (0.6-1.3); GLUCOSE 101 mg/dL (74-106); POTASSIUM 4.3 mmol/L (3.5-5.1); SODIUM SERUM 133 mmol/L (136-145); TOTAL PROTEIN, SERUM 6.1 g/dL (6.4-8.2)
[2023-11-30 08:00] LABS: UREA NITROGEN, BLOOD 91 mg/dL (7-18)
[2023-11-30 08:04] LABS: BASOPHILS # (AUTO) 0.1 K/uL (0.0-0.2); BASOPHILS % (AUTO) 1.2 % (0.0-2.0); EOSINOPHILS # (AUTO) 0.2 K/uL (0.0-0.7); EOSINOPHILS % (AUTO) 3.6 % (0.0-6.0); HEMATOCRIT 21 % (33-45); LYMPHOCYTES # (AUTO) 0.4 K/uL (0.8-4.8); LYMPHOCYTES % (AUTO) 9.6 % (20.0-44.0); MEAN CORPUSCULAR HEMOGLOBIN 28 PG (26.0-33.0); MEAN CORPUSCULAR HGB CONC 33 g/dl (31.0-36.0); MEAN CORPUSCULAR VOLUME 85 fL (82-100); MONOCYTES # (AUTO) 0.5 K/uL (0.1-1.30); MONOCYTES % (AUTO) 10.7 % (2.0-12.0); NEUTROPHILS # (AUTO) 3.4 K/uL (1.8-8.9); NEUTROPHILS % (AUTO) 74.9 % (43.0-81.0); PLATELET COUNT (AUTO) 176 K/uL (150-450); RED BLOOD CELL COUNT(AUTO) 2.46 MIL/uL (4.0-5.2); RED CELL DISTRIBUTION WIDTH 15.8 % (11.5-15.0); WHITE BLOOD COUNT (AUTO) 4.6 K/uL (4.3-11.0)
[2023-11-30 08:12] LABS: HEMOGLOBIN 6.9 g/dL (11.5-14.8)
[2023-11-30] MEDS: METOLAZONE 2.5 MG TABLET PO SCH (09:44)
[2023-11-30 10:36] LABS: ANISOCYTOSIS 1+; BASOPHILS % (MANUAL) 0 % (0.0-2.0); EOSINOPHILS % (MANUAL) 6 % (0-4); HYPOCHROMASIA 1+; LYMPHOCYTES % (MANUAL) 7 % (16-48); MONOCYTES % (MANUAL) 11 % (0-11.0); NEUTROPHILS % (MANUAL) 76 (42-76); PLATELET ESTIMATE ADEQUATE
[2023-11-30 12:48] LABS: INR 1.03 (0.91-1.10); PARTIAL THROMBOPLASTIN TIME 36.2 SEC (24.3-34.3); PROTHROMBIN TIME 10.9 SECS (9.2-11.1)
[2023-11-30] MEDS: BUMETANIDE INJ 0.25 MG/ML VIAL IV SCH (15:50)
[2023-12-01 04:00] VITALS: BP 110/50; TEMP 98; O2SAT 95
[2023-12-01 06:28] LABS: EOSINOPHILS # (AUTO) 0.1 K/uL (0.0-0.7); EOSINOPHILS % (AUTO) 2.8 % (0.0-6.0); HEMATOCRIT 23 % (33-45); HEMOGLOBIN 7.5 g/dL (11.5-14.8); LYMPHOCYTES # (AUTO) 0.4 K/uL (0.8-4.8); LYMPHOCYTES % (AUTO) 9.2 % (20.0-44.0); MEAN CORPUSCULAR HEMOGLOBIN 29 PG (26.0-33.0); MEAN CORPUSCULAR HGB CONC 34 g/dl (31.0-36.0); MEAN CORPUSCULAR VOLUME 85 fL (82-100); MONOCYTES # (AUTO) 0.6 K/uL (0.1-1.30); NEUTROPHILS # (AUTO) 3.5 K/uL (1.8-8.9); PLATELET COUNT (AUTO) 183 K/uL (150-450); RED BLOOD CELL COUNT(AUTO) 2.65 MIL/uL (4.0-5.2); RED CELL DISTRIBUTION WIDTH 15.4 % (11.5-15.0); WHITE BLOOD COUNT (AUTO) 4.7 K/uL (4.3-11.0)
[2023-12-01 06:52] LABS: CALCIUM, SERUM 8.5 mg/dL (8.5-10.1); CARBON DIOXIDE 25 mmol/L (21-32); CHLORIDE 98 mmol/L (98-107); CREATININE 2.2 mg/dL (0.6-1.3); GLUCOSE 112 mg/dL (74-106); POTASSIUM 4.2 mmol/L (3.5-5.1); SODIUM SERUM 133 mmol/L (136-145)
[2023-12-01 06:57] LABS: UREA NITROGEN, BLOOD 97 mg/dL (7-18)
[2023-12-01 08:00] VITALS: BP 131/54; TEMP 98.2; O2SAT 96
[2023-12-01] MEDS: diphenhydrAMINE HCL ELIX 25 MG/10 ML UDC PO PRN (11:47)
[2023-12-01] MEDS: hydrALAZINE HCL 50 MG TABLET PO SCH (13:36)
[2023-12-01 16:00] VITALS: BP 102/51; TEMP 98.1; O2SAT 97
[2023-12-01 20:00] VITALS: BP 104/50; TEMP 98.9; O2SAT 100
[2023-12-02 04:00] VITALS: BP 120/50; TEMP 98; O2SAT 100
[2023-12-02 06:36] LABS: BASOPHILS % (AUTO) 0.7 % (0.0-2.0); EOSINOPHILS # (AUTO) 0.2 K/uL (0.0-0.7); EOSINOPHILS % (AUTO) 4.3 % (0.0-6.0); HEMATOCRIT 22 % (33-45); HEMOGLOBIN 7.5 g/dL (11.5-14.8); LYMPHOCYTES # (AUTO) 0.4 K/uL (0.8-4.8); LYMPHOCYTES % (AUTO) 10.4 % (20.0-44.0); MEAN CORPUSCULAR HEMOGLOBIN 29 PG (26.0-33.0); MEAN CORPUSCULAR HGB CONC 34 g/dl (31.0-36.0); MEAN CORPUSCULAR VOLUME 85 fL (82-100); MONOCYTES # (AUTO) 0.5 K/uL (0.1-1.30); MONOCYTES % (AUTO) 11.3 % (2.0-12.0); NEUTROPHILS % (AUTO) 73.3 % (43.0-81.0); PLATELET COUNT (AUTO) 183 K/uL (150-450); RED BLOOD CELL COUNT(AUTO) 2.62 MIL/uL (4.0-5.2); RED CELL DISTRIBUTION WIDTH 15.3 % (11.5-15.0)
[2023-12-02 07:36] LABS: CHLORIDE 98 mmol/L (98-107); CREATININE 2.4 mg/dL (0.6-1.3); GLUCOSE 120 mg/dL (74-106); POTASSIUM 4.2 mmol/L (3.5-5.1); SODIUM SERUM 132 mmol/L (136-145)
[2023-12-02 08:00] VITALS: BP 128/63; TEMP 97.9; O2SAT 100
[2023-12-02 08:14] LABS: CALCIUM, SERUM 8.1 mg/dL (8.5-10.1); CARBON DIOXIDE 22 mmol/L (21-32)
[2023-12-02 08:25] LABS: UREA NITROGEN, BLOOD 105 mg/dL (7-18)
[2023-12-02] MEDS ORDERED: BUME1TAB9 PO (10:38)
[2023-12-02] MEDS ORDERED: METO2.5T7 PO (10:40)
[2023-12-02 13:00] VITALS: BP 116/49
== END 2023-12-02 14:17 | disposition home health service (06) | DRG 291 ==
LOC: ER 13:50 → TELE1 20:12 → MEDSG1 11-28 13:45
PROVIDERS: ADMIT Internal Medicine; ATTEND Internal Medicine
PROC: 0W993ZX Drainage of Right Pleural Cavity, Percutaneous Approach, Diagnostic (ICD-10-PCS; principal; 2023-11-15)
PROC: 0W9B30Z Drainage of Left Pleural Cavity with Drainage Device, Percutaneous Approach (ICD-10-PCS; 2023-11-18)
PROC: 30233N1 Transfusion of Nonautologous Red Blood Cells into Peripheral Vein, Percutaneous Approach (ICD-10-PCS; 2023-11-30)
DX: I13.0 Hypertensive heart and chronic kidney disease with heart failure and stage 1 through stage 4 chronic kidney disease, or unspecified chronic kidney disease (principal); I50.33 Acute on chronic diastolic (congestive) heart failure; J18.9 Pneumonia, unspecified organism; S27.0XXA Traumatic pneumothorax, initial encounter; J98.11 Atelectasis; N17.9 Acute kidney failure, unspecified; R18.8 Other ascites; E11.22 Type 2 diabetes mellitus with diabetic chronic kidney disease; N18.9 Chronic kidney disease, unspecified; E87.5 Hyperkalemia; X58.XXXA Exposure to other specified factors, initial encounter; Y92.238 Other place in hospital as the place of occurrence of the external cause; D50.9 Iron deficiency anemia, unspecified; E88.09 Other disorders of plasma-protein metabolism, not elsewhere classified; I25.10 Atherosclerotic heart disease of native coronary artery without angina pectoris; Z79.82 Long term (current) use of aspirin; Z79.84 Long term (current) use of oral hypoglycemic drugs; Z79.85 Long-term (current) use of injectable non-insulin antidiabetic drugs
CPT/HCPCS: 36415; 71045-TC; 71250-TC; 80048-TC; 80053-TC; 80076-TC; 82962-TC; 83880; 84484-TC; 85025-TC; 85610-TC; 85730-TC; 86850-TC; 87102-TC; 88108-TC; 88305-TC; 88312-TC; 88341; 88342; 89051-TC; 93970-TC; 97110-TC; 97116-TC; 97530-TC; A4223; A4349; A6253; A6403; G0378; J1940; J2543; J3490; J7030; J7050; J7060; P9016; Q0163

== ENCOUNTER 2023-12-09 15:38 | Inpatient (IN) | payer OTHER ==
[~2023-12-09] VITALS: Ht 162.6 cm; Wt 79.0 kg
[~2023-12-09 15:38] MED LIST changes: -AMLO-212 PO; -AMOX-430 PO; +BUME1TAB9 PO; -DOXA1TAB4 PO; -EMPA10TA PO; +METO2.5T7 PO; -POTA10TA PO
[2023-12-09 16:19] LABS: BASOPHILS % (AUTO) 0.9 % (0.0-2.0); EOSINOPHILS # (AUTO) 0.1 K/uL (0.0-0.7); EOSINOPHILS % (AUTO) 2.5 % (0.0-6.0); HEMATOCRIT 24 % (33-45); HEMOGLOBIN 7.9 g/dL (11.5-14.8); LYMPHOCYTES # (AUTO) 0.3 K/uL (0.8-4.8); LYMPHOCYTES % (AUTO) 7.3 % (20.0-44.0); MEAN CORPUSCULAR HEMOGLOBIN 28 PG (26.0-33.0); MEAN CORPUSCULAR HGB CONC 33 g/dl (31.0-36.0); MEAN CORPUSCULAR VOLUME 86 fL (82-100); MONOCYTES # (AUTO) 0.3 K/uL (0.1-1.30); MONOCYTES % (AUTO) 8.3 % (2.0-12.0); NEUTROPHILS # (AUTO) 3.2 K/uL (1.8-8.9); PLATELET COUNT (AUTO) 196 K/uL (150-450); RED BLOOD CELL COUNT(AUTO) 2.78 MIL/uL (4.0-5.2); RED CELL DISTRIBUTION WIDTH 15.4 % (11.5-15.0)
[2023-12-09] MEDS: BUMETANIDE INJ 0.25 MG/ML VIAL IV ONE (16:26)
[2023-12-09 16:36] LABS: INR 1.12 (0.91-1.10); PARTIAL THROMBOPLASTIN TIME 35.7 SEC (24.3-34.3); PROTHROMBIN TIME 11.8 SECS (9.2-11.1)
[2023-12-09 16:44] LABS: ALANINE AMINOTRANSFERASE 65 U/L (12-78); ALBUMIN 2.2 g/dL (3.4-5.0); ALKALINE PHOSPHATASE 571 U/L (46-116); ASPARTATE AMINOTRANSFERASE 36 U/L (15-37); BILIRUBIN,DIRECT 0.3 mg/dL (0.0-0.2); BILIRUBIN,TOTAL 0.5 mg/dL (0.2-1.0); CARBON DIOXIDE 24 mmol/L (21-32); CHLORIDE 100 mmol/L (98-107); CREATININE 2.1 mg/dL (0.6-1.3); GLUCOSE 153 mg/dL (74-106); NT-PRO BNP 17609 pg/mL (0-125); POTASSIUM 4.9 mmol/L (3.5-5.1); SODIUM SERUM 133 mmol/L (136-145); TOTAL PROTEIN, SERUM 6.9 g/dL (6.4-8.2)
[2023-12-09 16:47] LABS: UREA NITROGEN, BLOOD 109 mg/dL (7-18)
[2023-12-09 16:50] LABS: CALCIUM, SERUM 8.3 mg/dL (8.5-10.1)
[2023-12-09] MEDS ORDERED: ACETAMINOPHEN 325 MG TABLET PO ONE (18:00)
[2023-12-09 20:00] VITALS: BP 153/74; TEMP 97.5; O2SAT 98
[2023-12-09] MEDS ORDERED: DEXTROSE 50%-WATER 50 ML DISP.SYRIN IV PRN (20:00)
[2023-12-09 20:30] VITALS: BP 153/74; TEMP 97.5; O2SAT 98
[2023-12-09] MEDS: METOLAZONE 2.5 MG TABLET PO SCH (22:05)
[2023-12-09] MEDS: CARVEDILOL 12.5 MG TABLET PO SCH (22:08)
[2023-12-09] MEDS: PIPERCILLIN/TAZOBACTAM 2.25GM/D5W 50MLPB IV ONE (22:28)
[2023-12-09] MEDS: PIPERACILLIN /TAZOBACTAM 2.25 G in IV D5W 50 ML IV SCH (22:35)
[2023-12-09] MEDS: BLOOD SUGAR DIAGNOSTIC 1 EACH STRIP VI SCH (22:47)
[2023-12-09] MEDS: *INSULIN REGULAR(HUMULIN R)HUM 100 UNIT/ML VIAL SQ PRN (22:54)
[2023-12-09] MEDS: diphenhydrAMINE HCL ELIX 25 MG/10 ML UDC PO PRN (23:43)
[2023-12-10] VITALS: BP 139/89; TEMP 98.1; O2SAT 98
[2023-12-10] MEDS: hydrALAZINE HCL 50 MG TABLET PO SCH (00:38)
[2023-12-10] MEDS: PIPERCILLIN/TAZOBACTAM 2.25GM/D5W 50MLPB IV ONE (04:55)
[2023-12-10 05:00] VITALS: BP 145/69; TEMP 97.9; O2SAT 97
[2023-12-10] MEDS: INSULIN REGULAR, HUMAN 100 UNIT/ML 3 ML VIAL SQ PRN (05:26)
[2023-12-10 07:35] LABS: BASOPHILS # (AUTO) 0.1 K/uL (0.0-0.2); BASOPHILS % (AUTO) 1.4 % (0.0-2.0); EOSINOPHILS # (AUTO) 0.1 K/uL (0.0-0.7); EOSINOPHILS % (AUTO) 3.1 % (0.0-6.0); HEMATOCRIT 22 % (33-45); HEMOGLOBIN 7.3 g/dL (11.5-14.8); LYMPHOCYTES # (AUTO) 0.4 K/uL (0.8-4.8); LYMPHOCYTES % (AUTO) 9.6 % (20.0-44.0); MEAN CORPUSCULAR HEMOGLOBIN 28 PG (26.0-33.0); MEAN CORPUSCULAR HGB CONC 33 g/dl (31.0-36.0); MEAN CORPUSCULAR VOLUME 86 fL (82-100); MONOCYTES # (AUTO) 0.4 K/uL (0.1-1.30); MONOCYTES % (AUTO) 11.1 % (2.0-12.0); NEUTROPHILS # (AUTO) 2.9 K/uL (1.8-8.9); NEUTROPHILS % (AUTO) 74.8 % (43.0-81.0); PLATELET COUNT (AUTO) 196 K/uL (150-450); RED BLOOD CELL COUNT(AUTO) 2.61 MIL/uL (4.0-5.2); WHITE BLOOD COUNT (AUTO) 3.9 K/uL (4.3-11.0)
[2023-12-10 07:41] LABS: CALCIUM, SERUM 8.5 mg/dL (8.5-10.1); CARBON DIOXIDE 24 mmol/L (21-32); CHLORIDE 100 mmol/L (98-107); CREATININE 2.2 mg/dL (0.6-1.3); GLUCOSE 137 mg/dL (74-106); POTASSIUM 4.5 mmol/L (3.5-5.1); SODIUM SERUM 134 mmol/L (136-145)
[2023-12-10 08:00] VITALS: BP 118/74; TEMP 98.2; O2SAT 94
[2023-12-10] MEDS ORDERED: hydrALAZINE HCL 50 MG TABLET PO SCH (09:00)
[2023-12-10] MEDS ORDERED: METOLAZONE 2.5 MG TABLET PO SCH (09:00)
[2023-12-10] MEDS ORDERED: BUMETANIDE INJ 0.25 MG/ML VIAL IV SCH (09:00)
[2023-12-10] MEDS ORDERED: CARVEDILOL 12.5 MG TABLET PO SCH (09:00)
[2023-12-10 10:09] LABS: UREA NITROGEN, BLOOD 109 mg/dL (7-18)
[2023-12-10] MEDS: LINAGLIPTIN 5 MG TABLET PO SCH (10:20)
[2023-12-10] MEDS: ASPIRIN 81 MG TAB.CHEW PO SCH (10:20)
[2023-12-10 12:00] VITALS: BP 139/75; TEMP 97.5; O2SAT 96
[2023-12-10] MEDS ORDERED: PIPERACILLIN /TAZOBACTAM 2.25 G in IV D5W 50 ML IV SCH (13:00)
[2023-12-10 16:00] VITALS: BP 121/65; TEMP 97.4; O2SAT 96
[2023-12-10] MEDS: BUMETANIDE INJ 0.25 MG/ML VIAL IV SCH (16:20)
[2023-12-10 20:00] VITALS: BP 126/62; TEMP 97.7; O2SAT 96
[2023-12-10] MEDS: HEPARIN SODIUM, PORCINE 5000 UNITS/1 ML VIAL SQ SCH (20:50)
[2023-12-11] VITALS: BP 145/65; TEMP 97.6; O2SAT 98
[2023-12-11 04:00] VITALS: BP 134/64; TEMP 97.7; O2SAT 98
[2023-12-11 07:30] VITALS: BP 130/66; TEMP 97.5; O2SAT 96
[2023-12-11 07:33] LABS: BASOPHILS # (AUTO) 0.1 K/uL (0.0-0.2); BASOPHILS % (AUTO) 1.6 % (0.0-2.0); EOSINOPHILS # (AUTO) 0.2 K/uL (0.0-0.7); EOSINOPHILS % (AUTO) 4.3 % (0.0-6.0); HEMATOCRIT 22 % (33-45); HEMOGLOBIN 7.2 g/dL (11.5-14.8); LYMPHOCYTES # (AUTO) 0.4 K/uL (0.8-4.8); LYMPHOCYTES % (AUTO) 11.5 % (20.0-44.0); MEAN CORPUSCULAR HEMOGLOBIN 29 PG (26.0-33.0); MEAN CORPUSCULAR HGB CONC 33 g/dl (31.0-36.0); MEAN CORPUSCULAR VOLUME 86 fL (82-100); MONOCYTES # (AUTO) 0.5 K/uL (0.1-1.30); MONOCYTES % (AUTO) 14.1 % (2.0-12.0); NEUTROPHILS # (AUTO) 2.6 K/uL (1.8-8.9); NEUTROPHILS % (AUTO) 68.5 % (43.0-81.0); PLATELET COUNT (AUTO) 178 K/uL (150-450); RED BLOOD CELL COUNT(AUTO) 2.52 MIL/uL (4.0-5.2); RED CELL DISTRIBUTION WIDTH 15.9 % (11.5-15.0); WHITE BLOOD COUNT (AUTO) 3.9 K/uL (4.3-11.0)
[2023-12-11 07:42] LABS: CREATINE KINASE, TOTAL 85 U/L (26-192)
[2023-12-11 08:42] LABS: ALANINE AMINOTRANSFERASE 50 U/L (12-78); ALKALINE PHOSPHATASE 549 U/L (46-116); ASPARTATE AMINOTRANSFERASE 34 U/L (15-37); BILIRUBIN,TOTAL 0.5 mg/dL (0.2-1.0); CALCIUM, SERUM 8.4 mg/dL (8.5-10.1); CARBON DIOXIDE 23 mmol/L (21-32); CHLORIDE 99 mmol/L (98-107); CREATININE 2.3 mg/dL (0.6-1.3); GLUCOSE 84 mg/dL (74-106); PHOSPHORUS 6.2 mg/dL (2.5-4.9); POTASSIUM 4.7 mmol/L (3.5-5.1); SODIUM SERUM 133 mmol/L (136-145); TOTAL PROTEIN, SERUM 6.4 g/dL (6.4-8.2)
[2023-12-11 08:44] LABS: UREA NITROGEN, BLOOD 111 mg/dL (7-18)
[2023-12-11 16:00] VITALS: BP 134/62; TEMP 98.1; O2SAT 97
[2023-12-11 20:00] VITALS: BP 157/68; TEMP 98.2; O2SAT 96
[2023-12-11 20:14] LABS: APPEARANCE,URINE CLEAR (CLEAR); BILIRUBIN,URINE NEGATIVE (NEGATIVE); BLOOD, URINE NEGATIVE Ery/uL (NEGATIVE); COLOR,URINE YELLOW (YELLOW); KETONES,URINE NEGATIVE (NEGATIVE); LEUKOCYTE ESTERASE ,URINE NEGATIVE (NEGATIVE); NITRITE, URINE NEGATIVE (NEGATIVE); PH,URINE 5.5 (5.0-8.0); PROTEIN,URINE 1+ mg/dl (NEGATIVE); UGLUCOSE NEGATIVE (NEGATIVE); UROBILINOGEN,URINE 0.2 EU/dL (0.2)
[2023-12-11 20:24] VITALS: BP 157/68; TEMP 98.2; O2SAT 96
[2023-12-11 20:29] LABS: CREATININE, URINE 13.2 MG/DL (30.0-125.0)
[2023-12-11 20:34] LABS: ADD URINE CULTURE NO; BACTERIA,URINE Few /HPF (None Seen); RBC,URINE 0-2 /HPF (0-2); SQUAMOUS EPITHELIAL CELL,UR Rare /HPF (None Seen); WBC,URINE NONE SEEN /HPF (0-3)
[2023-12-11] MEDS: ACETAMINOPHEN 325 MG TABLET PO PRN (21:56)
[2023-12-11 21:59] LABS: EOSINOPHIL,URINE None Seen
[2023-12-12] VITALS (8 sets, daily range): BP systolic 107–146; BP diastolic 56–66; TEMP 92.8–98.8; O2SAT 93–100
[2023-12-12 10:25] LABS: BASOPHILS % (AUTO) 1.5 % (0.0-2.0); EOSINOPHILS # (AUTO) 0.1 K/uL (0.0-0.7); EOSINOPHILS % (AUTO) 5.6 % (0.0-6.0); HEMATOCRIT 23 % (33-45); HEMOGLOBIN 7.8 g/dL (11.5-14.8); LYMPHOCYTES # (AUTO) 0.3 K/uL (0.8-4.8); LYMPHOCYTES % (AUTO) 13.1 % (20.0-44.0); MEAN CORPUSCULAR HEMOGLOBIN 29 PG (26.0-33.0); MEAN CORPUSCULAR HGB CONC 33 g/dl (31.0-36.0); MEAN CORPUSCULAR VOLUME 86 fL (82-100); MONOCYTES # (AUTO) 0.3 K/uL (0.1-1.30); MONOCYTES % (AUTO) 12.4 % (2.0-12.0); NEUTROPHILS # (AUTO) 1.7 K/uL (1.8-8.9); NEUTROPHILS % (AUTO) 67.4 % (43.0-81.0); PLATELET COUNT (AUTO) 173 K/uL (150-450); RED BLOOD CELL COUNT(AUTO) 2.71 MIL/uL (4.0-5.2); RED CELL DISTRIBUTION WIDTH 15.9 % (11.5-15.0); WHITE BLOOD COUNT (AUTO) 2.6 K/uL (4.3-11.0)
[2023-12-12 10:34] LABS: CALCIUM, SERUM 8.6 mg/dL (8.5-10.1); CARBON DIOXIDE 24 mmol/L (21-32); CHLORIDE 97 mmol/L (98-107); CREATININE 2.3 mg/dL (0.6-1.3); GLUCOSE 113 mg/dL (74-106); POTASSIUM 4.3 mmol/L (3.5-5.1); SODIUM SERUM 133 mmol/L (136-145)
[2023-12-12 10:36] LABS: UREA NITROGEN, BLOOD 112 mg/dL (7-18)
[2023-12-13] VITALS: BP 140/56; TEMP 98.9; O2SAT 97
[2023-12-13 04:00] VITALS: BP 140/71; TEMP 98; O2SAT 96
[2023-12-13 06:51] LABS: BASOPHILS % (AUTO) 1.5 % (0.0-2.0); EOSINOPHILS # (AUTO) 0.1 K/uL (0.0-0.7); EOSINOPHILS % (AUTO) 4.2 % (0.0-6.0); HEMATOCRIT 22 % (33-45); HEMOGLOBIN 7.3 g/dL (11.5-14.8); LYMPHOCYTES # (AUTO) 0.3 K/uL (0.8-4.8); LYMPHOCYTES % (AUTO) 11.7 % (20.0-44.0); MEAN CORPUSCULAR HEMOGLOBIN 28 PG (26.0-33.0); MEAN CORPUSCULAR HGB CONC 33 g/dl (31.0-36.0); MEAN CORPUSCULAR VOLUME 85 fL (82-100); MONOCYTES # (AUTO) 0.4 K/uL (0.1-1.30); MONOCYTES % (AUTO) 13.4 % (2.0-12.0); NEUTROPHILS # (AUTO) 1.9 K/uL (1.8-8.9); NEUTROPHILS % (AUTO) 69.2 % (43.0-81.0); PLATELET COUNT (AUTO) 167 K/uL (150-450); RED BLOOD CELL COUNT(AUTO) 2.58 MIL/uL (4.0-5.2); RED CELL DISTRIBUTION WIDTH 15.5 % (11.5-15.0); WHITE BLOOD COUNT (AUTO) 2.7 K/uL (4.3-11.0)
[2023-12-13 07:12] LABS: INR 1.12 (0.91-1.10); PARTIAL THROMBOPLASTIN TIME 38.3 SEC (24.3-34.3); PROTHROMBIN TIME 11.8 SECS (9.2-11.1)
[2023-12-13 07:30] VITALS: BP 129/84; TEMP 97.6; O2SAT 99
[2023-12-13 07:38] LABS: CALCIUM, SERUM 8.4 mg/dL (8.5-10.1); CARBON DIOXIDE 23 mmol/L (21-32); CHLORIDE 97 mmol/L (98-107); CREATININE 2.2 mg/dL (0.6-1.3); POTASSIUM 4.1 mmol/L (3.5-5.1); SODIUM SERUM 132 mmol/L (136-145)
[2023-12-13 07:51] LABS: GLUCOSE 48 mg/dL (74-106)
[2023-12-13 07:52] LABS: UREA NITROGEN, BLOOD 109 mg/dL (7-18)
[2023-12-13 12:00] VITALS: BP 134/60; TEMP 97.6; O2SAT 94
[2023-12-13 16:00] VITALS: BP 159/80; TEMP 97.3; O2SAT 97
[2023-12-13 20:00] VITALS: BP_SYST 124; BP_SYST 129; BP_DIAS 75; TEMP 98.1; O2SAT 98
[2023-12-14] VITALS (7 sets, daily range): BP systolic 118–139; BP diastolic 55–76; TEMP 97.6–98.1; O2SAT 95–97
[2023-12-15] VITALS (7 sets, daily range): BP systolic 124–149; BP diastolic 51–65; TEMP 97.3–98.1; O2SAT 91–99
[2023-12-15 06:20] LABS: EOSINOPHILS # (AUTO) 0.1 K/uL (0.0-0.7); EOSINOPHILS % (AUTO) 1.9 % (0.0-6.0); HEMATOCRIT 22 % (33-45); HEMOGLOBIN 7.4 g/dL (11.5-14.8); LYMPHOCYTES # (AUTO) 0.5 K/uL (0.8-4.8); MEAN CORPUSCULAR HEMOGLOBIN 29 PG (26.0-33.0); MEAN CORPUSCULAR HGB CONC 34 g/dl (31.0-36.0); MEAN CORPUSCULAR VOLUME 85 fL (82-100); MONOCYTES # (AUTO) 0.4 K/uL (0.1-1.30); MONOCYTES % (AUTO) 13.7 % (2.0-12.0); NEUTROPHILS # (AUTO) 2.1 K/uL (1.8-8.9); NEUTROPHILS % (AUTO) 67.4 % (43.0-81.0); PLATELET COUNT (AUTO) 158 K/uL (150-450); RED CELL DISTRIBUTION WIDTH 15.7 % (11.5-15.0); WHITE BLOOD COUNT (AUTO) 3.2 K/uL (4.3-11.0)
[2023-12-15 06:57] LABS: ALANINE AMINOTRANSFERASE 43 U/L (12-78); ALKALINE PHOSPHATASE 524 U/L (46-116); ASPARTATE AMINOTRANSFERASE 27 U/L (15-37); BILIRUBIN,TOTAL 0.5 mg/dL (0.2-1.0); CALCIUM, SERUM 8.5 mg/dL (8.5-10.1); CARBON DIOXIDE 25 mmol/L (21-32); CHLORIDE 98 mmol/L (98-107); CREATININE 2.3 mg/dL (0.6-1.3); GLUCOSE 75 mg/dL (74-106); POTASSIUM 4.1 mmol/L (3.5-5.1); SODIUM SERUM 134 mmol/L (136-145); TOTAL PROTEIN, SERUM 6.5 g/dL (6.4-8.2)
[2023-12-15 06:59] LABS: UREA NITROGEN, BLOOD 118 mg/dL (7-18)
[2023-12-16] VITALS (7 sets, daily range): BP systolic 118–157; BP diastolic 52–69; TEMP 97.5–98.2; O2SAT 92–96
[2023-12-16 10:42] LABS: BASOPHILS % (AUTO) 1.1 % (0.0-2.0); EOSINOPHILS # (AUTO) 0.1 K/uL (0.0-0.7); EOSINOPHILS % (AUTO) 1.5 % (0.0-6.0); HEMATOCRIT 23 % (33-45); HEMOGLOBIN 7.5 g/dL (11.5-14.8); LYMPHOCYTES # (AUTO) 0.4 K/uL (0.8-4.8); LYMPHOCYTES % (AUTO) 11.9 % (20.0-44.0); MEAN CORPUSCULAR HEMOGLOBIN 28 PG (26.0-33.0); MEAN CORPUSCULAR HGB CONC 33 g/dl (31.0-36.0); MEAN CORPUSCULAR VOLUME 86 fL (82-100); MONOCYTES # (AUTO) 0.4 K/uL (0.1-1.30); MONOCYTES % (AUTO) 11.3 % (2.0-12.0); NEUTROPHILS # (AUTO) 2.7 K/uL (1.8-8.9); NEUTROPHILS % (AUTO) 74.2 % (43.0-81.0); PLATELET COUNT (AUTO) 162 K/uL (150-450); RED BLOOD CELL COUNT(AUTO) 2.66 MIL/uL (4.0-5.2); WHITE BLOOD COUNT (AUTO) 3.6 K/uL (4.3-11.0)
[2023-12-16 11:03] LABS: ALANINE AMINOTRANSFERASE 36 U/L (12-78); ALBUMIN 1.9 g/dL (3.4-5.0); ALKALINE PHOSPHATASE 510 U/L (46-116); ASPARTATE AMINOTRANSFERASE 27 U/L (15-37); BILIRUBIN,TOTAL 0.6 mg/dL (0.2-1.0); CALCIUM, SERUM 8.6 mg/dL (8.5-10.1); CARBON DIOXIDE 28 mmol/L (21-32); CHLORIDE 97 mmol/L (98-107); CREATININE 2.2 mg/dL (0.6-1.3); GLUCOSE 153 mg/dL (74-106); MAGNESIUM 2.8 mg/dL (1.8-2.4); PHOSPHORUS 5.9 mg/dL (2.5-4.9); POTASSIUM 4.1 mmol/L (3.5-5.1); SODIUM SERUM 135 mmol/L (136-145); TOTAL PROTEIN, SERUM 6.5 g/dL (6.4-8.2)
[2023-12-16 11:04] LABS: UREA NITROGEN, BLOOD 118 mg/dL (7-18)
[2023-12-17 07:17] LABS: INR 1.13 (0.91-1.10); PARTIAL THROMBOPLASTIN TIME 35.1 SEC (24.3-34.3); PROTHROMBIN TIME 11.9 SECS (9.2-11.1)
[2023-12-17 07:46] VITALS: O2SAT 98
[2023-12-17 08:00] VITALS: BP 160/64; TEMP 97.9; O2SAT 97
[2023-12-17] MEDS ORDERED: LIDOCAINE HCL/MPF 1% 30 ML VIAL IJ ONE ×2 (12:05→12:53)
[2023-12-17] MEDS ORDERED: HEPARIN SODIUM, PORCINE 1,000 UNIT/ML VIAL ONE ×2 (12:06→13:52)
[2023-12-17] MEDS ORDERED: IODIXANOL 320MG/ML 50 ML IV ONE (12:13)
[2023-12-17] MEDS ORDERED: IV SET PRIMARY PUMP SET 1 EA INFUS.SET MC ONE (12:16)
[2023-12-17] MEDS: CEFAZOLIN 2 GM in IV D5W 100 ML IV ONE (12:30)
[2023-12-17] MEDS ORDERED: ANESTHESIA TRAY IN PYXIS 1 EA TRAY MC ONE (12:53)
[2023-12-17] MEDS ORDERED: FENTANYL PF 100MCG/2ML AMPUL ONE (12:58)
[2023-12-17] MEDS ORDERED: KETAMINE HCL (500MG/10ML) 50 MG/ML VIAL ONE (12:58)
[2023-12-17] MEDS ORDERED: FAMOTIDINE/PF INJ 20 MG/2 ML VIAL IV ONE (12:59)
[2023-12-17] MEDS ORDERED: IOHEXOL 0 ML IV ONE (13:02)
[2023-12-17] MEDS ORDERED: CELLULOSE,OXIDIZED 1 EACH EACH MC ONE (13:52)
[2023-12-17] MEDS ORDERED: ROPIVACAINE HCL 0.5% 5 MG/ML 30ML VIAL ONE (14:06)
[2023-12-17 16:00] VITALS: BP 149/61; TEMP 97.4; O2SAT 98
[2023-12-17 20:00] VITALS: BP_SYST 156; BP_DIAS 65; BP_DIAS 68; TEMP 97.5; O2SAT 94
[2023-12-17] MEDS: TRAMADOL HCL 50 MG TABLET PO PRN (22:43)
[2023-12-17] MEDS: CEFAZOLIN 1 GM in IV D5W 50 ML IV SCH (22:56)
[2023-12-18 03:06] LABS: HEPATITIS B CORE AB, IgM Negative (Negative); HEPATITIS B CORE AB, TOTAL Negative (Negative); HEPATITIS B SURFACE AB Non Reactive (.)
[2023-12-18 07:12] LABS: BASOPHILS % (AUTO) 0.5 % (0.0-2.0); EOSINOPHILS % (AUTO) 0.8 % (0.0-6.0); HEMATOCRIT 22 % (33-45); HEMOGLOBIN 7.3 g/dL (11.5-14.8); LYMPHOCYTES # (AUTO) 0.3 K/uL (0.8-4.8); LYMPHOCYTES % (AUTO) 7.8 % (20.0-44.0); MEAN CORPUSCULAR HEMOGLOBIN 28 PG (26.0-33.0); MEAN CORPUSCULAR HGB CONC 34 g/dl (31.0-36.0); MEAN CORPUSCULAR VOLUME 85 fL (82-100); MONOCYTES # (AUTO) 0.3 K/uL (0.1-1.30); MONOCYTES % (AUTO) 6.7 % (2.0-12.0); NEUTROPHILS # (AUTO) 3.7 K/uL (1.8-8.9); NEUTROPHILS % (AUTO) 84.2 % (43.0-81.0); PLATELET COUNT (AUTO) 96 K/uL (150-450); RED BLOOD CELL COUNT(AUTO) 2.59 MIL/uL (4.0-5.2); RED CELL DISTRIBUTION WIDTH 15.6 % (11.5-15.0); WHITE BLOOD COUNT (AUTO) 4.4 K/uL (4.3-11.0)
[2023-12-18 07:45] VITALS: O2SAT 96
[2023-12-18 08:00] VITALS: BP 157/66; TEMP 97.5; O2SAT 94
[2023-12-18 09:33] LABS: ALANINE AMINOTRANSFERASE 31 U/L (12-78); ALBUMIN 1.9 g/dL (3.4-5.0); ALKALINE PHOSPHATASE 466 U/L (46-116); ASPARTATE AMINOTRANSFERASE 28 U/L (15-37); BILIRUBIN,TOTAL 0.6 mg/dL (0.2-1.0); CALCIUM, SERUM 8.5 mg/dL (8.5-10.1); CARBON DIOXIDE 31 mmol/L (21-32); CHLORIDE 97 mmol/L (98-107); CREATININE 1.7 mg/dL (0.6-1.3); GLUCOSE 157 mg/dL (74-106); POTASSIUM 3.5 mmol/L (3.5-5.1); SODIUM SERUM 136 mmol/L (136-145); TOTAL PROTEIN, SERUM 6.3 g/dL (6.4-8.2); UREA NITROGEN, BLOOD 79 mg/dL (7-18)
[2023-12-18] MEDS ORDERED: FLUMAZENIL 0.5 MG VIAL IV PRN (10:00)
[2023-12-18] MEDS ORDERED: NALOXONE PREFILLED SYRINGE 2 MG/2 ML SYRINGE IV PRN (10:00)
[2023-12-18] MEDS ORDERED: FENTANYL PF 250MCG/5ML AMPUL IV PRN (10:00)
[2023-12-18] MEDS ORDERED: MIDAZOLAM HCL 2 MG/2ML VIAL IV PRN (10:00)
[2023-12-18 10:27] LABS: ANISOCYTOSIS 1+; BASOPHILS % (MANUAL) 0 % (0.0-2.0); EOSINOPHILS % (MANUAL) 0 % (0-4); HYPOCHROMASIA 1+; LYMPHOCYTES % (MANUAL) 9 % (16-48); MONOCYTES % (MANUAL) 4 % (0-11.0); NEUTROPHILS % (MANUAL) 87 (42-76); PLATELET ESTIMATE DECREASED
[2023-12-18 16:00] VITALS: BP 106/47; TEMP 97.4; O2SAT 96
[2023-12-18 20:00] VITALS: BP 133/71; TEMP 97.5; O2SAT 96
[2023-12-18 21:15] VITALS: O2SAT 96
[2023-12-19 07:30] VITALS: BP 161/68; TEMP 98.1; O2SAT 98
[2023-12-19] MEDS ORDERED: LINA5TAB PO (08:47)
[2023-12-19 15:57] VITALS: BP 148/69; TEMP 98.2; O2SAT 96
[2023-12-19 17:33] VITALS: BP 148/69
== END 2023-12-19 18:30 | DRG 291 ==
LOC: ER 15:41 → TELE 18:43 → MED 12-16 11:20
PROVIDERS: ADMIT Internal Medicine; ATTEND Internal Medicine
PROC: 0JH63XZ Insertion of Tunneled Vascular Access Device into Chest Subcutaneous Tissue and Fascia, Percutaneous Approach (ICD-10-PCS; principal; 2023-12-17)
PROC: 02HV33Z Insertion of Infusion Device into Superior Vena Cava, Percutaneous Approach (ICD-10-PCS; 2023-12-17)
PROC: B518YZA Fluoroscopy of Superior Vena Cava using Other Contrast, Guidance (ICD-10-PCS; 2023-12-17)
PROC: 5A1D70Z Performance of Urinary Filtration, Intermittent, Less than 6 Hours Per Day (ICD-10-PCS; 2023-12-17)
PROC: 05JY3ZZ Inspection of Upper Vein, Percutaneous Approach (ICD-10-PCS; 2023-12-17)
PROC: 0TB13ZX Excision of Left Kidney, Percutaneous Approach, Diagnostic (ICD-10-PCS; 2023-12-18)
DX: I13.0 Hypertensive heart and chronic kidney disease with heart failure and stage 1 through stage 4 chronic kidney disease, or unspecified chronic kidney disease (principal); I50.33 Acute on chronic diastolic (congestive) heart failure; N18.4 Chronic kidney disease, stage 4 (severe); J90 Pleural effusion, not elsewhere classified; E11.22 Type 2 diabetes mellitus with diabetic chronic kidney disease; D63.8 Anemia in other chronic diseases classified elsewhere; D50.9 Iron deficiency anemia, unspecified; I25.10 Atherosclerotic heart disease of native coronary artery without angina pectoris; Z79.82 Long term (current) use of aspirin; Z87.01 Personal history of pneumonia (recurrent); Z20.822 Contact with and (suspected) exposure to COVID-19
CPT/HCPCS: 36415; 71045-TC; 76770-TC; 77012-TC; 80048-TC; 80053-TC; 80076-TC; 81001; 82550-TC; 82570-TC; 82962-TC; 83735-TC; 83880; 83970; 84100-TC; 84155; 84165; 84300-TC; 84484-TC; 85025-TC; 85610-TC; 85730-TC; 86704; 86705; 86706; 86803; 87340; 94760-TC; 94761-TC; 94762-TC; 94799-TC; 97110-TC; 97112-TC; 97116-TC; 97530-TC; 97535-TC; A4223; C1750; C1769; G0378; J0690; J1644; J1815; J2250; J2405; J2543; J2704; J2795; J3010; J3490; J7050; J7060; Q0163; Q9967